=== PATIENT | female | born 1955 | race African-American/Black ===

== ENCOUNTER 2022-03-08 12:22 | Outpatient (CLI) | payer MEDICARE, SELFPAY ==
--- NOTE | 2022-03-08 | ECHO_ITS ---
Patient Info Name: Pauline Contreras Age: 66 years : 1955 Gender: Female Ht: 68 in Wt: 230 lbs BSA: 2.28 m2 HR: 64 bpm BP: 128 / 80 mmHg Heart Rhythm: Sinus Rhythm Exam Date: 03/08/2022 1:14 PM Exam Location: [facility] Patient Status: Preadmit Admit Date: 03/10/2022 Staff Ordering Physician: NatalyaKevin MD Spark Plug Tester: Rupal Bhatt RDCS Attending Provider: Michael, Kevin Hayes MD Referring Physician: Natalya LOPEZ; Exam Type: CA echo doppler color flow Study Info Indications - atypical aortic valve stenosis Complete two-dimensional, color flow and Doppler transthoracic echocardiogram is performed. Summary 1. Complete two-dimensional, color flow and Doppler transthoracic echocardiogram is performed. 2. Normal left ventricular size with mild concentric hypertrophy. Good systolic function of all segments with an ejection fraction of 64%. Normal diastolic function. 3. Mild aortic valve sclerosis with good excursion. Probably trileaflet although not all leaflets imaged well. No evidence of aortic or subaortic valve stenosis. 4. Unable to calculate the right ventricular systolic pressure on this study. 5. Normal sinus rhythm. Left Ventricle Left ventricular chamber dimension is normal. Left ventricular systolic function is normal, estimated at 65-70%. There is mildly increased left ventricular wall thickness. Left ventricular septal wall motion is normal. The left ventricular diastolic function is normal. Right Ventricle Right ventricular chamber dimension is normal. Right ventricular systolic function is normal. Left Atria Left atrial chamber dimension is mildly enlarged. Right Atria Right atrial chamber dimension is normal. Aortic Valve The aortic valve is probable trileaflet. There is mild aortic valve sclerosis. There is no aortic valve stenosis. There is no aortic valve regurgitation. Pulmonic Valve The pulmonic valve is normal. There is no pulmonic valve stenosis. There is no pulmonic regurgitation. Mitral Valve The mitral valve has normal leaflets. There is no mitral valve stenosis. There is no mitral valve regurgitation. Tricuspid Valve The tricuspid valve leaflets are normal. There is no significant tricuspid valve stenosis. There is trace tricuspid valve regurgitation. No pulmonary hypertension, estimated pulmonary arterial systolic pressure is Empty. Pericardium/Pleural The pericardium appears normal. There is no pericardial effusion. Inferior Vena Cava Normal inferior vena cava with >50% collapse upon inspiration consistent with Empty right atrial pressure, Empty. Aorta The aortic root size at the sinus of Valsalva is normal. The prox ascending aorta size is normal. Left Ventricular Outflow Tract Name Value Normal LVOT 2D LVOT Diameter 1.7 cm LVOT Doppler LVOT Peak Gradient 6 mmHg LVOT Mean Gradient 3 mmHg LVOT VTI 26 cm LVOT VTI/AV VTI Ratio 1.0 LVOT Stroke Volume
== END 2022-03-08 12:23 | disposition home or self-care (01) ==
LOC: ANHCARD 12:23
PROVIDERS: PCP Family Medicine
DX: I35.0 Nonrheumatic aortic (valve) stenosis (principal)
CPT/HCPCS: 93306

== ENCOUNTER 2022-03-10 15:04 | Outpatient (CLI) | payer MEDICARE, SELFPAY ==
--- NOTE | ~2022-03-10 | MM_ITS ---
EXAMINATION: MM screening mike BI w michelle HISTORY: Screening mammogram TECHNIQUE: Craniocaudal and mediolateral oblique 3-D tomosynthesis images were obtained and synthetic 2-D images were generated. CAD analysis was submitted and interpreted. COMPARISON: 01/16/2017 BREAST PARENCHYMAL COMPOSITION: There are scattered areas of fibroglandular density. FINDINGS: There is no suspicious mass, calcification, or architectural distortion to suggest malignan cy in either breast. There has been no suspicious interval change. IMPRESSION: 1. No mammographic evidence of malignancy. 2. Recommend routine screening mammography in one year. BI-RADS Category 1: Negative Reviewed, dictated and finalized at location A.
== END 2022-03-10 15:05 | disposition home or self-care (01) ==
PROVIDERS: PCP Family Medicine; Visit Provider Family Medicine
DX: Z12.31 Encounter for screening mammogram for malignant neoplasm of breast (principal); I35.0 Nonrheumatic aortic (valve) stenosis
CPT/HCPCS: 77063; 77067; 93306

== ENCOUNTER 2023-09-05 13:53 | Outpatient (CLI) | payer MEDICARE, SELFPAY ==
--- NOTE | ~2023-09-05 | CT_ITS ---
Non-contrast CT scan of the Abdomen and Pelvis Clinical indication: Flank pain Technique: 2.5 mm axial scans were obtained through the abdomen and pelvis without intravenous or or al contrast. Dose reduction technique was used on this scan by utilizing automated exposure control a nd iterative reconstruction technique. The dose-length product (DLP) was 909.80 mGy-cm. Findings: Images through the lung bases reveal large hiatal hernia. There is no evidence of renal or ureteral calculi. The kidneys and the ureters are nondilated. The liver, pancreas, gallbladder, and adrenals appear normal. There is no aortic aneurysm. There is no evidence of bowel obstruction. There is a ventral hernia inferior to the umbilicus in the midline, containing multiple small bowel loops. There is a fat-containing umbilical hernia just righ t of midline. Images through the pelvis were performed. There is no evidence of ascites or lymphadenopathy. Urinary bladder unremarkable. No pelvic mass seen. Impression: No acute abnormality evident. Ventral hernia inferior to the iliacus contains multiple small bowel loops. No bowel obstruction or b owel wall thickening. Additional fat-containing umbilical hernia. Reviewed, dictated and finalized at location . Impression: No acute abnormality evident. Ventral hernia inferior to the iliacus contains multiple small bowel loops. No bowel obstruction or bowel wall thickening. Additional fat-containing umbilical hernia.
== END 2023-09-05 13:54 ==
PROVIDERS: PCP Family Medicine; Visit Provider Family Medicine
DX: K43.9 Ventral hernia without obstruction or gangrene (principal); K42.9 Umbilical hernia without obstruction or gangrene
CPT/HCPCS: 74176

== ENCOUNTER 2023-12-25 13:20 | Outpatient (CLI) | payer MEDICARE, MEDICAID, SELFPAY ==
--- NOTE | ~2023-12-25 | MM_ITS ---
EXAMINATION: MM screening mike BI w michelle HISTORY: Screening TECHNIQUE: Craniocaudal and mediolateral oblique 3-D tomosynthesis images were obtained and synthetic 2-D images were generated. CAD analysis was submitted and interpreted. COMPARISON: Comparison to multiple prior studies sequentially, with oldest reviewed study dated 01/16. BREAST PARENCHYMAL COMPOSITION: Not dense: There are scattered areas of fibroglandular density. FINDINGS: There is no evidence of suspicious mass, calcification, or architectural distortion to sugg est malignancy in either breast. There has been no suspicious interval change. IMPRESSION: 1. No mammographic evidence of malignancy. 2. Recommend routine screening mammography in one year. BI-RADS Category 1: Negative Reviewed, dictated and finalized at location B.
== END 2023-12-25 13:21 | disposition home or self-care (01) ==
LOC: ANHIMG 13:25
PROVIDERS: PCP Family Medicine; Visit Provider Family Medicine
DX: Z12.31 Encounter for screening mammogram for malignant neoplasm of breast (principal)
CPT/HCPCS: 77063; 77067

== ENCOUNTER 2024-08-09 12:32 | Outpatient (CLI) | payer MEDICARE, SELFPAY ==
--- OUTSIDE RECORDS SUMMARY | 2024-08-09 12:37 | XMS_ITS | Referral Summary ---
Author Organization [facility] Address [address] [place] [address] Care Team Providers Care Mitten Stitcher Name Role Phone Luisito Conrad MD Unavailable [phone] Kevin Hoang MD Primary Care Provider Audie Escalera MD Unavailable [phone] Robinson Iyer MD Unavailable Encounters Date Type Department Care Team Description 07/30/2024 10:20 AM OPERATIONAL INTELLIGENCE OFFICER Office Visit [address] [place] [phone] Robinson Iyer MD Ventral hernia without obstruction or gangrene 07/24/2024 Telephone [facility] Primary Care at [address] [phone] Kevin Hoang MD Medical Question/Miscellaneous 07/23/2024 11:30 AM OPERATIONAL INTELLIGENCE OFFICER Office Visit [facility] Medical [facility] Primary Care at [address] [phone] Laya Ramirez NP Ventral hernia without obstruction or gangrene (Primary Dx); Primary osteoarthritis of both knees; Mild episode of recurrent major depressive disorder (HCC); Slow transit constipation 07/22/2024 Telephone [facility] Primary Care at [address] [phone] Kevin Hoang MD Medical Question/Miscellaneous 07/08/2024 Telephone [facility] Primary Care at [address] [phone] Cate Fernandez MA 07/03/2024 10:50 AM OPERATIONAL INTELLIGENCE OFFICER - 07/03/2024 11:59 PM OPERATIONAL INTELLIGENCE [place] [address] COPD with acute exacerbation (HCC); Shortness of breath Discharge Disposition: Discharge to home or self care 07/03/2024 Telephone [facility] Primary Care at [address] [phone] Kevin Hoang MD Hernia Question ; Medical Question/Miscellaneous 07/03/2024 11:00 AM OPERATIONAL INTELLIGENCE OFFICER Lab [facility] Outpatient Lab at [address] [phone] COPD (chronic obstructive pulmonary disease) (HCC) (Primary Dx) 07/03/2024 11:00 AM OPERATIONAL INTELLIGENCE OFFICER Ancillary Procedure [facility] Imaging at [address] [phone] COPD with acute exacerbation (HCC) 07/03/2024 10:15 AM OPERATIONAL INTELLIGENCE OFFICER Office Visit [facility] Primary Care at [address] [phone] Kevin Hoang MD COPD with acute exacerbation (HCC) (Primary Dx); Shortness of breath; Hiatal hernia 07/02/2024 Nurse Triage [facility] Primary Care at [address] [phone] Kevin Hoang MD 06/05/2024 Telephone [facility] Primary Care at [address] [phone] Kevin Hoang MD Additional Services Or Orders 05/30/2024 Orders Only [facility] Primary Care at [address] [phone] Kevin Hoang MD Vertigo (Primary Dx) 05/29/2024 Telephone [facility] Primary Care at [address] [phone] Kevin Hoang MD Medical Question/Miscellaneous 05/29/2024 Patient Message [facility] Primary Care at [address] [phone] Laya Ramirez NP Physical therapy 05/23/2024 Orders Only [facility] Primary Care at [address] [phone] Laya Ramirez NP 05/23/2024 Telephone [facility] Primary Care at [address] [phone] Laya Ramirez NP 05/22/2024 12:15 PM OPERATIONAL INTELLIGENCE OFFICER - 05/22/2024 11:59 PM OPERATIONAL INTELLIGENCE OFFICER Hospital Encounter [address] [address] Prediabetes Discharge Disposition: Discharge to home or self care 05/22/2024 12:15 PM OPERATIONAL INTELLIGENCE OFFICER Lab [facility] Outpatient Lab at [address] [phone] Class 2 severe obesity due to excess calories with serious comorbidity and body mass index (BMI) of 36.0 to 36.9 in adult (HCC) (Primary Dx) 05/22/2024 11:00 AM OPERATIONAL INTELLIGENCE OFFICER Office Visit [facility] Primary Care at [address] [phone] Laya Ramirez NP Annual physical exam (Primary Dx); Simple chronic bronchitis (HCC); Essential hypertension; Mixed hyperlipidemia; Class 2 severe obesity due to excess calories with serious comorbidity and body mass index (BMI) of 36.0 to 36.9 in adult (HCC); Mild episode of recurrent major depressive disorder (HCC); Post-menopausal; Prediabetes from Last 3 Months Allergies Active Allergy Reactions Criticality Noted Date Comments Codeine Other (See comments) Low Patient states it makes her hyper Sulfites Joint pain Low 07/05/2022 Medications coenzyme Q10 100 mg capsule Take 1 capsule (100 mg total) by mouth daily Active EPINEPHrine 0.3 mg/0.3 mL auto-injection syringeIndicatio ns:Anaphylaxis,p atient at risk of anaphylaxis Inject 0.3 mL (0.3 mg total) into the muscle as instructed as needed for anaphylaxis Call 911 after use. 2 each 2 3 Active naloxone (NARCAN) 4 mg/actuation spray,non-aeroso lIndications:Opi oid Toxicity,risk mitigation for opioid overdose Administer 1 spray into affected nostril(s) as needed for opioid reversal or respiratory depression Call 911. Administer a single spray in one nostril. Repeat every 3 minutes as needed if no or minimal response. 2 each 3 Active albuterol HFA (PROVENTIL HFA,VENTOLIN HFA,PROAIR HFA) 90 mcg/actuation inhaler INHALE 2 PUFFS BY MOUTH EVERY 4 HOURS NEEDED FOR WHEEZE OR SHORTNESS OF BREATH 8.5 each 2 3 Active sertraline (ZOLOFT) 50 mg tabletIndication s:Recurrent major depressive disorder, in partial remission (HCC) Take 1 tablet (50 mg total) by mouth 2 (two) times a day 180 tablet 3 3 Active atorvastatin (LIPITOR) 20 mg tablet TAKE 1 TABLET BY MOUTH EVERY DAY 90 tablet 3 3 Active docusate sodium (COLACE) 100 mg capsule TAKE 1 CAPSULE BY MOUTH TWICE A DAY 60 capsule 2 4 Active verapamiL (CALAN) 120 mg tablet Take 1 tablet (120 mg total) by mouth 2 (two) times a day 4 Active lisinopril-hydro CHLOROthiazide (ZESTORETIC) 20-12.5 mg per tablet Take 1 tablet by mouth 2 (two) times a day 180 tablet 3 4 11/07/19 25 Active APPLE CIDER VINEGAR ORAL Take by mouth Act raiza NON FORMULARY, FOR CLINIC ADMINISTERED MEDICATIONS ONLY, (not in database) 1 each once Super Beets Active vit A/vit C/vit E/zinc/copper (PRESERVISION AREDS ORAL) Take by mouth Acti ve fluticasone propionate (FLONASE) 50 mcg/actuation nasal spray Administer 1 spray into each nostril daily 3 each 1 4 Active fluticasone-umec lidin-vilanter (Trelegy Ellipta) 200-62.5-25 mcg inhaler Inhale 1 puff daily 30 each 11 4 Active neomycin-polymyx in B-dexAMETHasone (MAXITROL) 3.5 mg/g-10,000 unit/g-0.1 % ointment APPLY 0.25 INCH LEFT EYE NEEDED 3.5 g 3 4 Active cromolyn (OPTICROM) 4 % ophthalmic solution INSTILL 1 DROP INTO LEFT EYE ONCE A DAY 10 mL 3 4 Active amitriptyline (ELAVIL) 10 mg tabletIndication s:Idiopathic peripheral neuropathy TAKE 1 TABLET BY MOUTH EVERY DAY AT NIGHT 90 tablet 1 4 Active metFORMIN XR (GLUCOPHAGE XR) 500 mg 24 hr tablet Take 1 tablet (500 mg total) by mouth daily with breakfast 90 tablet 3 4 05/23/20 25 Active ALPRAZolam (XANAX) 0.25 mg tablet Take 1 tablet (0.25 mg total) by mouth 3 (three) times a day as needed for anxiety or sleep 60 tablet 1 4 Active lansoprazole (PREVACID) 30 mg capsule Take 1 capsule (30 mg total) by mouth daily 30 capsule 3 4 05/30/20 25 Active azelastine (ASTELIN) 137 mcg (0.1 %) nasal sprayIndications :Seasonal allergic rhinitis due to pollen ADMINISTER 2 SPRAYS INTO EACH NOSTRIL 2 (TWO) TIMES A DAY USE IN EACH NOSTRIL DIRECTED 30 mL 2 4 Active meclizine (ANTIVERT) 12.5 mg tablet TAKE 1 TABLET BY MOUTH 3 TIMES A DAY NEEDED FOR DIZZINESS. 30 tablet 1 5 Active famotidine (PEPCID) 40 mg tabletIndication s:Laryngeal spasm TAKE 1 TABLET BY MOUTH EVERY DAY AT NIGHT 90 tablet 5 Active montelukast (SINGULAIR) 10 mg tablet Take 1 tablet (10 mg total) by mouth nightly Active collagen/biotin/ ascorbic acid (COLLAGEN 1500 PLUS C ORAL) Take by mouth Act raiza UNABLE TO FIND Med Name: genious mushroom Active cyanocobalamin, vitamin B-12, (VITAMIN B-12 ORAL) Take by mouth Active Active Problems Problem Noted Date Diagnosed Date Primary osteoarthritis of both knees 07/23/2024 Slow transit constipation 07/23/2024 Annual physical exam 05/22/2024 Assessment & Plan (05/22/2024 11:47 AM OPERATIONAL INTELLIGENCE OFFICER): -Recommended: Healthy diet. Avoiding junk food/fast food. -30 minutes of exercise most days of the week. Increase to 45 minutes for weight loss. Health Maintenance reviewed - recommended influenza vaccine, dexa scan. -Influenza vaccine every year Recommend: -There are no preventive care reminders to display for this patient. -F/u in 1 year for Annual PE or sooner if needed Chronic rhinitis 12/12/2023 Assessment & Plan (12/12/2023 10:05 PM CDT): She is unwilling to rehome her dog despite confirmed allergy Continue montelukast daily Recommend daily use of azelastine and daily OTC antihistamine Saline nasal rinses and avoidance of triggers Recurrent major depression 06/01/2023 Assessment & Plan (05/22/2024 11:46 AM OPERATIONAL INTELLIGENCE OFFICER): Stable on current medication. Continue sertraline 100mg as ordered. May follow up in 6 months Also uses amitriptyline 10mg at bedtime for sleep Memory loss 11/11/2022 Class 2 severe obesity due t o excess calories with serious comorbidity and body mass index (BMI) of 36.0 to 36.9 in adult 01/07/2022 Assessment & Plan (05/24/2024 10:39 PM OPERATIONAL INTELLIGENCE OFFICER): BMI Follow-up includes: exercise counseling. Assessment & Plan (11/15/2023 10:35 AM CDT): BMI Follow-up includes: nutrition counseling, exercise counseling, and education provided. Assessment & Plan (05/10/2023 10:58 AM OPERATIONAL INTELLIGENCE OFFICER): BMI Follow-up includes: nutrition counseling, exercise counseling, and education provided. Assessment & Plan (02/23/2023 11:10 AM CDT): Monitor weight changes Healthy, low carbohydrate lifestyle and exercise for 150min/week recommended Assessment & Plan (11/11/2022 1:39 PM CDT): BMI Follow-up includes: nutrition counseling, exercise counseling and education provided. Assessment & Plan (01/07/2022 9:04 PM CDT): BMI Follow-up includes: nutrition counseling, exercise counseling and education provided. Ventral hernia without obstruction or gangrene 0 08/19/2021 Assessment & Plan (07/30/2024 10:54 AM OPERATIONAL INTELLIGENCE OFFICER): I do not fully appreciate any fascial defect but body habitus is somewhat limiting. We will start by ordering a CT scan of the abdomen pelvis to evaluate the area. If there is a hernia it appears that it will be below and lateral to the extent of her previous repair. We will call her with results of the CT once it returns and proceed accordingly. She was in understanding of the plan. Assessment & Plan (07/23/2024 11:48 AM OPERATIONAL INTELLIGENCE OFFICER): Not having pain, but it's inhibiting movement and exercise. Wants referral back to general surgery. Referral placed. Assessment & Plan (11/04/2021 10:30 AM CDT): Continue to wear abdominal binder as tolerates. We will call in a stool softener to help her avoid straining. Continue to avoid any significant heavy lifting as long as she can. She will call us back with any further questions or concerns. Assessment & Plan (10/10/2021 3:53 PM CDT): Will work on taper for hydrocodone. As it has been a short-term, will try going to every 8 hours PRN (as needed) first for the next 3 days, then every 12 hours PRN thereafter. Try to substitute with regular tylenol BP is controlled Considering if overactive bladder present, once off of opioid, call and we will do a trial of Myrbetriq (next week) Assessment & Plan (08/19/2021 1:46 PM OPERATIONAL INTELLIGENCE OFFICER): The patient has multiple fascial defects along the midline. There is roughly a distance of 13.5 cm from the most superior hernia to the inferior aspect of the bottom 1. Given the incarcerated bowel within it as well as the fact that this is causing discomfort with movements we discussed correcting it. We discussed if nothing is done there is a risk of bowel ischemia and possible perforation. Given her prior exploratory laparotomies we discussed this may not be able to be accomplished via a robotic approach and this may need to be converted to an open procedure. The patient was hesitant to consider implantation of mesh. However we discussed the strong risk of recurrence if it was just close primarily with suture. I have discussed the possibility of implanting a mesh that would resorb over the course of 12-18 months. She seems to be much more open to this suggestion. We will therefore set her up for a robotic assisted hernia repair with mesh implantation with the need for possible conversion to open. 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 Small portion sizes at meals and sit upright after completion. Assessment & Plan (08/19/2021 1:48 PM OPERATIONAL INTELLIGENCE OFFICER): Outside of the shortness of breath, which may be secondary to some underlying lung disorders, she is not experiencing any symptoms from the paraesophageal hernia. She does seem to want to ultimately have this addressed. Given the extent of her hernias I am not sure subjecting her to an operation to correct both would be in her best interest. Ideally I am going to correct the multiple midline hernias and use a piece of mesh that will resorb in 12-18 months. We would then during this time workup the hernia, EGD, manometry and pH testing and then set her up for repair. Until then she can do small frequent meals liquids from solids and ensure that she sit up with eating. Left hip pain 04/28/2021 Assessment & Plan (04/28/2021 10:08 AM OPERATIONAL INTELLIGENCE OFFICER): I'm not convinced serious injury; we will treat conservatively for a week, with ibuprofen 600-800 mg every 8 hours as needed, ice and heat to the tender area 3- 4 times a day, 20 min's per. Xray will be held in [facility] unless not improving through the week. Let us know Allergic rhinitis 04/07/2021 Assessment & Plan (08/10/2022 11:34 AM OPERATIONAL INTELLIGENCE OFFICER): Nasal saline spray (Simply saline, Little Remedies, [place], [place]) 2 second sprays or 2 squeezes into each nostril while looking down over the sink, do not need to sniff in. Astelin (azelastine) 2 sprays into each nostril while looking down over the sink, do not sniff in or blow nose after use for at least 30 minutes twice daily Pepcid 40 mg at bedtime Essential hypertension 10/16/2020 Assessment & Plan (05/22/2024 11:45 AM OPERATIONAL INTELLIGENCE OFFICER): Stable/ Improved. Blood pressure is adequately controlled on lisinopril (Prinivil) and hydrochlorothiazide, verapamil . We will not make any medication changes today. Will have her follow-up in 6 months for continued monitoring and management Assessment & Plan (05/12/2023 2:28 PM OPERATIONAL INTELLIGENCE OFFICER): Continuing verapamil, lisinopril-hct Labs ordered for next visit Discussed herbals. Might look into turmeric, krill oil with hyaluronic acid (e.g Solomon-Red), collagen joint supplement Continue good exercise practice, but don't push too far beyond tolerance. 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 Pharmacotherapy as ordered.- atorvastatin Lipids will be reassessed in 6 months. Idiopathic peripheral neuropathy COPD (chronic obstructive pulmonary disease) Assessment & Plan (05/24/2024 10:40 PM OPERATIONAL INTELLIGENCE OFFICER): Changing case finisher. 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 A1AT normal Resolved Problems Problem Noted Date Diagnosed Date Resolved Date Other chest pain 04/25/2023 05/22/2024 Acute recurrent maxillary sinusitis 09/05/2022 05/22/2024 Assessment & Plan (09/05/2022 11:17 AM CDT): Continue plain Mucinex, but add Corcidin HBP Will hold antibiotic in abeyance, for if symptoms last beyond 7 days or get worse will do empiric antibiotic (like Augmentin) Use a Neti pot with distilled water (ONLY) Vicks may be helpful with symptoms as well. Vasovagal near syncope 08/24/202205/22 Assessment & Plan (08/28/2022 11:09 AM CDT): Continue attention to hydration. Aim for 6-8 8-oz glasses (or equivalent) of water through the day Vitals did not show orthostatic hypotension (a drop in BP with position changes) As far as the BP, keep the evening doses at around 8:30-9 pm. Continue to monitor at home as well Laryngeal spasm 08/11/2022 05/22/2024 Assessment & Plan (08/11/2022 12:49 PM OPERATIONAL INTELLIGENCE OFFICER): Pepcid 40 mg at bedtime Chronic maxillary sinusitis 07/05/2022 05/22/2024 Assessment & Plan (07/05/2022 12:05 PM OPERATIONAL INTELLIGENCE OFFICER): Nasal saline spray (Simply saline, Little Remedies, [place], [place]) 2 second sprays or 2 squeezes into each nostril while looking down over the sink, do not need to sniff in. 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 Abdominal wall pain in both lower quadrants 02/17/2022 05/22/2024 Assessment & Plan (02/17/2022 12:48 PM CDT): Likely related to mesh, perhaps will improve with continued weight loss May start exercise (with harness), walking brisk 150 minutes per week If worsens, follow up with surgeon for evaluation; we may do imaging if there are changes internally (bowel issues, deeper pain, nausea/vomiting, etc) Hospital discharge follow-up 10/10/2021 05/22/2024 Assessment & Plan (10/10/2021 3:52 PM CDT): I have reviewed the hospital record, medications, and relevant testing from Pauline Akila CasonPraveen's recent admission. Complications and discharge plan have been noted, reviewed. Post-discharge testing has not been ordered. Incisional hernia with obstr uction but no gangrene 08/24/2021 01/05/2022 Overview (08/24/2021): Added automatically from request for surgery [id number] Assessment & Plan (10/07/2021 10:53 AM CDT): The patient will continue to wear her abdominal binder for comfort. Continue bowel regimen to avoid straining. Continue to avoid heavy lifting for a further 4 weeks. We discussed the seroma will just be watched unless it increases in size or become symptomatic and then we can drain it in the office. We will follow back up with the patient at 1 month to reassess her progress. She will call sooner if anything changes. Arthritis of right knee 05/19/2021 1209/2023 Internal hemorrhoids without complication 04/09/2021 05/22/2024 Preoperative cardiovascular examination 04/09/2021 05/22/2024 Assessment & Plan (11/07/2022 10:43 AM CDT): A(n) yearly Medicare Annual Wellness Visit has been performed today. Pauline Morton is not up to date on screening tests. She is in need of Breast cancer screening and Cholesterol screening. She is not up to date on needed preventative vaccinations; She is in need of Pneumonia (Prevnar-13 or Pneumovax-23) and Zoster. We discussed healthy lifestyle habits, educational material has been given. Medications reviewed, changes documented as per the medical record and discussed with patient along with risks vs benefits. Return in 6 months Assessment & Plan (04/09/2021 4:15 PM CDT): A yearly annual wellness visit plus establishment of care has been performed today. Pauline Morton is not up to date on screening tests. She is in need of DEXA, Mammogram and Colon cancer screening- these have been ordered. She is up to date on needed preventative vaccinations. Labs as ordered Reviewed meds Will plan on getting nerve conduction study to investigate neuropathy a bit; reportedly MRI was normal. Pain management discussed briefly; I'll want to get the EMG study first of course Depressive disorder 04/07/2021 05/22/20 24 Shoulder pain 04/07/2021 05/22/2024 Dyspnea on exertion 10/16/2020 05/22/20 Assessment & Plan (12/12/2023 10:04 PM CDT): Pulmonary function testing with no overt obstruction Radiographic emphysema Known allergies and repeated exposures are contributing. Her hiatal hernia also plays a role in her shortness of breath. No evidence of pulmonary hypertension with normal RVSP on echocardiogram, I do not see a C Weight loss and increase exercise Immunizations Immunization Administration Dates Next Due Influenza, Quadrivalent, Negra l Culture-based MDCK, Antibiotic Free, Intramuscular 05/11/2019 Influenza, Quadrivalent, Hig h Dose, Preservative Free, Intrr 05/10/2023,05/31/2022,04/07/2021 Influenza, Quadrivalent, Spl it, Preservative Free, Intramuscular 02/28/2020,05/25/2018 Influenza, Unspecified 02/23/2023(Deferr ed: Patient Refused),01/25/2023(Deferred: Patient Refused),06/01/2022,05/09/2022(Deferre d: Patient Refused) Moderna SARS-CoV-2 Monovalen t Vaccination (12+ YRS) 04/12/2021 Pneumococcal Conjugate Pcv20 05/10/2023 Tdap 08/21/2019 Social History Tobacco Use Types Packs/Day Years Used Date Smoking Tobacco: Former Cigarettes 1 10 1 972 - 1981 Smokeless Tobacco: Never Tobacco Cessation:Counseling Given: Not Answered AUDIT-C Answer Date Recorded Q1: How often do you have a drink containing alc ohol? Monthly or less 05/10/2023 Q2: How many drinks containi ng alcohol do you have on a typical day when you are drinking? 1 or 2 05/10/2023 Q3: How often do you have si x or more drinks on one occasion? Never 05/10/2023 PHQ-2 Answer Date Recorded PHQ-2 Total Score (If total score is 3 or more points, staff should administer the PHQ-9) 0 02/26/2024 Exercise Vital Sign Answer Date Recorde d On average, how many days pe r week do you engage in moderate to strenuous exercise (like a brisk walk)? 2 days 04/07/2021 On average, how many minutes do you engage in exercise at this level? 30 min 04/07/2021 Education Answer Date Recorded What is the highest level of school you have completed or the highest degree you have received? 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 on file Not on file Not on file Last Filed Vital Signs Vital Sign Reading Time Taken Comments Blood Pressure 141/86 07/30/2024 10:08 AM OPERATIONAL INTELLIGENCE OFFICER Pulse 84 07/30/2024 10:08 AM OPERATIONAL INTELLIGENCE OFFICER Temperature 36.1 C (96.9 F) 07/30/2024 10:08 AM OPERATIONAL INTELLIGENCE OFFICER Respiratory Rate 18 07/23/2024 11:33 AM OPERATIONAL INTELLIGENCE OFFICER Oxygen Saturation 96% 07/30/2024 10:08 AM OPERATIONAL INTELLIGENCE OFFICER Inhaled Oxygen Concentration - - Weight 107 kg (236 lb) 07/30/2024 10:08 AM OPERATIONAL INTELLIGENCE OFFICER Height 172.7 cm (5' 8 ) 07/30/2024 10:08 AM OPERATIONAL INTELLIGENCE OFFICER Body Mass Index 35.88 07/30/2024 10:08 AM OPERATIONAL INTELLIGENCE OFFICER Plan of Treatment Not on file Medical Devices Implanted Type Area Painter Plate Device Identifier Shelf Expiration Date Model / Serial / Lot [id number] Phasix St Mesh With Echo 2 Positioning System 25cm X 33cm Implanted:Qty: 1 on 09/20/2021 by Robinson Iyer MD at [facility] N/A: Abdomen [employer] 11/13/2022 [id number] / / [id number] Procedures Procedure Name Priority Date/Time Associated Diagnosis Comments XR CHEST PA LATERAL 2 VIEWS Schedule Routine, Read Routine (OP Routine) 07/03/2024 11:10 AM OPERATIONAL INTELLIGENCE OFFICER COPD with acute exacerbation (HCC) EGFR Routine 07/03/2024 10:57 AM OPERATIONAL INTELLIGENCE OFFICER COPD with acute exacerbation (HCC) Shortness of breath DIFFERENTIAL AUTO Routine 07/03/2024 10: 57 AM OPERATIONAL INTELLIGENCE OFFICER COPD with acute exacerbation (HCC) Shortness of breath PRO B-TYPE NATRIURETIC PEPTIDE Routine 07/03/2024 10:57 AM OPERATIONAL INTELLIGENCE OFFICER COPD with acute exacerbation (HCC) Shortness of breath COMPREHENSIVE METABOLIC PANEL Routine 07/03/2024 10:57 AM OPERATIONAL INTELLIGENCE OFFICER COPD with acute exacerbation (HCC) Shortness of breath CBC WITH AUTO DIFFERENTIAL Routine 07/03/2024 10:57 AM OPERATIONAL INTELLIGENCE OFFICER COPD with acute exacerbation (HCC) Shortness of breath HEMOGLOBIN A1C Routine 05/22/2024 12:15 PM OPERATIONAL INTELLIGENCE OFFICER Prediabetes MAMMOGRAPHY Routine 12/25/2023 3:13 PM CDT DEXA AXIAL SKELETON BONE DENSITY 1 OR MORE SITES Schedule Routine, Read Routine (OP Routine) 05/11/2021 4:07 PM OPERATIONAL INTELLIGENCE OFFICER 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 (current) use of inhaled steroids HEPATITIS C ANTIBODY Routine 04/07/2021 12:00 PM CDT Encounter for hepatitis C screening test for low risk patient COLONOSCOPY Routine 05/24/2016 from Last 3 Months or Most Recently Relevant to Health Maintenance Results * XR Chest PA Lateral 2 Views (07/03/2024 11:10 AM OPERATIONAL INTELLIGENCE OFFICER) Anatomical Region Laterality Modality Body, Chest N/A Digital Radiogra phy 07/05/2024 7:18 AM OPERATIONAL INTELLIGENCE OFFICER Narrative 07/05/2024 7:18 AM OPERATIONAL INTELLIGENCE OFFICER EXAM DESCRIPTION: XR CHEST PA LATERAL 2 VIEWS REASON FOR STUDY: Pt complains of recent SOB. No asthma. Hx of copd. No cancer or heart disease. No chest surgery. Former social smoker quit in 1981 TECHNIQUE: Frontal and lateral radiographic view(s) of the chest. COMPARISON: 05/02/2024 FINDINGS: The heart, mediastinum, and pulmonary vasculature are grossly stable. There is large hiatal hernia. There is no definite evidence of a pneumothorax. There is no definite evidence of a focal consolidation or pleural effusion. The osseous structures are acutely grossly stable. IMPRESSION: No definite evidence of acute cardiopulmonary process. Large hiatal hernia. THIS IS AN ELECTRONICALLY VERIFIED FINAL REPORT 07/05/2024 7:18 AM - Electronically signed by Joseph Colbert D.O. Joseph Colbert D.O. PS T: Report ID: [id number] Reading Location: [id number] Procedure Note Joseph Colbert, DO - 07/05/2024 EXAM DESCRIPTION: XR CHEST PA LATERAL 2 VIEWS REASON FOR STUDY: Pt complains of recent SOB. No asthma. Hx of copd. No cancer or heartdisease. No chest surgery. Former social smoker quit in 1981 TECHNIQUE: Frontal and lateral radiographic view(s) of the chest. COMPARISON: 05/02/2024 FINDINGS: The heart, mediastinum, and pulmonary vasculature are grossly stable. There is large hiatal hernia. There is no definite evidence of a pneumothorax. There is no definite evidence of a focal consolidation or pleural effusion. The osseous structures are acutely grossly stable. IMPRESSION: No definite evidence of acute cardiopulmonary process. Large hiatal hernia. THIS IS AN ELECTRONICALLY VERIFIED FINAL REPORT 07/05/2024 7:18 AM - Electronically signed by Joseph Colbert D.O. PS T: Report ID: [id number] Reading Location: [id number] Kevin Hoang MD IMG XR PROCEDURES Final Res ult * eGFR (07/03/2024 10:57 AM OPERATIONAL INTELLIGENCE OFFICER) eGFR 79 >=60 mL/min/1. 73 m2 Comment: Interpretive Data Reference Interval Normal >/= 90 mL/min/1.73m2 Mildly decreased* 60 - 89 mL/min/1.73m2 Mildly to moderately decreased 45 - 59 mL/min/1.73m2 Moderately to severely decreased 30 - 44 mL/min/1.73m2 Severely decreased 15 - 29 mL/min/1.73m2 Kidney Failure < 15 mL/min/1.73m2 *Relative to young adult level Estimated glomerular filtration rate is determined by the 2020 CKD-EPI equation recommended by the National Kidney Foundation (A Unifying Approach to GFR Estimation: Recommendations of the NKF-ASK Task Force on Reassessing the Inclusion of Race in Diagnosing Kidney Disease, JASN 2020). The CKD-EPI equation should not be used for patients with unstable renal function and has not been validated in children and those over 70. Current interpretive data was last reviewed 2021. Blood 07/03/2024 10:5 7 AM OPERATIONAL INTELLIGENCE OFFICER 07/03/2024 5:35 PM OPERATIONAL INTELLIGENCE OFFICER Kevin Hoang MD LAB BLOOD ORDERABLES Final Result JARAD RAMOS [id number] Department [place] [address] * Differential, auto (07/03/2024 10:57 AM OPERATIONAL INTELLIGENCE OFFICER) Neutrophil abs 3.1 1.5 - 6.5 K/cumm Imm gran abs 0.0 0.0 - 0.1 K/cumm [facility] Lymphocyte abs 2.4 0.8 - 3.3 K/cumm [facility] Monocyte abs 0.6 0.2 - 0.8 K/cumm [facility] Eosinophil abs 0.2 0.0 - 0.5 K/cumm [facility] Basophil abs 0.1 0.0 - 0.1 K/cumm [facility] Neutrophil pct 48.5 % [facility] Comment: Interpretive Data Percent cell count reference ranges are not reported, since discordance with absolute values may lead to misinterpretation of CBC data. Current Interpretive Data was last revised on 2017. Imm gran pct 0.2 % [facility] Comment: Interpretive Data Percent cell count reference ranges are not reported, since discordance with absolute values may lead to misinterpretation of CBC data. Current Interpretive Data was last revised on 2017. Lymphocyte pct 38.0 % [facility] Comment: Interpretive Data Percent cell count reference ranges are not reported, since discordance with absolute values may lead to misinterpretation of CBC data. Current Interpretive Data was last revised on 2017. Monocyte pct 9.5 % [facility] Comment: Interpretive Data Percent cell count reference ranges are not reported, since discordance with absolute values may lead to misinterpretation of CBC data. Current Interpretive Data was last revised on 2017. Eosinophil pct 2.7 % [facility] Comment: Interpretive Data Percent cell count reference ranges are not reported, since discordance with absolute values may lead to misinterpretation of CBC data. Current Interpretive Data was last revised on 2017. Basophil pct 1.1 % [facility] Comment: Interpretive Data Percent cell count reference ranges are not reported, since discordance with absolute values may lead to misinterpretation of CBC data. Current Interpretive Data was last revised on 2017. Blood 07/03/2024 10:5 7 AM OPERATIONAL INTELLIGENCE OFFICER 07/03/2024 5:26 PM OPERATIONAL INTELLIGENCE OFFICER us Kevin Hoang MD LAB BLOOD ORDERABLES Final Result JARAD RACHEL [id number] Department [place] [address] * Pro B-type natriuretic peptide (07/03/2024 10:57 AM OPERATIONAL INTELLIGENCE OFFICER) NT-proBNP 55 <=300 pg/mL Comment: Interpretive Comments: A. Dyspnea in Acute Care Setting All Ages: < 300 pg/ml, acute heart failure unlikely. < 50 yrs: 300 - 450 pg/ml, further investigation warranted. > 450 pg/ml, acute heart failure likely. 50 - 74 yrs: 300 - 900 pg/ml, further investigation warranted. > 900 pg/ml, acute heart failure likely . > or = 75 yrs: 450 - 1800 pg/ml, further investigation warranted. > 1800 pg/ml, acute heart failure likely. B. Non-acute Setting < 75 yrs < 125 pg/ml, rules out heart failure. > or = 125 pg/ml, further investigation warranted. > or = 75 yrs < 450 pg/ml, rules out heart failure. > or = 450 pg/ml, further investigation warranted. - Knowledge of each individual patient's NT-proBNP range may be more useful than using similar cut-points for every patient. Please note that marked elevations in NT-proBNP levels may be observed in state other than Left Ventricular Congestive Failure, including: acute coronary syndromes, right heart strain/failure (including pulmonary embolism and cor pulmonale), critical illness, renal failure, as well as advanced age. - References: 1. Jorge BREWSTER et.al. Eur Heart J. 2006:27:330-337. 2. Tatum RW, Cristobal AM. J. AM Sue Cardiol: Cardiovasc Imag. 2009;2: 216- 225. Interpretive Data Last Revised Date: 2018. Blood 07/03/2024 10:5 7 AM OPERATIONAL INTELLIGENCE OFFICER 07/03/2024 5:26 PM OPERATIONAL INTELLIGENCE OFFICER Kevin Hoang MD LAB BLOOD ORDERABLES Final Result JARAD [id number] Department [place] [address] * (ABNORMAL) CBC with auto differential (07/03/2024 10:57 AM OPERATIONAL INTELLIGENCE OFFICER) WBC 6.3 3.8 - 9.9 K/cumm Hgb 12.9 11.9 - 15.5 g/dL JARAD Hct 40.6 35.6 - 45.5 % JARAD Plt 247 150 - 400 K/cumm JARAD MPV 11.2 9.1 - 12.3 fL [facility] RBC 4.15 3.90 - 5.20 M/cumm [facility] MCV 97.8(H) 81.3 - 96.4 fL [facility] MCH 31.1 27.1 - 33.3 pg [facility] MCHC 31.8(L) 32.3 - 35.7 g/dL [facility] RDW CV 15.5(H) 11.1 - 14.9 % [facility] RDW SD 56.0(H) 35.7 - 48.1 fL [facility] NRBC abs 0.00 0.00 - 0.01 K/cumm [facility] Blood 07/03/2024 10:5 7 AM OPERATIONAL INTELLIGENCE OFFICER 07/03/2024 5:26 PM OPERATIONAL INTELLIGENCE OFFICER us Kevin Hoang MD LAB BLOOD ORDERABLES Final Result [facility] [id number] Department [place] [address] * Comprehensive metabolic panel (07/03/2024 10:57 AM OPERATIONAL INTELLIGENCE OFFICER) Sodium 142 135 - 145 mmol/L Potassium, pl 3.4 3.3 - 4.9 mmol/L [facility] Chloride 106 97 - 110 mmol/L [facility] CO2 24 22 - 32 mmol/L [facility] Anion gap 12 2 - 15 mmol/L [facility] BUN 12 6 - 25 mg/dL [facility] Creatinine 0.81 0.60 - 1.10 mg/dL [facility] Glucose 95 70 - 199 mg/dL [facility] Comment: Interpretive Data Fasting glucose >/= 126 mg/dl is diagnostic for diabetes. Fasting is defined as no caloric intake for at least 8 hours. Fasting glucose between 100 mg/dl to 125 mg/dl is diagnostic of prediabetes. In a patient with classic symptoms of hyperglycemia or hyperglycemic crisis, a random glucose >/= 200 mg/dl is diagnostic for diabetes. In the absence of unequivocal hyperglycemia, results should be confirmed by repeat testing. The classification and Diagnosis of Diabetes Diabetes Care 2021; 46: S19-S40. Current interpretive data was last revised 2022. Calcium 9.7 8.5 - 10.3 mg/dL [facility] Bilirubin, total 0.4 0.1 - 1.2 mg/dL [facility] Protein, pl 7.2 6.5 - 8.5 g/dL [facility] Albumin 3.9 3.5 - 5.0 g/dL [facility] Alk phos 63 40 - 130 Units/L [facility] ALT 24 7 - 45 Units/L [facility] AST 29 10 - 45 Units/L [facility] Blood 07/03/2024 10:5 7 AM OPERATIONAL INTELLIGENCE OFFICER 07/03/2024 5:26 PM OPERATIONAL INTELLIGENCE OFFICER Kevin Hoang MD LAB BLOOD ORDERABLES Final Result Performing Organization Address City/[facility] Co de Phone Number JARAD RAMOS [id number] Department [place] [address] * (ABNORMAL) Hemoglobin A1c (05/22/2024 12:15 PM OPERATIONAL INTELLIGENCE OFFICER) Hgb A1C 6.1(H) 4.0 - 5.6 % Estimated Average Glucose 128 mg/dL [facility] Comment: The ADA recommends reporting an estimated Average Glucose (eAG) with all Hemoglobin A1c results using the equation derived from a study of 507 normal and diabetic adults. Minority populations were underrepresented and children were not included. (Diabetes Care 31:1333-4926, 2008). The eAG is not equivalent to a fasting glucose. Blood 05/22/2024 12:1 5 PM OPERATIONAL INTELLIGENCE OFFICER 05/22/2024 10:08 PM OPERATIONAL INTELLIGENCE OFFICER Laya Ramirez NP LAB BLOOD ORDERABLES Final Resul t [facility] [address] Department [place] [address] * HM MAMMOGRAPHY (12/25/2023 3:13 PM CDT) Historical Provider HEALTH MAINTENANCE Final Result * Dexa Axial Skeleton Bone Density 1 Or 2 Site (05/11/2021 4:07 PM OPERATIONAL INTELLIGENCE OFFICER) Anatomical Region Laterality Modality Body N/A Other 05/12/2021 7:06 AM OPERATIONAL INTELLIGENCE OFFICER Impressions 05/12/2021 7:06 AM OPERATIONAL INTELLIGENCE OFFICER Normal bone mineral density of the spine and left hip. Electronically signed by: Denise Vail M.D. Narrative 05/12/2021 7:06 AM OPERATIONAL INTELLIGENCE OFFICER Examination: Bone densitometry of the lumbar spine and the left hip Order Date: 05/11/2021 3:00 PM History: Osteoporosis screening. Postmenopausal Comparison: Baseline Findings: The bone densitometry of the L1-L4 region, the left femoral neck and the total left hip was calculated using dual-energy x-ray absorptiometry. Summary: Bone mineral density (BMD) of the lumbar spine (L1-4): T-score -0.3; 97% of normal Bone mineral density (BMD) of the total left hip: T-score -0.6; 93% of normal Bone mineral density (BMD) of the left femoral neck: T-score -0.7; 91% of normal Bone mineral density of the spine and left hip falls within normal range. Procedure Note Denise Vail MD - 05/12/2021 Examination: Bone densitometry of the lumbar spine and the left hip Order Date: 05/11/2021 3:00 PM History: Osteoporosis screening. Postmenopausal Comparison: Baseline Findings: The bone densitometry of the L1-L4 region, the left femoral neck and the total left hip was calculated using dual-energy x-ray absorptiometry. Summary: Bone mineral density (BMD) of the lumbar spine (L1-4): T-score -0.3; 97% of normal Bone mineral density (BMD) of the total left hip: T-score -0.6; 93% of normal Bone mineral density (BMD) of the left femoral neck: T-score -0.7; 91% of normal Bone mineral density of the spine and left hip falls within normal range. IMPRESSION: Normal bone mineral density of the spine and left hip. Electronically signed by: Denise Vail M.D. Kevin Hoang MD IM DXA PROCEDURES Final Re sult * Hepatitis C antibody (04/07/2021 12:00 PM CDT) Hep C Ab Nonreactive Nonreactive JARAD RAMOS Comment: Interpretive Data Nonreactive: Antibodies to HCV not detected. Does NOT exclude the possibility of recent exposure to HCV. Equivocal: Equivocal for HCV antibodies. Supplemental molecular testing will be automatically performed to determine infection status in accordance with current CDC screening recommendations. Reactive: Positive for HCV antibodies. This may represent current or past HCV infection. Supplemental molecular testing will be automatically performed to determine current infection status in accordance with current CDC screening recommendations. Interpretive data was last revised on 2019. Blood 04/07/2021 12:0 0 PM CDT 04/07/2021 9:05 PM CDT Kevin Hoang MD LAB MICROBIOLOGY - GENERAL ORDERABLES Final Result JARAD RAMOS [id number] Department [place] [address] * HM COLONOSCOPY (05/24/2016) Historical Provider HEALTH MAINTENANCE Final Result from Last 3 Months or Most Recently Relevant to Health Maintenance Insurance [facility] MDCR HMO [facility] Address: [facility] [address] [place] [address] MEDICARE [employer] [facility] MEDIC[facility] Address: [address] [address] [place] [address] MEDICARE [employer] [facility] Address: [id number] [place] [address] Advance Directives For more information, please contact: [phone] * Full Code (Latest Code Status on File) Date Activated Date Inactivated Comments 09/20/2021 5:38 PM 09/22/2021 9:03 PM Care Teams Mitten Stitcher Relationship Specialty Start Date End Date Kevin Hoang MD [address] [facility] [address] [place] [address] PCP - General Family Medicine 07/25/22 Luisito Conrad MD [address] [place] [address] Consulting Physician Ophthalmology 04/07/21 Audie Escalera MD [address] [place] [address] Surgeon Orthopedic Surgery 11/07/22 Robinson Iyer MD [address] [place] [address] Consulting Physician General Surgery 11/07/22
--- OUTSIDE RECORDS SUMMARY | 2024-08-09 12:37 | XMS_ITS | Clinical Summary ---
Author Organization [facility] Address [address] [place] [address] Care Team Providers Care Milieu Counselor Name Role Phone Luisito Conrad MD Unavailable [phone] Kevin Hoang MD Primary Care Provider Audie Escalera MD Unavailable Robinson Iyer MD Unavailable Allergies Active Allergy Reactions Criticality Noted Date [...] 05/22/2024 Assessment & Plan (05/22/2024 11:47 AM GENERAL SUPERVISOR): -Recommended: Healthy diet. Avoiding junk food/fast food. [...] 06/01/2023 Assessment & Plan (05/22/2024 11:46 AM GENERAL SUPERVISOR): Stable on current medication. Continue sertraline 100mg as ordered. May follow up in 6 months Also uses amitriptyline 10mg at bedtime for sleep Memory loss 11/11/2022 Class 2 severe obesity due t o excess calories with serious comorbidity and body mass index (BMI) of 36.0 to 36.9 in adult 01/07/2022 Assessment & Plan (05/24/2024 10:39 PM GENERAL SUPERVISOR): BMI Follow-up includes: exercise counseling. Assessment & Plan (11/15/2023 10:35 AM CDT): BMI Follow-up includes: nutrition counseling, exercise counseling, and education provided. Assessment & Plan (05/10/2023 10:58 AM GENERAL SUPERVISOR): BMI Follow-up includes: nutrition counseling, exercise counseling, [...] 08/19/2021 Assessment & Plan (07/30/2024 10:54 AM GENERAL SUPERVISOR): I do not fully appreciate any fascial [...] plan. Assessment & Plan (07/23/2024 11:48 AM GENERAL SUPERVISOR): Not having pain, but it's inhibiting movement [...] week) Assessment & Plan (08/19/2021 1:46 PM GENERAL SUPERVISOR): The patient has multiple fascial defects along [...] completion. Assessment & Plan (08/19/2021 1:48 PM GENERAL SUPERVISOR): Outside of the shortness of breath, which [...] 04/28/2021 Assessment & Plan (04/28/2021 10:08 AM GENERAL SUPERVISOR): I'm not convinced serious injury; we will treat conservatively for a week, with ibuprofen 600-800 mg every 8 hours as needed, ice and heat to the tender area 3- 4 times a day, 20 min's per. Xray will be held in abeyance unless not improving through the week. Let us know Allergic rhinitis 04/07/2021 Assessment & Plan (08/10/2022 11:34 AM GENERAL SUPERVISOR): Nasal saline spray (Simply saline, Little Remedies, [place], [place]ier) 2 second sprays or 2 squeezes into each nostril while looking down over the sink, do not need to sniff in. Astparish (azelastine) 2 sprays into each nostril while looking down over the sink, do not sniff in or blow nose after use for at least 30 minutes twice daily Pepcid 40 mg at bedtime Essential hypertension 10/16/2020 Assessment & Plan (05/22/2024 11:45 AM GENERAL SUPERVISOR): Stable/ Improved. Blood pressure is adequately controlled on lisinopril (Prinivil) and hydrochlorothiazide, verapamil . We will not make any medication changes today. Will have her follow-up in 6 months for continued monitoring and management Assessment & Plan (05/12/2023 2:28 PM GENERAL SUPERVISOR): Continuing verapamil, lisinopril-hct Labs ordered for next visit Discussed herbals. Might look into turmeric, krill oil with hyaluronic acid (e.g Solomon-Red), collagen joint supplement Continue good exercise practice, but don't push too far beyond tolerance. 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 Pharmacotherapy as ordered.- atorvastatin Lipids will be reassessed in 6 months. Idiopathic peripheral neuropathy COPD (chronic obstructive pulmonary disease) Assessment & Plan (05/24/2024 10:40 PM GENERAL SUPERVISOR): Changing roller setter. Due to proximity Assessment & Plan (12/12/2023 [...] 05/22/2024 Assessment & Plan (08/11/2022 12:49 PM GENERAL SUPERVISOR): Pepcid 40 mg at bedtime Chronic maxillary sinusitis 07/05/2022 05/22/2024 Assessment & Plan (07/05/2022 12:05 PM GENERAL SUPERVISOR): Nasal saline spray (Simply saline, Little Remedies, [place], [place]) 2 second sprays or 2 squeezes into [...] record, medications, and relevant testing from Pauline Morton's recent admission. Complications and discharge plan have been noted, reviewed. Post-discharge testing has not been ordered. Incisional hernia with obstr uction but no gangrene 08/24/2021 01/05/2022 Overview (08/24/2021): Added automatically from request for surgery [id number] Assessment & Plan (10/07/2021 10:53 AM CDT): [...] if anything changes. Arthritis of right knee 05/19/202109/2023 Internal hemorrhoids without complication 04/09/2021 05/22/2024 Preoperative [...] first of course Depressive disorder 04/07/2021 05/22/20 Shoulder pain 04/07/2021 05/22/2024 Dyspnea on exertion 10/16/2020 05/22/20 Assessment & Plan (12/12/2023 10:04 PM CDT): Pulmonary function testing with no overt obstruction Radiographic emphysema Known allergies and repeated exposures are contributing. Her hiatal hernia also plays a role in her shortness of breath. No evidence of pulmonary hypertension with normal RVSP on echocardiogram, I do not see a [facility] Weight loss and increase exercise Encounters Date Type Department Care Team Description 07/30/2024 10:20 AM GENERAL SUPERVISOR Office Visit [address] [place] [phone] Robinson Iyer MD Ventral hernia without obstruction or gangrene 07/24/2024 Telephone [facility] at [address] [phone] Kevin Hoang MD Medical Question/Miscellaneous 07/23/2024 11:30 AM GENERAL SUPERVISOR Office Visit [facility] at [address] [phone] Laya Ramirez NP Ventral hernia without obstruction or gangrene (Primary Dx); Primary osteoarthritis of both knees; Mild episode of recurrent major depressive disorder (HCC); Slow transit constipation 07/22/2024 Telephone [facility] at [address] [phone] Kevin Hoang MD Medical Question/Miscellaneous 07/08/2024 Telephone [facility] at [address] [phone] Cate Fernandez MA 07/03/2024 11:00 AM GENERAL SUPERVISOR Lab [facility] Outpatient Lab at [address] [phone] COPD (chronic obstructive pulmonary disease) (HCC) (Primary Dx) 07/03/2024 11:00 AM GENERAL SUPERVISOR Ancillary Procedure [facility] Imaging at [address] [phone] COPD with acute exacerbation (HCC) 07/03/2024 10:50 AM GENERAL SUPERVISOR - 07/03/2024 11:59 PM GENERAL SUPERVISOR Hospital Encounter [address] [address] COPD with acute exacerbation (HCC); Shortness of breath Discharge Disposition: Discharge to home or self care 07/03/2024 10:15 AM GENERAL SUPERVISOR Office Visit [facility] at [address] [phone] Kevin Hoang MD COPD with acute exacerbation (HCC) (Primary Dx); Shortness of breath; Hiatal hernia 07/03/2024 Telephone [facility] at [address] [phone] Kevin Hoang MD Hernia Question ; Medical Question/Miscellaneous 07/02/2024 Nurse Triage [facility] at [address] [phone] Kevin Hoang MD 06/05/2024 Telephone [facility] at [address] [phone] Kevin Hoang MD Additional Services Or Orders 05/30/2024 Orders Only [facility] at [address] [phone] Kevin Hoang MD Vertigo (Primary Dx) 05/29/2024 Telephone [facility] at [address] [phone] Kevin Hoang MD Medical Question/Miscellaneous 05/29/2024 Patient Message [facility] at [address] [phone] Laya Ramirez NP Physical therapy 05/23/2024 Orders Only [facility] at [address] [phone] Laya Ramirez NP 05/23/2024 Telephone [facility] at [address] [phone] Laya Ramirez NP 05/22/2024 12:15 PM GENERAL SUPERVISOR - 05/22/2024 11:59 PM GENERAL SUPERVISOR Hospital Encounter [address] [address] Prediabetes Discharge Disposition: Discharge to home or self care 05/22/2024 12:15 PM GENERAL SUPERVISOR Lab [facility] Outpatient Lab at [address] [phone] Class 2 severe obesity due to excess calories with serious comorbidity and body mass index (BMI) of 36.0 to 36.9 in adult (HCC) (Primary Dx) 05/22/2024 11:00 AM GENERAL SUPERVISOR Office Visit [facility] at [address] [phone] Laya Ramirez NP Annual physical exam (Primary Dx); Simple chronic bronchitis (HCC); Essential hypertension; Mixed hyperlipidemia; Class 2 severe obesity due to excess calories with serious comorbidity and body mass index (BMI) of 36.0 to 36.9 in adult (HCC); Mild episode of recurrent major depressive disorder (HCC); Post-menopausal; Prediabetes from Last 3 Months Immunizations Immunization Administration Dates Next Due Influenza, Quadrivalent, Negra l Culture-based MDCK, Antibiotic Free, Intramuscular 05/11/2019 Influenza, Quadrivalent, Hig h Dose, Preservative Free, Intrr 05/10/2023,05/31/2022,04/07/2021 Influenza, Quadrivalent, Spl it, Preservative Free, Intramuscular 02/28/2020,05/25/2018 Influenza, Unspecified 02/23/2023(Deferr ed: Patient Refused),01/25/2023(Deferred: Patient Refused),06/01/2022,05/09/2022(Deferre d: Patient Refused) Moderna SARS-CoV-2 Monovalen t Vaccination (12+ YRS) 04/12/2021 Pneumococcal Conjugate Pcv20 05/10/2023 Tdap 08/21/2019 Surgical History Surgery Date Site/Laterality Comments SPLENECTOMY, PARTIAL 06/19/1983 - 06/18/1984 OCULAR PROSTHESIS REMOVAL 06/19/2009 - 06/18/2010 Left secondary to failed retina surgery TOTAL ABDOMINAL HYSTERECTOMY W/ BILATERAL SALPINGOOPHORECTOMY 06/19/2000 - 06/18/2001 AUGMENTATION MAMMOPLASTY 06/19/2005 - 06/18/2006 Bilateral HERNIA REPAIR 09/20/2021 Medical History Medical History Date Comments Arthritis COPD (chronic obstructive pulmonary disease) (HC C) Neuropathy (CMS/HCC) legs Hypertension Hyperlipidemia History of ITP Depression MVP (mitral valve prolapse) Internal hemorrhoids without complication 2020 Hiatal hernia Peripheral neuropathy Chronic rhinitis 12/12/2023 Family History Medical History Relation Name Comments Hypertension Brother 1 Brain cancer Brother 2 Bone cancer Father Cancer Father Diabetes Father Heart disease Father Heart attack Maternal Grandfather No Known Problems Maternal Grandmother Hypertension Mother Arthritis Other Bleeding Disorder Other No Known Problems Paternal Grandfather Diabetes Paternal Grandmother Hypertension Sister 1 Hypertension Sister 2 Hypertension Sister 3 Hypertension Sister 4 Hypertension Sister 5 Relation Name Status Comments Brother 1 Alive Brother 2 Father Maternal Grandfather Maternal Grandmother Mother Other Paternal Grandfather Paternal Grandmother Sister 1 Alive Sister 2 Alive Sister 3 Alive Sister 4 Alive Sister 5 Alive Social History Tobacco Use Types Packs/Day Years [...] on file Legal Sex Female 3:37 AM GENERAL SUPERVISOR Gender Identity Not on file Sexual Orientation Not on file 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 Not on file Not on file Obstetrics History Last Filed Vital Signs Vital Sign Reading Time Taken Comments Blood Pressure 141/86 07/30/2024 10:08 AM GENERAL SUPERVISOR Pulse 84 07/30/2024 10:08 AM GENERAL SUPERVISOR Temperature 36.1 C (96.9 F) 07/30/2024 10:08 AM GENERAL SUPERVISOR Respiratory Rate 18 07/23/2024 11:33 AM GENERAL SUPERVISOR Oxygen Saturation 96% 07/30/2024 10:08 AM GENERAL SUPERVISOR Inhaled Oxygen Concentration - - Weight 107 kg (236 lb) 07/30/2024 10:08 AM GENERAL SUPERVISOR Height 172.7 cm (5' 8 ) 07/30/2024 10:08 AM GENERAL SUPERVISOR Body Mass Index 35.88 07/30/2024 10:08 AM GENERAL SUPERVISOR Plan of Treatment Health Maintenance Due Date Last Done Comments Osteoporosis Screening-Bone Density Scan 05/11/2023 05/11/2021 Covid-19 Vaccine ( season) 2024 04/12/2021, 09/07/2020, 08/06/2020 Influenza Vaccine (#1) 2024 , 06/01/2022, 05/31/2022, Additional history exists Zoster Vaccine (1 of 2) 09/04/2024 Post poned from 2005 (Insurance / Financial) Breast Cancer Screening-Mammogram 12/24/2024 12/25/2023, 03/10/2022, 06/24/2014, Additional history exists Depression Screening 02/25/2025 02/26/2024, 08/23/2023, 06/01/2023, Additional history exists Fall Risk Assessment 02/25/2025 02/26/2024, 08/23/2023, 06/01/2023, Additional history exists Well Visit 65+ 05/22/2025 05/22/2024, 05/07/2022, 04/07/2021 Colon Cancer Screening-Colonoscopy 05/24/2026 05/24/2016 DTaP/Tdap/Td Vaccine (2 - Td or Tdap) 08/20/2029 08/21/2019 Colon Cancer Screening-CT Colonography Discontinued 05/24/2016 Colon Cancer Screening-DNA Stool Discontinued 05/24/2016 Colon Cancer Screening-FIT Discontinued 05/24/2016 Colon Cancer Screening-Sigmoidoscopy Discontinued 05/24/2016 Hepatitis C Screening Completed 04/07/2021 Pneumococcal vaccine 65+ Completed 05/10/2023 Hepatitis B Screening Completed 04/18/2024 Medical Devices Implanted Type Area Adjunct Faculty Device Identifier Shelf Expiration Date Model / Serial / Lot [id number] Ph[employer]ix St Mesh With Echo 2 Positioning System 25cm X 33cm Implanted:Qty: 1 on 09/20/2021 by Robinson Iyer MD at [facility] N/A: Abdomen [facility] 11/13/2022 [id number] / / [id number] Procedures Procedure Name Priority Date/Time Associated Diagnosis Comments XR CHEST PA LATERAL 2 VIEWS Schedule Routine, Read Routine (OP Routine) 07/03/2024 11:10 AM GENERAL SUPERVISOR COPD with acute exacerbation (HCC) EGFR Routine 07/03/2024 10:57 AM GENERAL SUPERVISOR COPD with acute exacerbation (HCC) Shortness of breath DIFFERENTIAL AUTO Routine 07/03/2024 10: 57 AM GENERAL SUPERVISOR COPD with acute exacerbation (HCC) Shortness of breath PRO B-TYPE NATRIURETIC PEPTIDE Routine 07/03/2024 10:57 AM GENERAL SUPERVISOR COPD with acute exacerbation (HCC) Shortness of breath COMPREHENSIVE METABOLIC PANEL Routine 07/03/2024 10:57 AM GENERAL SUPERVISOR COPD with acute exacerbation (HCC) Shortness of breath CBC WITH AUTO DIFFERENTIAL Routine 07/03/2024 10:57 AM GENERAL SUPERVISOR COPD with acute exacerbation (HCC) Shortness of breath HEMOGLOBIN A1C Routine 05/22/2024 12:15 PM GENERAL SUPERVISOR Prediabetes HM MAMMOGRAPHY Routine 12/25/2023 3:13 PM CDT DEXA AXIAL SKELETON BONE DENSITY 1 OR MORE SITES Schedule Routine, Read Routine (OP Routine) 05/11/2021 4:07 PM GENERAL SUPERVISOR Screening for osteoporosis ad terminal makeup operator (current) use of inhaled steroids HEPATITIS C ANTIBODY Routine 04/07/2021 12:00 PM CDT Encounter for hepatitis C screening test for low risk patient HM COLONOSCOPY Routine 05/24/2016 from Last 3 Months or Most Recently Relevant to Health Maintenance Results * XR Chest PA Lateral 2 Views (07/03/2024 11:10 AM GENERAL SUPERVISOR) Anatomical Region Laterality Modality Body, Chest N/A Digital Radiogra phy 07/05/2024 7:18 AM GENERAL SUPERVISOR Narrative 07/05/2024 7:18 AM GENERAL SUPERVISOR EXAM DESCRIPTION: XR CHEST PA LATERAL 2 [...] Joseph Colbert D.O. PS T: Report ID: [id number] Reading Location: [id number] Procedure Note Joseph Colbert, DO - 07/05/2024 [...] Joseph Colbert D.O. PS T: Report ID: [id number] Reading Location: [place] [address] Kevin Hoang MD IMG XR PROCEDURES Final Res ult * eGFR (07/03/2024 10:57 AM GENERAL SUPERVISOR) eGFR 79 >=60 mL/min/1. 73 m2 Comment: [...] of Race in Diagnosing Kidney Disease, JASN 202). The CKD-EPI equation should not be used for patients with unstable renal function and has not been validated in children and those over 70. Current interpretive data was last reviewed 2021. Blood 07/03/2024 10:5 7 AM GENERAL SUPERVISOR 07/03/2024 5:35 PM GENERAL SUPERVISOR Kevin Hoang MD LAB BLOOD ORDERABLES Final Result [facility] [id number] [address] Department [place] [address] * Differential, auto (07/03/2024 10:57 AM GENERAL SUPERVISOR) Neutrophil abs 3.1 1.5 - 6.5 K/cumm Imm gran abs 0.0 0.0 - 0.1 K/cumm [facility] Lymphocyte abs 2.4 0.8 - 3.3 K/cumm [facility] Monocyte abs 0.6 0.2 - 0.8 K/cumm [facility] Eosinophil abs 0.2 0.0 - 0.5 K/cumm [facility] Basophil abs 0.1 0.0 - 0.1 K/cumm [facility] Neutrophil pct 48.5 % [facility] Comment: Interpretive Data Percent cell count reference ranges are not reported, since discordance with absolute values may lead to misinterpretation of CBC data. Current Interpretive Data was last revised on 2017. Imm gran pct 0.2 % [facility] Comment: Interpretive Data Percent cell count reference ranges are not reported, since discordance with absolute values may lead to misinterpretation of CBC data. Current Interpretive Data was last revised on 2017. Lymphocyte pct 38.0 % [facility] Comment: Interpretive Data Percent cell count reference ranges are not reported, since discordance with absolute values may lead to misinterpretation of CBC data. Current Interpretive Data was last revised on 2017. Monocyte pct 9.5 % [facility] Comment: Interpretive Data Percent cell count reference ranges are not reported, since discordance with absolute values may lead to misinterpretation of CBC data. Current Interpretive Data was last revised on 2017. Eosinophil pct 2.7 % [facility] Comment: Interpretive Data Percent cell count reference ranges are not reported, since discordance with absolute values may lead to misinterpretation of CBC data. Current Interpretive Data was last revised on 2017. Basophil pct 1.1 % [facility] Comment: Interpretive Data Percent cell count reference ranges are not reported, since discordance with absolute values may lead to misinterpretation of CBC data. Current Interpretive Data was last revised on 2017. Blood 07/03/2024 10:5 7 AM GENERAL SUPERVISOR 07/03/2024 5:26 PM GENERAL SUPERVISOR Kevin Hoang MD LAB [place] [address] [address] Department of Laboratories [place] [id number] * Pro B-type natriuretic peptide (07/03/2024 10:57 AM GENERAL SUPERVISOR) NT-proBNP 55 <=300 pg/mL Comment: Interpretive Comments: [...] Eur Heart J. 2006:27:330-337. 2. Tatum RW, Susu FARAH. J. AM Sue Cardiol: Cardiovasc Imag. 2009;2: 216- 225. Interpretive Data Last Revised Date: 2018. Blood 07/03/2024 10:5 7 AM GENERAL SUPERVISOR 07/03/2024 5:26 PM GENERAL SUPERVISOR Kevin Hoang MD LAB BLOOD ORDERABLES Final Result Performing Organization Address City/[facility] Co de Phone Number J[place] RAMOS [id number] [address] [place] [address] * (ABNORMAL) CBC with auto differential (07/03/2024 10:57 AM GENERAL SUPERVISOR) WBC 6.3 3.8 - 9.9 K/cumm Hgb 12.9 11.9 - 15.5 g/dL [facility] Hct 40.6 35.6 - 45.5 % [facility] Plt 247 150 - 400 K/cumm [facility] MPV 11.2 9.1 - 12.3 fL [facility] RBC 4.15 3.90 - 5.20 M/cumm [facility] MCV 97.8(H) 81.3 - 96.4 fL [facility] MCH 31.1 27.1 - 33.3 pg [facility] MCHC 31.8(L) 32.3 - 35.7 g/dL [facility] RDW CV 15.5(H) 11.1 - 14.9 % [facility] RDW SD 56.0(H) 35.7 - 48.1 fL [facility] NRBC abs 0.00 0.00 - 0.01 K/cumm [facility] Blood 07/03/2024 10:5 7 AM GENERAL SUPERVISOR 07/03/2024 5:26 PM GENERAL SUPERVISOR Kevin Hoang MD LAB BLOOD ORDERABLES Final Result Performing Organization Address City/[facility]/ZIP Co de Phone Number JARAD RAMOS [phone] [address] [place] [address] * Comprehensive metabolic panel (07/03/2024 10:57 AM GENERAL SUPERVISOR) Sodium 142 135 - 145 mmol/L Potassium, pl 3.4 3.3 - 4.9 mmol/L [facility] Chloride 106 97 - 110 mmol/L [facility] CO2 24 22 - 32 mmol/L [facility] Anion gap 12 2 - 15 mmol/L [facility] BUN 12 6 - 25 mg/dL [facility] Creatinine 0.81 0.60 - 1.10 mg/dL [facility] Glucose 95 70 - 199 mg/dL [facility] Comment: Interpretive Data Fasting glucose >/= [...] 2022. Calcium 9.7 8.5 - 10.3 mg/dL [facility] Bilirubin, total 0.4 0.1 - 1.2 mg/dL [facility] Protein, pl 7.2 6.5 - 8.5 g/dL [facility] Albumin 3.9 3.5 - 5.0 g/dL [facility] Alk phos 63 40 - 130 Units/L [facility] ALT 24 7 - 45 Units/L [facility] AST 29 10 - 45 Units/L [facility] Blood 07/03/2024 10:5 7 AM GENERAL SUPERVISOR 07/03/2024 5:26 PM GENERAL SUPERVISOR Kevin Hoang MD LAB BLOOD ORDERABLES Final Result [facility] [address] [address] Department [place] [address] * (ABNORMAL) Hemoglobin A1c (05/22/2024 12:15 PM GENERAL SUPERVISOR) Hgb A1C 6.1(H) 4.0 - 5.6 % Estimated Average Glucose 128 mg/dL [facility] Comment: The ADA recommends reporting an estimated Average Glucose (eAG) with all Hemoglobin A1c results using the equation derived from a study of 507 normal and diabetic adults. Minority populations were underrepresented and children were not included. (Diabetes Care 31:9402-5479, 2008). The eAG is not equivalent to a fasting glucose. Blood 05/22/2024 12:1 5 PM GENERAL SUPERVISOR 05/22/2024 10:08 PM GENERAL SUPERVISOR Laya Ramirez NP LAB BLOOD ORDERABLES Final Resul t [facility] [place]OS [address] [address] Department [place] [address] * HM MAMMOGRAPHY (12/25/2023 3:13 PM CDT) Historical Provider HEALTH MAINTENANCE Final Result * Dexa Axial Skeleton Bone Density 1 Or 2 Site (05/11/2021 4:07 PM GENERAL SUPERVISOR) Anatomical Region Laterality Modality Body N/A Other 05/12/2021 7:06 AM GENERAL SUPERVISOR Impressions 05/12/2021 7:06 AM GENERAL SUPERVISOR Normal bone mineral density of the spine and left hip. Electronically signed by: Denise Vail M.D. Narrative 05/12/2021 7:06 AM GENERAL SUPERVISOR Examination: Bone densitometry of the lumbar spine [...] by: Denise Vail M.D. Kevin Hoang MD IMG DXA PROCEDURES Final Re sult * Hepatitis [...] LAB MICROBIOLOGY - GENERAL ORDERABLES Final Result Performing Organization Address City/State/[facility] [place] Phone Number JARAD [phone] [address] Department [place] [address] * HM COLONOSCOPY (05/24/2016) Kristan Barriga MD HEALTH MAINTENANCE Final Result from Last 3 Months or Most Recently Relevant to Health Maintenance Insurance [facility] MDCR HMO REF MEDICARE SOLUTIONS MEDICARE SOLUTIONS Advance Directives For more information, please contact: [phone] * Full Code (Latest Code Status on File) Date Activated Date Inactivated Comments 09/20/2021 5:38 PM 09/22/2021 9:03 PM Care Teams Milieu Counselor Relationship Specialty Start Date End Date Kevin Hoang MD [address] [facility] [address] [place] [address] PCP - General Family Medicine 07/25/22 Luisito Conrad MD [address] [place] [address] Consulting Physician Ophthalmology 04/07/21 Audie Escalera MD [address] [place] [address] [address] [place] [address] Surgeon Orthopedic Surgery 11/07/22 Robinson Iyer MD [address] [place] [address] [address] [place] [address] Consulting Physician General Surgery 11/07/22
--- OUTSIDE RECORDS SUMMARY | 2024-08-09 12:37 | XMS_ITS | Encounter Summary ---
Author Organization [facility] Healthcare Address [address] [place] [address] Care Team Providers Care Truck Crane Operator Name Role Phone Luisito Conrad MD Unavailable [phone] Kevin Hoang MD Primary Care Provider Audie Escalera MD Unavailable [phone] Robinson Iyer MD Unavailable Reason for Visit * Reason Onset Date Comments Medical Question/Miscellaneous 07/22/2024 Encounter Details Date Type Department Care Team (Late st Contact Info) Description 07/22/[address] 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 07-23-24. Please follow up Does message need to be routed? Yes-Action Needed CIPAL ASSOCIATE documented in this encounter Plan of Treatment Not on file documented as of this encounter Visit Diagnoses Not on filedocumented in this encounter Care Teams Truck Crane Operator Relationship Specialty Start Date End Date Kevin Hoang MD [address] [address] PCP - General Family Medicine 07/25/22 Luisito Conrad MD [address] [place] [address] Consulting Physician Ophthalmology 04/07/21 Audie Escalera MD [address] [facility] [address] [place] [address] [place] [address] Surgeon Orthopedic Surgery 11/07/22 Robinson Iyer MD [address] [facility] [address] L[address] [place] [address] [place] [address] Consulting Physician General Surgery 11/07/22 documented as of this encounter
--- OUTSIDE RECORDS SUMMARY | 2024-08-09 12:37 | XMS_ITS | Encounter Summary ---
Author Organization [facility] Healthcare Address [address] [place] [address] Care Team Providers Care Otr Company Truck Driver Name Role Phone Luisito Conrad MD Unavailable Kevin Hoang MD Primary Care Provider Audie Escalera MD Unavailable [phone] Robinson Iyer MD Unavailable Encounter Details Date Type Department Care Team (Late st Contact Info) Description 12/05/2022 Telephone [facility] [address] [place] [address] Coreen Gonzalez RN Social History Tobacco Use Types Packs/Day Years Used Date Smoking Tobacco: Former Cigarettes 1 - 1981 Smokeless Tobacco: Never AUDIT-C Answer Date Recorded Q1: How often do you have a drink containing alc ohol? 2-4 times a month 09/20/2021 Q2: How many drinks containi ng alcohol do you have on a typical day when you are drinking? 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 Not on file Not on file documented as of this encounter Plan of Treatment Not on file documented as of this encounter Visit Diagnoses Not on filedocumented in this encounter Care Teams Otr Company Truck Driver Relationship Specialty Start Date End Date Kevin Hoang MD [address] [facility] [address] [place] [address] PCP - General Family Medicine 07/25/22 Luisito Conrad MD [address] [place] [address] Consulting Physician Ophthalmology 04/07/21 Audie Escalera MD [address] [facility] [address] [place] [address] Surgeon Orthopedic Surgery 11/07/22 Robinson Iyer MD [address] [place] [address] [address] L[address] [place] [address] [place] [address] Consulting Physician General Surgery 11/07/22 documented as of this encounter
--- OUTSIDE RECORDS SUMMARY | 2024-08-09 12:37 | XMS_ITS | Encounter Summary ---
Author Organization [facility] Address [address] [place] [address] Phone Care Team Providers Care Seaman Officer Name Role Phone Wilian Belle MD Primary Care Provider [phone] Luisito Conrad MD Unavailable [phone] Kevin Hoang MD Primary Care Provider [phone] Kalee Morelos CMA Unavailable [phone] Kevin Hoang MD Primary Care Provider [phone] Audie Escalera MD Unavailable [phone] Robinson Iyer MD Unavailable Encounter Details Date Type Department Care Team (Latest Contact Info) Description 11/06/2017 Orders Only [facility] Scanning, Provider Social History Tobacco Use Types Packs/Day Years Used Date Smoking Tobacco: Never Assessed Comments Unknown Sex and Gender Information Value Date Recorded Sex Assigned at Not on file 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 Gender Identity Not on file Sexual Orientation Not on file documented as of this encounter Plan of Treatment Not on file documented as of this encounter Procedures Procedure Name Priority Date/Time Associated Diagnosis Comments CARDIOLOGY DOCUMENT SCAN 11/06/2017 documented in this encounter Results * SCAN - CARDIOLOGY (11/06/2017) Anatomical Region Laterality Modality Other us Provider Scanning CV CARDIAC SERVICES PROCEDURES Final Result documented in this encounter Visit Diagnoses Not on filedocumented in this encounter Additional Health Concerns Infection Onset Date Last Indicated Resolved Time COVID: Suspected 05/10/2021 05/10/2021 05/10/2021 4:19 PM ASSOCIATE PROFESSOR OF RADIOLOGY documented as of this encounter Care Teams Seaman Officer Relationship Specialty Start Date End Date Wilian Belle MD PCP - General Family Medicine 07/27/18 04/06/21 Kevin Hoang MD [address] [place] [address] PCP - General Family Medicine 04/07/21 07/24/22 Kevin Hoang MD 2 [facility] [address] [place], [place] [id number] PCP - General Family Medicine 07/25/22 Luisito Conrad MD [address] [place] [address] Consulting Physician Ophthalmology 04/07/21 Kalee Morelos, [address] [place] [address] ACO Care Pre Press Proofer 09/27/21 09/27/21 Audie Escalera MD [address] [facility] [address] GRISELDA Lenz [facility] [address] [place] [address] Surgeon Orthopedic Surgery 11/07/22 Robinson Iyer MD [address] [place] [address] DR GRISELDA Lenz [address] [address] Consulting Physician General Surgery 11/07/22 documented as of this encounter
--- OUTSIDE RECORDS SUMMARY | 2024-08-09 12:37 | XMS_ITS | Encounter Summary ---
Author Organization [facility] Healthcare Address [address] [place] [address] Care Team Providers Care Punch Machine Hand Name Role Phone Luisito Conrad MD Unavailable [phone] Kevin Hoang MD Primary Care Provider Audie Escalera MD Unavailable Robinson Iyer MD Unavailable Reason for Visit * Reason Onset Date Comments Medical Question/Miscellaneous 07/24/2024 Encounter Details Date Type Department Care Team (Late st Contact Info) Description 07/24/2024 Telephone [facility] Primary Care at [place] [id number] [place] [address] Kevin Hoang MD [address] [place] [address] [address] [place] [address] Medical Question/Miscellaneous Social History Tobacco [...] on file Legal Sex Female 3:37 AM HUMAN RESOURCES PROJECT MANAGER Gender Identity Not on file Sexual Orientation Not on file 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 Yes-FYI Only N RESOURCES PROJECT MANAGER documented in this encounter Plan of Treatment Not on file documented as of this encounter Visit Diagnoses Not on filedocumented in this encounter Care Teams Punch Machine Hand Relationship Specialty Start Date End Date Kevin Hoang MD [address] [place] [address] [place], [place] [address] PCP - General Family Medicine 07/25/22 Luisito Conrad MD [address] [place] [address] Consulting Physician Ophthalmology 04/07/21 Audie Escalera MD [address] [facility] [address] [place] [address] Surgeon Orthopedic Surgery 11/07/22 Robinson Iyer MD [address] [facility] [address] [place] [address] Consulting Physician General Surgery 11/07/22 documented as of this encounter
--- OUTSIDE RECORDS SUMMARY | 2024-08-09 12:37 | XMS_ITS | Continuity of Care Document ---
Author Organization [facility] Address [address] [place] [address] Phone Care Team Providers Care Care Services Manager Name Role Phone Reymundo Koroma MD Unavailable Unavailable Allergies, Adverse Reactions, Alerts Substance Reaction Status Criticality venom-honey bee Active No Informati on codeine Active No Information Medications Medication Instructions Dosage Effective Dates (start - stop) Status Comments citalopram 40 mg tablet take 1 tablet (40MG) by oral route every day 40 MG - Active Celebrex 200 mg capsule take 1 capsule (200MG) by oral route 2 times every day as needed 200 MG - Active verapamil ER (PM) 100 mg capsule 24hr pellet CT,ext.release take 1 capsule (100MG) by oral route every day at bedtime 100 MG - Active paroxetine 10 mg/5 mL oral suspension take 10 milliliter (20MG) by oral route every day 20 MG - Active lisinopril 5 mg tablet take 1 tablet (5MG) by oral route every day 5 MG - Active Co Q-10 100 mg-5 unit capsule - Active OSTEO BI-FLEX BUCCAL ADH. PATCH - Active Caltrate 600 600 mg (1,500 mg) tablet take 1 Capsule by Oral route every day - Active Advance Directives Directive Yes / No Effective Date File Name No Information Encounters Encounter Description Practice Location Reason(s) For Visit Diagnoses Date Provider Providers Copied on Encounter [facility], [address] [place], [place], [id number], [place] tel:[phone] [place] No Information [address] Ga Dwyer. [address] [place], [place], [id number], [place]. 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 4 No Information Family History Family Member Type Diagnosis Age At Onset Multiple Problem (finding) Arthritis Sister Problem (finding) glaucoma Multiple Problem (finding) cataract Multiple Problem (finding) HBP Multiple Problem (finding) Diabetes mellitus Sister Problem (finding) degenerative disorder o f macula Payers Payer name Insurance type Covered democrat ID Authoriza tion(s) No Information Social History Type Description Quantity Date Captured Comments Sex Female Smoking Status No Information Chief Complaint And Reason For Visit No Information Reason For Referral Reason For Referral No Information History Of Present Illness Encounter Date Complaint History Of Prese nt Illness No Information Functional Status Date Functional Assessmen t No Information Instructions Date Instruction 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 VA stable. Last injection was >1 year ago. 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 VA stable. Last injection was ~1 year ago. 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
[2024-08-09 13:23] LABS: Alveolar/Arterial O2 Gradient 19.7 mmHg; Base Excess ABG -0.8 mEq/l (+/-2.0); Carboxyhemoglobin 0.5 % THb (0-2.0); Fractional Inspired Oxygen 21 %; HCO3 ABG 20.9 mEq/l (22.0-26.0); Methemoglobin ABG 0.3 %THb (0-1.5); Oxygen Content ABG 18.3 %vol (16.0-22.0); Oxyhemoglobin 97.3 % THb (90.0-100.0); PCO2 ABG 26.9 mmHg (35.0-45.0); PO2 ABG 97.8 mmHg (80.0-100.0); PO2 FiO2 Ratio Arterial Blood 4.66 %; Reduced Hemoglobin 1.9 %THb (0-5.0); Total Hemoglobin 13.3 g/dL (12.0-18.0)
[2024-08-09 13:28] LABS: Device ROOM AIR; Modified Allen's Test Pass; pH ABG 7.508 (7.350-7.450)
--- NOTE | 2024-08-12 13:15 | WPDPFTINT ---
PFT Procedure Performed PFT Procedure Performed Spirometry with Pre/Post Bronchodilator Plethysmography (Lung Vol) Diffusing Cap (DLCO) Flow Vol Loop PFT Interpretation Lung volumes were measured with the body plethysmography method. The diminished ERV could be related to obesity. The remaining lung volumes are unremarkable. Spirometry showed normal expiratory flow rates and a normal FEV1 to FVC ratio of 83%. Following administration of a bronchodilator there was no significant increase in expiratory flow rates. Lung diffusion capacity is within the normal range. The flow-volume loop is unremarkable. Impression: Spirometry, lung volumes, and lung diffusion capacity all within the normal range.
--- NOTE | 2024-08-12 13:17 | WPDSIXMINUTE ---
Six Minute Walk Procedure Procedure Performed Pulmonary Stress Test (6 min walk) Six Minute Walk Six Minute Walk: This 6 minute walk test was conducted with the patient breathing ambient air. The baseline pre-walk oxyhemoglobin saturation was 99%. The patient walked 366 m with no stops during testing. During the walk the oxyhemoglobin saturation remained in the range of 96% to 97%. Impression: No evidence of oxyhemoglobin desaturation on this testing.
== END 2024-08-09 12:33 | disposition home or self-care (01) ==
PROVIDERS: PCP Family Medicine; Visit Provider Internal Medicine Pulmonary Disease
DX: J44.9 Chronic obstructive pulmonary disease, unspecified (principal)
CPT/HCPCS: 36600; 82375; 82805; 83050; 85018

== ENCOUNTER 2024-09-17 08:56 | Outpatient (CLI) | payer MEDICARE, SELFPAY ==
--- NOTE | ~2024-09-17 | XR_ITS ---
EXAMINATION: XR UGIAC w barium swallow DATE: 09/17/2024 10:00 INDICATION: Diaphragmatic hernia without obstruction TECHNIQUE: The patient drank thick barium, gas-producing crystals, and thin barium. A total of 1463 f luoroscopic images of the esophagus, stomach, and proximal small bowel were obtained. Fluoroscopy exp osure time was 2.6 minutes. Total DAP was 15.7 Gycm^2 COMPARISON: CT dated 09/05/2023 FINDINGS: The esophagus is normal without mass or stricture. Esophageal motility is normal. There is a large sliding-type hiatal hernia which involves the majority of the stomach with the gastric antrum and pylorus remaining below the level of the diaphragm. The gastroesophageal junction is positioned approximately 5 cm cephalad into the right of the thoracic hiatus. The apex of the body the herniated stomach is positioned 13 cm above level of the thoracic hiatus. There was no gastroesophageal reflux with provocative maneuvers. The stomach is otherwise normal. The proximal small bowel is normal. IMPRESSION: 1. Large sliding-type hiatal hernia without evidence of gastroesophageal reflux with provocative maricel uvers. Reviewed, dictated and finalized at location A. IMPRESSION: 1. Large sliding-type hiatal hernia without evidence of gastroesophageal reflux with provocative maneuvers.
--- OUTSIDE RECORDS SUMMARY | 2024-09-17 09:23 | XMS_ITS | Continuity of Care Document ---
Author Organization [facility] Address [address] [place] [address] Phone Care Team Providers Care Cooker Pie Filling Name Role Phone Reymundo Koroma MD Unavailable [...] Providers Copied on Encounter [facility], [address] [place], [place], [id number], [place] tel:[phone] [place] No Information [address] Ga Dwyer. [address] [place], [place], [id number], [place]. tel:[phone] [facility], [address] [place], [place], [id number], tel:[phone] [place] Exudative Macular DegenMacular Scars NecHorseshoe Tear Of RetinaBlind Hypotensive Eye 4 No Information [facility], [address] [place], [place], [id number], tel:[phone] Conversion Location RCA Exudative Macular DegenMacular Scars NecHorseshoe Tear Of RetinaBlind Hypotensive Eye 4 No Information Family History Family Member Type Diagnosis Age At Onset Multiple Problem (finding) Arthritis Sister Problem (finding) glaucoma Multiple Problem (finding) cataract Multiple Problem (finding) HBP Multiple Problem (finding) Diabetes mellitus Sister Problem (finding) degenerative disorder o f macula Payers Payer name Insurance type Covered green party ID Authoriza tion(s) No Information Social History [...]
--- OUTSIDE RECORDS SUMMARY | 2024-09-17 09:23 | XMS_ITS | Encounter Summary ---
Author Organization [facility] Healthcare Address [address] [place] [address] Care Team Providers Care Preform Machine Operator Name Role Phone Luisito Conrad MD Unavailable [phone] Kevin Hoang MD Primary Care Provider Audie Escalera MD Unavailable Robinson Iyer MD Unavailable Encounter Details Date Type Department Care Team (Late st Contact Info) Description 12/05/2022 Telephone [facility] [address] [place] [address] Coreen Gonzalez RN Social History Tobacco Use [...] on file Legal Sex Female 3:37 AM OPERATOR CONTROL ROOM Gender Identity Not on file Sexual Orientation Not on file 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 Not on file Not on file documented as of this encounter Plan of Treatment Not on file documented as of this encounter Visit Diagnoses Not on filedocumented in this encounter Care Teams Preform Machine Operator Relationship Specialty Start Date End Date Kevin Hoang MD [address] [facility] [address] [place] [address] PCP - General Family Medicine 07/25/22 Luisito Conrad MD [address] [place] [address] Consulting Physician Ophthalmology 04/07/21 Audie Escalera MD [address] [facility] [address] [place] [address] Surgeon Orthopedic Surgery 11/07/22 Robinson Iyer MD [address] [place] [address] [address] L[address] [place] [address] [place] [address] Consulting Physician General Surgery 11/07/22 documented as of this encounter
--- OUTSIDE RECORDS SUMMARY | 2024-09-17 09:23 | XMS_ITS | Encounter Summary ---
Author Organization [facility] Address [address] [place] [address] Phone Care Team Providers Care Recovery Room Rn Name Role Phone Wilian Belle MD Primary Care Provider [phone] Luisito Conrad MD Unavailable [phone] Kevin Hoang MD Primary Care Provider Kalee Morelos CMA Unavailable [phone] Kevin Hoang MD Primary Care Provider [phone] Audie Escalera MD Unavailable [phone] Robinson Iyer MD Unavailable Encounter Details Date Type Department Care Team (Latest Contact Info) Description 11/06/2017 Orders Only [facility] Scanning, Provider Social History Tobacco Use Types Packs/Day Years Used Date Smoking Tobacco: Never Assessed Comments Unknown Sex and Gender Information Value Date Recorded Sex Assigned at Not on file Legal Sex Female 3:37 AM LOTUS NOTES DEVELOPER Gender Identity Not on file Sexual Orientation [...] COVID: Suspected 05/10/2021 05/10/2021 05/10/2021 4:19 PM LOTUS NOTES DEVELOPER documented as of this encounter Care Teams Recovery Room Rn Relationship Specialty Start Date End Date Wilian Belle MD PCP - General Family Medicine 07/27/18 04/06/21 Kevin Hoang MD [address] [place] [address] PCP - General Family Medicine 04/07/21 07/24/22 Kevin Hoang MD 2 [facility] [address] [place], [place] [address] PCP - General Family Medicine 07/25/22 Luisito Conrad MD [address] [place] [address] Consulting Physician Ophthalmology 04/07/21 Kalee Morelos, [address] [place] [address] ACO Care Standpipe Tender 09/27/21 09/27/21 Audie Escalera MD [address] [facility] [address] GRISELDA Lenz [facility] [address] [place] [address] Surgeon Orthopedic Surgery 11/07/22 Robinson Iyer MD [address] [place] [address] [address] GRISELDA Lenz [address] [address] Consulting Physician General Surgery 11/07/22 documented as of this encounter
--- OUTSIDE RECORDS SUMMARY | 2024-09-17 09:24 | XMS_ITS | Referral Summary ---
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 Name Role Phone Luisito Conrad MD Unavailable [phone] Kevin Hoang MD Primary Care Provider Audie Escalera MD Unavailable [phone] Robinson Iyer MD Unavailable Encounters Date Type Department Care Team Description 08/27/2024 2:14 PM CDT - 08/27/2024 11:59 PM CDT Hospital Encounter [address] [address] Ventral hernia without obstruction or gangrene Discharge Disposition: Discharge to home or self care 08/26/[address] [address] Kassandra Jo 08/23/2024 Telephone [facility] Primary Care at [address] [phone] Kevin Hoang MD Medical Question/Miscellaneou s 08/19/2024 10:00 AM EYEDOTTER Office Visit [facility] Orthopedic and Sports Medicine [address] [place] [phone] Luis Mancini PA Primary osteoarthritis of both knees (Primary Dx) 08/14/2024 Telephone [facility] Orthopedics and Sports Medicine [address] [place] [address] [address] [place] [phone] Audie Escalera MD 08/13/2024 Orders Only [facility] Primary Care at [address] [phone] Kevin Hoang MD Hiatal hernia (Primary Dx) 08/12/2024 Telephone [facility] Primary Care at [address] [phone] Kevin Hoang MD Recommendation Request 08/12/2024 Telephone [facility] [address] [place] [address] [address] [place] [phone] Brigitte Yoon MA 07/30/2024 10:20 AM EYEDOTTER Office Visit [address] [place] [phone] Robinson Iyer MD Ventral hernia without obstruction or gangrene 07/24/2024 Telephone [facility] Primary Care at [address] [phone] Kevin Hoang MD Medical Question/Miscellaneou s 07/23/2024 11:30 AM EYEDOTTER Office Visit [facility] Primary Care at [address] [phone] Laya Ramirez NP Ventral hernia without obstruction or gangrene (Primary Dx); Primary osteoarthritis of both knees; Mild episode of recurrent major depressive disorder; Slow transit constipation 07/22/2024 Telephone [facility] Primary Care at [address] [phone] Kevin Hoang MD Medical Question/Miscellaneou s 07/08/2024 Telephone [facility] Primary Care at [address] [phone] Cate Fernandez MA 07/03/2024 10:50 AM EYEDOTTER - 07/03/2024 11:59 PM EYEDOTTER Hospital Encounter [address] [address] COPD with acute exacerbation (HCC); Shortness of breath Discharge Disposition: Discharge to home or self care 07/03/2024 Telephone [facility] Primary Care at [address] [phone] Kevin Hoang MD Hernia Question ; Medical Question/Miscellaneou s 07/03/2024 11:00 AM EYEDOTTER Lab [facility] Outpatient Lab at [address] [phone] COPD (chronic obstructive pulmonary disease) (HCC) (Primary Dx) 07/03/2024 11:00 AM EYEDOTTER Ancillary Procedure [facility] Imaging at [address] [phone] COPD with acute exacerbation (HCC) 07/03/2024 10:15 AM EYEDOTTER Office Visit [facility] Primary Care at [address] [phone] Kevin Hoang MD COPD with acute exacerbation (HCC) (Primary Dx); Shortness of breath; Hiatal hernia 07/02/2024 Nurse Triage [facility] Primary Care at [address] [phone] Kevin Hoang MD from Last 3 Months Allergies Active Allergy Reactions Criticality Noted Date Comments Codeine Other (See comments) Low Patient states it makes her hyper Sulfites Joint pain Low 07/05/2022 Medications coenzyme Q10 100 mg capsule Take 1 capsule (100 mg total) by mouth daily Active EPINEPHrine 0.3 mg/0.3 mL auto-injection syringeIndicati ons:Anaphylaxis ,patient at risk of anaphylaxis Inject 0.3 mL (0.3 mg total) into the muscle as instructed as needed for anaphylaxis Call 911 after use. 2 each 2 10/01/19 23 Active naloxone (NARCAN) 4 mg/actuation spray,non-aeros olIndications:O pioid Toxicity,risk mitigation for opioid overdose Administer 1 spray into affected nostril(s) as needed for opioid reversal or respiratory depression Call 911. Administer a single spray in one nostril. Repeat every 3 minutes as needed if no or minimal response. 2 each 03/27/20 23 Active albuterol HFA (PROVENTIL HFA,VENTOLIN HFA,PROAIR HFA) 90 mcg/actuation inhaler INHALE 2 PUFFS BY MOUTH EVERY 4 HOURS NEEDED FOR WHEEZE OR SHORTNESS OF BREATH 8.5 each 2 04/08/20 23 Active docusate sodium (COLACE) 100 mg capsule TAKE 1 CAPSULE BY MOUTH TWICE A DAY 60 capsule 2 07/07/19 24 Active verapamiL (CALAN) 120 mg tablet Take 1 tablet (120 mg total) by mouth 2 (two) times a day 08/08/19 24 Active APPLE CIDER VINEGAR ORAL Take by mouth Act raiza NON FORMULARY, FOR CLINIC ADMINISTERED MEDICATIONS ONLY, (not in database) 1 each once Super Beets Active vit A/vit C/vit E/zinc/copper (PRESERVISION AREDS ORAL) Take by mouth Acti ve fluticasone-ume clidin-vilanter (Trelegy Ellipta) 200-62.5-25 mcg inhaler Inhale 1 puff daily 30 each 11 01/31/20 24 Active neomycin-polymy jaden B-dexAMETHasone (MAXITROL) 3.5 mg/g-10,000 unit/g-0.1 % ointment APPLY 0.25 INCH LEFT EYE NEEDED 3.5 g 3 02/23/20 24 Active cromolyn (OPTICROM) 4 % ophthalmic solution INSTILL 1 DROP INTO LEFT EYE ONCE A DAY 10 mL 3 02/23/20 24 Active metFORMIN XR (GLUCOPHAGE XR) 500 mg 24 hr tablet Take 1 tablet (500 mg total) by mouth daily with breakfast 90 tablet 3 05/23/20 24 025 Active ALPRAZolam (XANAX) 0.25 mg tablet Take 1 tablet (0.25 mg total) by mouth 3 (three) times a day as needed for anxiety or sleep 60 tablet 1 05/30/20 24 Active meclizine (ANTIVERT) 12.5 mg tablet TAKE 1 TABLET BY MOUTH 3 TIMES A DAY NEEDED FOR DIZZINESS. 30 tablet 1 06/25/19 25 Active montelukast (SINGULAIR) 10 mg tablet Take 1 tablet (10 mg total) by mouth nightly Active collagen/biotin /ascorbic acid (COLLAGEN 1500 PLUS C ORAL) Take by mouth Act raiza UNABLE TO FIND Med Name: genious mushroom Active cyanocobalamin, vitamin B-12, (VITAMIN B-12 ORAL) Take by mouth Active sertraline (ZOLOFT) 50 mg tabletIndicatio ns:Recurrent major depressive disorder, in partial remission TAKE 1 TABLET BY MOUTH TWICE A DAY 200 tablet 1 08/18/19 25 Active atorvastatin (LIPITOR) 20 mg tablet TAKE 1 TABLET BY MOUTH EVERY DAY 100 tablet 1 08/18/19 25 Active lansoprazole (PREVACID) 30 mg capsule TAKE 1 CAPSULE BY MOUTH EVERY DAY 90 capsule 1 08/29/19 25 Active amitriptyline (ELAVIL) 10 mg tabletIndicatio ns:Idiopathic peripheral neuropathy TAKE 1 TABLET BY MOUTH EVERY DAY AT NIGHT 100 tablet 1 09/05/19 25 Active lisinopril-hydr oCHLOROthiazide (ZESTORETIC) 20-12.5 mg per tablet TAKE 1 TABLET BY MOUTH TWICE A DAY 200 tablet 1 09/07/19 25 Active fluticasone propionate (FLONASE) 50 mcg/actuation nasal spray SPRAY 1 SPRAY INTO EACH NOSTRIL EVERY DAY 48 mL 1 09/14/19 25 Active azelastine (ASTELIN) 137 mcg (0.1 %) nasal sprayIndication s:Seasonal allergic rhinitis due to pollen ADMINISTER 2 SPRAYS INTO EACH NOSTRIL 2 (TWO) TIMES A DAY USE IN EACH NOSTRIL DIRECTED 180 mL 1 09/14/19 25 025 Active famotidine (PEPCID) 40 mg tabletIndicatio ns:Laryngeal spasm TAKE 1 TABLET BY MOUTH EVERY DAY AT NIGHT 90 tablet 09/14/19 25 Active lisinopril-hydr oCHLOROthiazide (ZESTORETIC) 20-12.5 mg per tablet Take 1 tablet by mouth 2 (two) times a day 180 tablet 3 11/07/19 24 025 Discontinued fluticasone propionate (FLONASE) 50 mcg/actuation nasal spray Administer 1 spray into each nostril daily 3 each 1 01/10/20 24 025 Discontinued amitriptyline (ELAVIL) 10 mg tabletIndicatio ns:Idiopathic peripheral neuropathy TAKE 1 TABLET BY MOUTH EVERY DAY AT NIGHT 90 tablet 1 04/15/20 24 025 Discontinued lansoprazole (PREVACID) 30 mg capsule Take 1 capsule (30 mg total) by mouth daily 30 capsule 3 05/30/20 24 025 Discontinued azelastine (ASTELIN) 137 mcg (0.1 %) nasal sprayIndication s:Seasonal allergic rhinitis due to pollen ADMINISTER 2 SPRAYS INTO EACH NOSTRIL 2 (TWO) TIMES A DAY USE IN EACH NOSTRIL DIRECTED 30 mL 2 06/16/20 24 025 Discontinued famotidine (PEPCID) 40 mg tabletIndicatio ns:Laryngeal spasm TAKE 1 TABLET BY MOUTH EVERY DAY AT NIGHT 90 tablet 06/25/19 25 025 Discontinued Hospital, Clinic, or Other Facility Administered Medication Ordered Dose Route Frequency Start Date End Date Status lidocaine (XYLOCAINE) 20 mg/mL (2 %) injection 3 mLIndications:Admini stration of Local Anesthesia 3 mL One-Time Injection 08/19/2024 5 Ended lidocaine (XYLOCAINE) 20 mg/mL (2 %) injection 3 mLIndications:Admini stration of Local Anesthesia 3 mL One-Time Injection 08/19/2024 5 Ended methylPREDNISolone acetate (DEPO-medrol) injection 80 mgIndications:Primar y osteoarthritis of both knees 80 mg intra-artic One-Time Injection 08/19/2024 5 Ended methylPREDNISolone acetate (DEPO-medrol) injection 80 mgIndications:Primar y osteoarthritis of both knees 80 mg intra-artic One-Time Injection 08/19/2024 5 Ended Active Problems Problem Noted Date Diagnosed Date Primary osteoarthritis of both knees 07/23/2024 Slow transit constipation 07/23/2024 Annual physical exam 05/22/2024 Assessment & Plan (05/22/2024 11:47 AM EYEDOTTER): -Recommended: Healthy diet. Avoiding junk food/fast food. [...] 06/01/2023 Assessment & Plan (05/22/2024 11:46 AM EYEDOTTER): Stable on current medication. Continue sertraline 100mg as ordered. May follow up in 6 months Also uses amitriptyline 10mg at bedtime for sleep Memory loss 11/11/2022 Class 2 severe obesity due t o excess calories with serious comorbidity and body mass index (BMI) of 36.0 to 36.9 in adult 01/07/2022 Assessment & Plan (05/24/2024 10:39 PM EYEDOTTER): BMI Follow-up includes: exercise counseling. Assessment & Plan (11/15/2023 10:35 AM CDT): BMI Follow-up includes: nutrition counseling, exercise counseling, and education provided. Assessment & Plan (05/10/2023 10:58 AM EYEDOTTER): BMI Follow-up includes: nutrition counseling, exercise counseling, [...] 08/19/2021 Assessment & Plan (07/30/2024 10:54 AM EYEDOTTER): I do not fully appreciate any fascial [...] plan. Assessment & Plan (07/23/2024 11:48 AM EYEDOTTER): Not having pain, but it's inhibiting movement [...] week) Assessment & Plan (08/19/2021 1:46 PM EYEDOTTER): The patient has multiple fascial defects along [...] completion. Assessment & Plan (08/19/2021 1:48 PM EYEDOTTER): Outside of the shortness of breath, which [...] 04/28/2021 Assessment & Plan (04/28/2021 10:08 AM EYEDOTTER): I'm not convinced serious injury; we will treat conservatively for a week, with ibuprofen 600-800 mg every 8 hours as needed, ice and heat to the tender area 3- 4 times a day, 20 min's per. Xray will be held in abeyance unless not improving through the week. Let us know Allergic rhinitis 04/07/2021 Assessment & Plan (08/10/2022 11:34 AM EYEDOTTER): Nasal saline spray (Simply saline, Little Remedies, Mercer, Ryegate) 2 second sprays or 2 squeezes into [...] 10/16/2020 Assessment & Plan (05/22/2024 11:45 AM EYEDOTTER): Stable/ Improved. Blood pressure is adequately controlled on lisinopril (Prinivil) and hydrochlorothiazide, verapamil . We will not make any medication changes today. Will have her follow-up in 6 months for continued monitoring and management Assessment & Plan (05/12/2023 2:28 PM EYEDOTTER): Continuing verapamil, lisinopril-hct Labs ordered for next visit Discussed herbals. Might look into turmeric, krill oil with hyaluronic acid (e.g Solomon-Red), collagen joint supplement Continue good exercise practice, but don't push too far beyond tolerance. 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 Pharmacotherapy as ordered.- atorvastatin Lipids will be reassessed in 6 months. Idiopathic peripheral neuropathy COPD (chronic obstructive pulmonary disease) Assessment & Plan (05/24/2024 10:40 PM EYEDOTTER): Changing bean snipper. Due to proximity Assessment & Plan (12/12/2023 [...] 05/22/2024 Assessment & Plan (08/11/2022 12:49 PM EYEDOTTER): Pepcid 40 mg at bedtime Chronic maxillary sinusitis 07/05/2022 05/22/2024 Assessment & Plan (07/05/2022 12:05 PM EYEDOTTER): Nasal saline spray (Simply saline, Little Remedies, Mercer, Ryegate) 2 second sprays or 2 squeezes into [...] (08/24/2021): Added automatically from request for surgery [id number] Assessment & Plan (10/07/2021 10:53 AM CDT): [...] on echocardiogram, I do not see a RHC Weight loss and increase exercise Immunizations Immunization [...] on file Legal Sex Female 3:37 AM EYEDOTTER Gender Identity Not on file Sexual Orientation Not on file 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 Job 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 Not on file Not on file Not on file Last Filed Vital Signs Vital Sign Reading Time Taken Comments Blood Pressure 137/83 08/19/2024 10:02 AM EYEDOTTER Pulse 69 08/19/2024 10:02 AM EYEDOTTER Temperature 36.1 C (96.9 F) 07/30/2024 10:08 AM EYEDOTTER Respiratory Rate 18 07/23/2024 11:33 AM EYEDOTTER Oxygen Saturation 96% 07/30/2024 10:08 AM EYEDOTTER Inhaled Oxygen Concentration - - Weight 105.7 kg (233 lb) 08/19/2024 10:02 AM EYEDOTTER Height 172.7 cm (5' 8 ) 08/19/2024 10:02 AM EYEDOTTER Body Mass Index 35.43 08/19/2024 10:02 AM EYEDOTTER Plan of Treatment Not on file Medical Devices Implanted Type Area Line Lead Device Identifier Shelf Expiration Date Model / Serial / Lot [id number] Phasix St Mesh With Echo 2 Positioning System 25cm X 33cm Implanted:Qty: 1 on 09/20/2021 by Robinson Iyer MD at [facility] N/A: Abdomen [employer] 11/13/2022 [id number] / / [id number] Procedures Procedure Name Priority Date/Time Associated Diagnosis Comments CT ABDOMEN PELVIS W CONTRAST Schedule Routine, Read Routine (OP Routine) 08/27/2024 3:00 PM CDT Ventral hernia without obstruction or gangrene CA ARTHROCENTESIS ASPIR&/INJ MAJOR JT/BURSA W/O US Routine 08/19/2024 10:00 AM EYEDOTTER Primary osteoarthritis of both knees XR CHEST PA LATERAL 2 VIEWS Schedule Routine, Read Routine (OP Routine) 07/03/2024 11:10 AM EYEDOTTER COPD with acute exacerbation (HCC) EGFR Routine 07/03/2024 10:57 AM EYEDOTTER COPD with acute exacerbation (HCC) Shortness of breath DIFFERENTIAL AUTO Routine 07/03/2024 10:57 AM EYEDOTTER COPD with acute exacerbation (HCC) Shortness of breath PRO B-TYPE NATRIURETIC PEPTIDE Routine 07/03/2024 10:57 AM EYEDOTTER COPD with acute exacerbation (HCC) Shortness of breath COMPREHENSIVE METABOLIC PANEL Routine 07/03/2024 10:57 AM EYEDOTTER COPD with acute exacerbation (HCC) Shortness of breath CBC WITH AUTO DIFFERENTIAL Routine 07/03/2024 10:57 AM EYEDOTTER COPD with acute exacerbation (HCC) Shortness of breath MAMMOGRAPHY Routine 12/25/2023 3:13 PM CDT DEXA AXIAL SKELETON BONE DENSITY 1 OR MORE SITES Schedule Routine, Read Routine (OP Routine) 05/11/2021 4:07 PM EYEDOTTER Screening for osteoporosis manager long term care (current) use of inhaled steroids HEPATITIS C ANTIBODY Routine 04/07/2021 12:00 PM CDT Encounter for hepatitis C screening test for low risk patient COLONOSCOPY Routine 05/24/2016 from Last 3 Months or Most Recently Relevant to Health Maintenance Results * CT Abdomen Pelvis W Contrast (08/27/2024 3:00 PM CDT) Anatomical Region Laterality Modality Body N/A Computed Tomogra phy 08/31/2024 1:44 PM CDT Narrative 08/31/2024 1:50 PM CDT EXAM DESCRIPTION: CT ABDOMEN PELVIS W CONTRAST REASON FOR STUDY: Abdominal wall hernia? Abdominal wall hernia w/o obstruction Surgery: hysterectomy, partial splenectomy, hernia repair TECHNIQUE: CT scan of the abdomen and pelvis performed with intravenous and without oral contrast using helical scanning technique with dynamic intravenous contrast injection. Reconstructed coronal and sagittal MPR images reviewed. All images stored on PACS. Automated exposure control was used as a dose optimization technique for this examination. CONTRAST TYPE/DOSE: 100mL of IOVERSOL 350 MG IODINE/ML INTRAVENOUS SYRINGE injected via intravenous COMPARISON: 07/28/2021 FINDINGS: LOWER CHEST: There is volume loss within the right lower lobe adjacent to the patient's large hiatal hernia. LIVER: The liver is normal in size. A 10 mm hypoattenuating lesion within the inferior right hemiliver likely represents a cyst (50). GALLBLADDER: Partially distended. BILE DUCTS: No intrahepatic or extrahepatic ductal dilatation. SPLEEN: Absent PANCREAS: No significant peripancreatic stranding or main ductal dilatation. Nodule along the tip of the spleen is unchanged and likely represents a splenule (21). ADRENALS: Normal. KIDNEYS/URINARY TRACT: Normal in size. Symmetric in enhancement. No hydronephrosis. Right renal cyst. Urinary bladder is partially distended. GI: Partially imaged is a large hiatal hernia. There is indeterminate thickening of the posterior aspect of the hernia or distal esophagus which appears to be increased compared to the prior examination. The hernia itself is increased in size compared to 2021. The gastric outlet is in appropriate position. The colon is nondilated without wall thickening or evidence of obstruction. The appendix is nondilated. The small bowel is nondilated without evidence of a small bowel obstruction. PERITONEUM: Laxity of the anterior abdominal wall with rectus diastasis and fat containing umbilical hernia with largest component measuring approximately 6.8 x 3.7 cm. More inferiorly is a complex ventral abdominal hernia containing nondilated loops of small bowel and fat measuring approximately 10.1 x 6.1 cm. No free air. No ascites. No mesenteric lymphadenopathy. RETROPERITONEUM: No retroperitoneal or inguinal lymphadenopathy. REPRODUCTIVE: No significant abnormality. VASCULATURE: Portal vein is patent. The aorta is normal in caliber MUSCULOSKELETAL: No significant abnormality. OTHER: No other abnormality. IMPRESSION: 1. Large ventral abdominal hernia containing fat and nondilated loops of small bowel. Additional fat containing ventral abdominal hernia is seen superior. 2. Partially imaged large hiatal hernia with indeterminate thickening of the visualized posterior aspect. This appears to be increased in size compared to 202. A dedicated chest CT is recommended for further evaluation. 3. Additional findings as above. THIS IS AN ELECTRONICALLY VERIFIED FINAL REPORT 08/31/2024 1:50 PM - Electronically signed by Audie Coemr M.D. AG: ANNA Report ID: [id number] Reading Location: [id number] Procedure Note Audie Comer MD - 08/31/2024 EXAM DESCRIPTION: CT ABDOMEN PELVIS W CONTRAST REASON FOR STUDY: Abdominal wall hernia? Abdominal wall hernia w/o obstruction Surgery: hysterectomy, partial splenectomy, hernia repair TECHNIQUE: CT scan of the abdomen and pelvis performed with intravenousand without oral contrast using helical scanning technique with dynamic intravenous contrast injection. Reconstructed coronal and sagittal MPRimages reviewed. All images stored on PACS. Automated exposure control was usedas a dose optimization technique for this examination. CONTRAST TYPE/DOSE: 100mL of IOVERSOL 350 MG IODINE/ML INTRAVENOUSSYRINGE injected via intravenous COMPARISON: 07/28/2021 FINDINGS: LOWER CHEST: There is volume loss within the right lower lobe adjacentto the patient's large hiatal hernia. LIVER: The liver is normal in size. A 10 mm hypoattenuating lesionwithin the inferior right hemiliver likely represents a cyst (50). GALLBLADDER: Partially distended. BILE DUCTS: No intrahepatic or extrahepatic ductal dilatation. SPLEEN: Absent PANCREAS: No significant peripancreatic stranding or main ductaldilatation. Nodule along the tip of the spleen is unchanged and likely represents a splenule (21). ADRENALS: Normal. KIDNEYS/URINARY TRACT: Normal in size. Symmetric in enhancement. No hydronephrosis. Right renal cyst. Urinary bladder is partiallydistended. GI: Partially imaged is a large hiatal hernia. There is indeterminate thickening of the posterior aspect of the hernia or distal esophagus which appears to be increased compared to the prior examination. The herniaitself is increased in size compared to 2022. The gastric outlet is inappropriate position. The colon is nondilated without wall thickening or evidence of obstruction. The appendix is nondilated. The small bowel is nondilated without evidence of a small bowel obstruction. PERITONEUM: Laxity of the anterior abdominal wall with rectus diastasisand fat containing umbilical hernia with largest component measuringapproximately 6.8 x 3.7 cm. More inferiorly is a complex ventral abdominal hernia containing nondilated loops of small bowel and fat measuring approximately 10.1 x 6.1 cm. No free air. No ascites. No mesenteric lymphadenopathy. RETROPERITONEUM: No retroperitoneal or inguinal lymphadenopathy. REPRODUCTIVE: No significant abnormality. VASCULATURE: Portal vein is patent. The aorta is normal in caliber MUSCULOSKELETAL: No significant abnormality. OTHER: No other abnormality. IMPRESSION: 1. Large ventral abdominal hernia containing fat and nondilated loops of small bowel. Additional fat containing ventral abdominal hernia is seen superior. 2. Partially imaged large hiatal hernia with indeterminate thickening ofthe visualized posterior aspect. This appears to be increased in sizecompared to 2021. A dedicated chest CT is recommended for further evaluation. 3. Additional findings as above. THIS IS AN ELECTRONICALLY VERIFIED FINAL REPORT 08/31/2024 1:50 PM - Electronically signed by Audie Comer M.D. AG: ANNA Report ID: [id number] Reading Location: [id number] Robinson Iyer MD IMG CT PROCEDURE S Final Result * CA ARTHROCENTESIS ASPIR&/INJ MAJOR JT/BURSA W/O US (08/19/2024 10:00 AM EYEDOTTER) Narrative Luis Mancini PA - 08/19/2024 10:00 AM EYEDOTTER Luis Mancini PA 08/19/2024 10:29 AM Large Joint (Hip, Knee, Shoulder) Injection: bilateral knee Performed by: Luis Mancini PA Authorized by: Luis Mancini PA Large Joint Injection/Aspiration: Consent Given by: Patient Site marked: the procedure site was marked Verbal consent obtained: Yes Supporting Documentation: Indications: Pain Procedure Details: Location: Knee Site: Bilateral knee Needle Size: 22 G Approach: Anteromedial Ultrasound guided: No Fluroscopic guidance: No Medications Right Large Joint Injection: 80 mg methylPREDNISolone acetate 80 mg/mL; 3 mL lidocaine 20 mg/mL (2 %) Medications Left Large Joint Injection: 80 mg methylPREDNISolone acetate 80 mg/mL; 3 mL lidocaine 20 mg/mL (2 %) Patient tolerance: Patient tolerated the procedure well with no immediate complications Luis DICKERSON IN CLINIC/BEDSIDE ORDERABLE S Final Result * XR Chest PA Lateral 2 Views (07/03/2024 11:10 AM EYEDOTTER) Anatomical Region Laterality Modality Body, Chest N/A Digital Radiogra phy 07/05/2024 7:18 AM EYEDOTTER Narrative 07/05/2024 7:18 AM EYEDOTTER EXAM DESCRIPTION: XR CHEST PA LATERAL 2 [...] Joseph Colbert D.O. PS T: Report ID: [id number] Reading Location: [id number] Procedure Note Joseph Colbert, DO - 07/05/2024 [...] Joseph Colbert D.O. PS T: Report ID: [id number] Reading Location: [place] [address] Kevin Hoang MD IMG XR PROCEDURES Final Res ult * eGFR (07/03/2024 10:57 AM EYEDOTTER) eGFR 79 >=60 mL/min/1. 73 m2 Comment: [...] reviewed 2021. Blood 07/03/2024 10:5 7 AM EYEDOTTER 07/03/2024 5:35 PM EYEDOTTER Kevin Hoang MD LAB BLOOD ORDERABLES Final Result [facility] [id number] [place] [address] * Differential, auto (07/03/2024 10:57 AM EYEDOTTER) Neutrophil abs 3.1 1.5 - 6.5 K/cumm Imm gran abs 0.0 0.0 - 0.1 K/cumm [facility] Lymphocyte abs 2.4 0.8 - 3.3 K/cumm [facility] Monocyte abs 0.6 0.2 - 0.8 K/cumm [facility] Eosinophil abs 0.2 0.0 - 0.5 K/cumm [facility] Basophil abs 0.1 0.0 - 0.1 K/cumm [facility] Neutrophil pct 48.5 % [facility] Comment: Interpretive Data Percent cell count reference ranges are not reported, since discordance with absolute values may lead to misinterpretation of CBC data. Current Interpretive Data was last revised on 2017. Imm gran pct 0.2 % [facility] Comment: Interpretive Data Percent cell count reference ranges are not reported, since discordance with absolute values may lead to misinterpretation of CBC data. Current Interpretive Data was last revised on 2017. Lymphocyte pct 38.0 % [facility] Comment: Interpretive Data Percent cell count reference ranges are not reported, since discordance with absolute values may lead to misinterpretation of CBC data. Current Interpretive Data was last revised on 2017. Monocyte pct 9.5 % [facility] Comment: Interpretive Data Percent cell count reference ranges are not reported, since discordance with absolute values may lead to misinterpretation of CBC data. Current Interpretive Data was last revised on 2017. Eosinophil pct 2.7 % [facility] Comment: Interpretive Data Percent cell count reference ranges are not reported, since discordance with absolute values may lead to misinterpretation of CBC data. Current Interpretive Data was last revised on 2017. Basophil pct 1.1 % [facility] Comment: Interpretive Data Percent cell count reference ranges are not reported, since discordance with absolute values may lead to misinterpretation of CBC data. Current Interpretive Data was last revised on 2017. Blood 07/03/2024 10:5 7 AM EYEDOTTER 07/03/2024 5:26 PM EYEDOTTER us Kevin Hoang MD LAB BLOOD ORDERABLES Final Result [facility] [address] [place] [address] * Pro B-type natriuretic peptide (07/03/2024 10:57 AM EYEDOTTER) NT-proBNP 55 <=300 pg/mL Comment: Interpretive Comments: [...] as advanced age. - References: 1. Jorge JL et.al. Eur Heart J. 2006:27:330-337. 2. Tatum RW, Susu FARAH. J. AM Sue Cardiol: Cardiovasc Imag. 2009;2: 216- 225. Interpretive Data Last Revised Date: 2018. Blood 07/03/2024 10:5 7 AM EYEDOTTER 07/03/2024 5:26 PM EYEDOTTER us Kevin Hoang MD LAB BLOOD ORDERABLES Final Result [facility] [id number] Department [place] [address] * (ABNORMAL) CBC with auto differential (07/03/2024 10:57 AM EYEDOTTER) WBC 6.3 3.8 - 9.9 K/cumm Hgb 12.9 11.9 - 15.5 g/dL [facility] Hct 40.6 35.6 - 45.5 % [facility] Plt 247 150 - 400 K/cumm [facility] MPV 11.2 9.1 - 12.3 fL [facility] RBC 4.15 3.90 - 5.20 M/cumm [facility] MCV 97.8(H) 81.3 - 96.4 fL [facility] MCH 31.1 27.1 - 33.3 pg [facility]ER MCHC 31.8(L) 32.3 - 35.7 g/dL [facility] RDW CV 15.5(H) 11.1 - 14.9 % [facility] RDW SD 56.0(H) 35.7 - 48.1 fL [facility] NRBC abs 0.00 0.00 - 0.01 K/cumm [facility] Blood 07/03/2024 10:5 7 AM EYEDOTTER 07/03/2024 5:26 PM EYEDOTTER us Kevin Hoang MD LAB BLOOD ORDERABLES Final Result [facility] [id number] Department [place] [address] * Comprehensive metabolic panel (07/03/2024 10:57 AM EYEDOTTER) Sodium 142 135 - 145 mmol/L Potassium, pl 3.4 3.3 - 4.9 mmol/L [facility] Chloride 106 97 - 110 mmol/L [facility] CO2 24 22 - 32 mmol/L [facility] Anion gap 12 2 - 15 mmol/L [facility] BUN 12 6 - 25 mg/dL [facility] Creatinine 0.81 0.60 - 1.10 mg/dL [facility] Glucose 95 70 - 199 mg/dL [facility] Comment: Interpretive Data Fasting glucose >/= 126 [...] [facility] Blood 07/03/2024 10:5 7 AM EYEDOTTER 07/03/2024 5:26 PM EYEDOTTER Kevin Hoang MD LAB BLOOD ORDERABLES Final Result [facility] [address] Department [place] [address] * MAMMOGRAPHY (12/25/2023 3:13 PM CDT) Historical Provider HEALTH MAINTENANCE Final Result * Dexa Axial Skeleton Bone Density 1 Or 2 Site (05/11/2021 4:07 PM EYEDOTTER) Anatomical Region Laterality Modality Body N/A Other 05/12/2021 7:06 AM EYEDOTTER Impressions 05/12/2021 7:06 AM EYEDOTTER Normal bone mineral density of the spine and left hip. Electronically signed by: Denise Vail M.D. Narrative 05/12/2021 7:06 AM EYEDOTTER Examination: Bone densitometry of the lumbar spine [...] Hepatitis C antibody (04/07/2021 12:00 PM CDT) Pathologist [facility] Hep C Ab Nonreactive Nonreactive [facility] Comment: Interpretive Data Nonreactive: Antibodies to HCV [...] MICROBIOLOGY - [place] [address] [address] [place] [address] * HM COLONOSCOPY (05/24/2016) us Historical Provider HEALTH MAINTENANCE Final Result from Last 3 Months or Most Recently Relevant to Health Maintenance Insurance [facility] MDCR HMO REF [facility] MEDICARE ADVANTAGE [facility] MEDICARE ADVANTAGE Advance Directives For more information, please contact: [phone] * Full Code (Latest Code Status on File) Date Activated Date Inactivated Comments 09/20/2021 5:38 PM 09/22/2021 9:03 PM Care Teams 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
--- OUTSIDE RECORDS SUMMARY | 2024-09-17 09:24 | XMS_ITS | Clinical Summary ---
Author Organization [facility] Address [address] [place] [address] Care Team Providers Care X Ray Equipment Tester Name Role Phone Luisito Conrad MD Unavailable [phone] Kevin Hoang MD Primary Care Provider [phone] Audie Escalera MD Unavailable Robinson Iyer MD [...] 05/22/2024 Assessment & Plan (05/22/2024 11:47 AM WORKERS COMPENSATION ATTORNEY): -Recommended: Healthy diet. Avoiding junk food/fast food. [...] 06/01/2023 Assessment & Plan (05/22/2024 11:46 AM WORKERS COMPENSATION ATTORNEY): Stable on current medication. Continue sertraline 100mg as ordered. May follow up in 6 months Also uses amitriptyline 10mg at bedtime for sleep Memory loss 11/11/2022 Class 2 severe obesity due t o excess calories with serious comorbidity and body mass index (BMI) of 36.0 to 36.9 in adult 01/07/2022 Assessment & Plan (05/24/2024 10:39 PM WORKERS COMPENSATION ATTORNEY): BMI Follow-up includes: exercise counseling. Assessment & Plan (11/15/2023 10:35 AM CDT): BMI Follow-up includes: nutrition counseling, exercise counseling, and education provided. Assessment & Plan (05/10/2023 10:58 AM WORKERS COMPENSATION ATTORNEY): BMI Follow-up includes: nutrition counseling, exercise counseling, [...] 08/19/2021 Assessment & Plan (07/30/2024 10:54 AM WORKERS COMPENSATION ATTORNEY): I do not fully appreciate any fascial [...] plan. Assessment & Plan (07/23/2024 11:48 AM WORKERS COMPENSATION ATTORNEY): Not having pain, but it's inhibiting movement [...] week) Assessment & Plan (08/19/2021 1:46 PM WORKERS COMPENSATION ATTORNEY): The patient has multiple fascial defects along [...] completion. Assessment & Plan (08/19/2021 1:48 PM WORKERS COMPENSATION ATTORNEY): Outside of the shortness of breath, which [...] 04/28/2021 Assessment & Plan (04/28/2021 10:08 AM WORKERS COMPENSATION ATTORNEY): I'm not convinced serious injury; we will treat conservatively for a week, with ibuprofen 600-800 mg every 8 hours as needed, ice and heat to the tender area 3- 4 times a day, 20 min's per. Xray will be held in abeyance unless not improving through the week. Let us know Allergic rhinitis 04/07/2021 Assessment & Plan (08/10/2022 11:34 AM WORKERS COMPENSATION ATTORNEY): Nasal saline spray (Simply saline, Little Remedies, Tornado, Shevlin) 2 second sprays or 2 squeezes into [...] 10/16/2020 Assessment & Plan (05/22/2024 11:45 AM WORKERS COMPENSATION ATTORNEY): Stable/ Improved. Blood pressure is adequately controlled on lisinopril (Prinivil) and hydrochlorothiazide, verapamil . We will not make any medication changes today. Will have her follow-up in 6 months for continued monitoring and management Assessment & Plan (05/12/2023 2:28 PM WORKERS COMPENSATION ATTORNEY): Continuing verapamil, lisinopril-hct Labs ordered for next visit Discussed herbals. Might look into turmeric, krill oil with hyaluronic acid (e.g Solomon-Red), collagen joint supplement Continue good exercise practice, but don't push too far beyond tolerance. 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 Pharmacotherapy as ordered.- atorvastatin Lipids will be reassessed in 6 months. 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 Due to proximity Assessment & Plan (12/12/2023 [...] 05/22/2024 Assessment & Plan (08/11/2022 12:49 PM WORKERS COMPENSATION ATTORNEY): Pepcid 40 mg at bedtime Chronic maxillary sinusitis 07/05/2022 05/22/2024 Assessment & Plan (07/05/2022 12:05 PM WORKERS COMPENSATION ATTORNEY): Nasal saline spray (Simply saline, Little Remedies, Tornado, Shevlin) 2 second sprays or 2 squeezes into [...] (08/24/2021): Added automatically from request for surgery [id number] Assessment & Plan (10/07/2021 10:53 AM CDT): [...] on echocardiogram, I do not see a [facility] Weight loss and increase exercise Encounters Date Type Department Care Team Description 08/27/2024 2:14 PM CDT - 08/27/2024 11:59 PM CDT Hospital Encounter [facility] [address] [place] [address] Ventral hernia without obstruction or gangrene Discharge Disposition: Discharge to home or self care 08/26/2024 Telephone [facility] [address] [place] [address] Nalep[place], September D. 08/23/2024 Telephone [facility] at [address] [phone] Kevin Hoang MD Medical Question/Miscellaneou s 08/19/2024 10:00 AM WORKERS COMPENSATION ATTORNEY Office Visit [facility] [address] [place] [phone] Luis Mancini PA Primary osteoarthritis of both knees (Primary Dx) 08/14/2024 Telephone [facility]oped[facility] and Sports Medicine [address] [place] [address] [address] [place] [address] Audie Escalera MD 08/13/2024 Orders Only [facility] at [address] [phone] Kevin Hoang MD Hiatal hernia (Primary Dx) 08/12/2024 Telephone [facility] Primary Care at [address] [phone] Kevin Hoang MD Recommendation Request 08/12/2024 Telephone [facility] [address] [place] [address] [address] [place] [phone] Brigitte Yoon MA 07/30/2024 10:20 AM WORKERS COMPENSATION ATTORNEY Office Visit [address] [place] [phone] Robinson Iyer MD Ventral hernia without obstruction or gangrene 07/24/2024 Telephone [facility] Primary Care at [address] [phone] Kevin Hoang MD Medical Question/Miscellaneou s 07/23/2024 11:30 AM WORKERS COMPENSATION ATTORNEY Office Visit [facility] at [address] [phone] Laya Ramirez NP Ventral hernia without obstruction or gangrene (Primary Dx); Primary osteoarthritis of both knees; Mild episode of recurrent major depressive disorder; Slow transit constipation 07/22/2024 Telephone [facility] Care at [address] [address] Kevin Hoang MD Medical Question/Miscellfrancia s 07/08/2024 Telephone [facility] at [address] [phone] Cate Fernandez MA 07/03/2024 11:00 AM WORKERS COMPENSATION ATTORNEY Lab [facility] Outpatient Lab at [address] [phone] COPD (chronic obstructive pulmonary disease) (HCC) (Primary Dx) 07/03/2024 11:00 AM WORKERS COMPENSATION ATTORNEY Ancillary Procedure [facility] Imaging at [address] [address] COPD with acute exacerbation (HCC) 07/03/2024 10:50 AM WORKERS COMPENSATION ATTORNEY - 07/03/2024 11:59 PM WORKERS COMPENSATION ATTORNEY Hospital Encounter [address] [address] COPD with acute exacerbation (HCC); Shortness of breath Discharge Disposition: Discharge to home or self care 07/03/2024 10:15 AM WORKERS COMPENSATION ATTORNEY Office Visit [facility] at [address] [phone] Kevin Hoang MD COPD with acute exacerbation (HCC) (Primary Dx); Shortness of breath; Hiatal hernia 07/03/2024 Telephone [facility] Care at [address] [phone] Kevin Hoang MD Hernia Question ; Medical Question/Miscellaneou s 07/02/2024 Nurse Triage [facility] at [address] [phone] Kevin Hoang MD from Last 3 Months Immunizations Immunization Administration [...] (chronic obstructive pulmonary disease) (HC C) Neuropathy legs Hypertension Hyperlipidemia History of ITP Depression [...] Date Smoking Tobacco: Former Cigarettes 1 10 1981 Smokeless Tobacco: Never Tobacco Cessation:Counseling Given: [...] on file Legal Sex Female 3:37 AM WORKERS COMPENSATION ATTORNEY Gender Identity Not on file Sexual Orientation Not on file 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 on file Not on file Not on file Obstetrics History Last Filed Vital Signs Vital Sign Reading Time Taken Comments Blood Pressure 137/83 08/19/2024 10:02 AM WORKERS COMPENSATION ATTORNEY Pulse 69 08/19/2024 10:02 AM WORKERS COMPENSATION ATTORNEY Temperature 36.1 C (96.9 F) 07/30/2024 10:08 AM WORKERS COMPENSATION ATTORNEY Respiratory Rate 18 07/23/2024 11:33 AM WORKERS COMPENSATION ATTORNEY Oxygen Saturation 96% 07/30/2024 10:08 AM WORKERS COMPENSATION ATTORNEY Inhaled Oxygen Concentration - - Weight 105.7 kg (233 lb) 08/19/2024 10:02 AM WORKERS COMPENSATION ATTORNEY Height 172.7 cm (5' 8 ) 08/19/2024 10:02 AM WORKERS COMPENSATION ATTORNEY Body Mass Index 35.43 08/19/2024 10:02 AM WORKERS COMPENSATION ATTORNEY Plan of Treatment Health Maintenance Due Date Last Done Comments Zoster Vaccine (1 of 2) 2005 Osteoporosis Screening-Bone Density Scan 05/11/2023 05/11/2021 Covid-19 Vaccine (2023-2 5 season) 2024 04/12/2021, 09/07/2020, 08/06/2020 Breast Cancer Screening-Mammogram 12/24/2024 12/25/2023, 03/10/2022, 06/24/2014, Additional history exists Influenza Vaccine (Season Ended) 2025 05/10/2023, 06/01/2022, 05/31/2022, Additional history exists Depression Screening 02/25/2025 02/26/2024, 08/23/2023, 06/01/2023, Additional history exists Fall Risk Assessment 02/25/2025 02/26/2024, 08/23/2023, 06/01/2023, Additional history exists Well Visit 65+ 05/22/2025 05/22/2024, 10/18, 04/07/2021 Colon Cancer Screening-Colonoscopy 05/24/2026 05/24/2016 DTaP/Tdap/Td Vaccine (2 - Td or Tdap) 08/20/2029 08/21/2019 Colon Cancer Screening-CT Colonography Discontinued 05/24/2016 Colon Cancer Screening-DNA Stool Discontinued 05/24/20 16 Colon Cancer Screening-FIT Discontinued 05/24/2016 Colon Cancer Screening-Sigmoidoscopy Discontinued 05/24/2016 Hepatitis C Screening Completed 04/07/2021 Pneumococcal vaccine 65+ Completed 05/10/2023 Hepatitis B Screening Completed 04/18/2024 Medical Devices Implanted Type Area Operation Manager Device Identifier Shelf Expiration Date Model / Serial / Lot [id number] Ph[employer]ix St Mesh With Echo 2 Positioning System 25cm X 33cm Implanted:Qty: 1 on 09/20/2021 by Robinson Iyer MD at [facility] N/A: Abdomen [facility] 11/13/2022 [id number] / / [id number] Procedures Procedure Name Priority Date/Time Associated Diagnosis Comments CT ABDOMEN PELVIS W CONTRAST Schedule Routine, Read Routine (OP Routine) 08/27/2024 3:00 PM CDT Ventral hernia without obstruction or gangrene NC ARTHROCENTESIS ASPIR&/INJ MAJOR JT/BURSA W/O US Routine 08/19/2024 10:00 AM WORKERS COMPENSATION ATTORNEY Primary osteoarthritis of both knees XR CHEST PA LATERAL 2 VIEWS Schedule Routine, Read Routine (OP Routine) 07/03/2024 11:10 AM WORKERS COMPENSATION ATTORNEY COPD with acute exacerbation (HCC) EGFR Routine 07/03/2024 10:57 AM WORKERS COMPENSATION ATTORNEY COPD with acute exacerbation (HCC) Shortness of breath DIFFERENTIAL AUTO Routine 07/03/2024 10:57 AM WORKERS COMPENSATION ATTORNEY COPD with acute exacerbation (HCC) Shortness of breath PRO B-TYPE NATRIURETIC PEPTIDE Routine 07/03/2024 10:57 AM WORKERS COMPENSATION ATTORNEY COPD with acute exacerbation (HCC) Shortness of breath COMPREHENSIVE METABOLIC PANEL Routine 07/03/2024 10:57 AM WORKERS COMPENSATION ATTORNEY COPD with acute exacerbation (HCC) Shortness of breath CBC WITH AUTO DIFFERENTIAL Routine 07/03/2024 10:57 AM WORKERS COMPENSATION ATTORNEY COPD with acute exacerbation (HCC) Shortness of breath HM MAMMOGRAPHY Routine 12/25/2023 3:13 PM CDT DEXA AXIAL SKELETON BONE DENSITY 1 OR MORE SITES Schedule Routine, Read Routine (OP Routine) 05/11/2021 4:07 PM WORKERS COMPENSATION ATTORNEY Screening for osteoporosis USP (current) use of inhaled steroids HEPATITIS C [...] to be increased in size compared to 2021. A dedicated chest CT is recommended for further evaluation. 3. Additional findings as above. THIS IS AN ELECTRONICALLY VERIFIED FINAL REPORT 08/31/2024 1:50 PM - Electronically signed by Audie Comer M.D. AG: ANNA Report ID: [id number] Reading Location: [id number] Procedure Note Audie Comer MD - 08/31/2024 [...] appears to be increased in sizecompared to 2022. A dedicated chest CT is recommended for further evaluation. 3. Additional findings as above. THIS IS AN ELECTRONICALLY VERIFIED FINAL REPORT 08/31/2024 1:50 PM - Electronically signed by Audie Comer M.D. AG: ANNA Report ID: [id number] Reading Location: [id number] us Robinson Iyer MD IMG CT PROCEDURE S Final Result * NC ARTHROCENTESIS ASPIR&/INJ MAJOR JT/BURSA W/O US (08/19/2024 10:00 AM WORKERS COMPENSATION ATTORNEY) Narrative Luis Mancini PA - 08/19/2024 10:00 AM WORKERS COMPENSATION ATTORNEY Luis Mancini PA 08/19/2024 10:29 AM Large [...] the procedure well with no immediate complications us Luis DICKERSON IN CLINIC/BEDSIDE ORDERABLE S Final Result * XR Chest PA Lateral 2 Views (07/03/2024 11:10 AM WORKERS COMPENSATION ATTORNEY) Anatomical Region Laterality Modality Body, Chest N/A Digital Radiogra phy 07/05/2024 7:18 AM WORKERS COMPENSATION ATTORNEY Narrative 07/05/2024 7:18 AM WORKERS COMPENSATION ATTORNEY EXAM DESCRIPTION: XR CHEST PA LATERAL 2 [...] Joseph Colbert D.O. PS T: Report ID: [id number] Reading Location: [id number] Procedure Note Joseph Colbert DO - 07/05/2024 EXAM DESCRIPTION: XR CHEST [...] Joseph Colbert D.O. PS T: Report ID: [id number] Reading Location: [place] [address] Kevin Hoang MD IMG XR PROCEDURES Final Res ult * eGFR (07/03/2024 10:57 AM WORKERS COMPENSATION ATTORNEY) eGFR 79 >=60 mL/min/1. 73 m2 Comment: [...] reviewed 2021. Blood 07/03/2024 10:5 7 AM WORKERS COMPENSATION ATTORNEY 07/03/2024 5:35 PM WORKERS COMPENSATION ATTORNEY us Kevin Hoang MD LAB BLOOD ORDERABLES Final Result JARAD [address] Department [place] [address] * Differential, auto (07/03/2024 10:57 AM WORKERS COMPENSATION ATTORNEY) Neutrophil abs 3.1 1.5 - 6.5 K/cumm Imm gran abs 0.0 0.0 - 0.1 K/cumm [facility] Lymphocyte abs 2.4 0.8 - 3.3 K/[facility]umm [facility] Monocyte abs 0.6 0.2 - 0.8 K/cumm [facility] Eosinophil abs 0.2 0.0 - 0.5 K/cumm [facility] Basophil abs 0.1 0.0 - 0.1 K/cumm [facility] Neutrophil pct 48.5 % [facility] [place] Comment: Interpretive Data Percent cell count reference ranges are not reported, since discordance with absolute values may lead to misinterpretation of CBC data. Current Interpretive Data was last revised on 2017. Imm gran pct 0.2 % [facility] Comment: Interpretive Data Percent cell count reference ranges are not reported, since discordance with absolute values may lead to misinterpretation of CBC data. Current Interpretive Data was last revised on 2017. Lymphocyte pct 38.0 % [facility] Comment: Interpretive Data Percent cell count reference ranges are not reported, since discordance with absolute values may lead to misinterpretation of CBC data. Current Interpretive Data was last revised on 2017. Monocyte pct 9.5 % [facility] Comment: Interpretive Data Percent cell count reference ranges are not reported, since discordance with absolute values may lead to misinterpretation of CBC data. Current Interpretive Data was last revised on 2017. Eosinophil pct 2.7 % [facility] [place] Comment: Interpretive Data Percent cell count reference ranges are not reported, since discordance with absolute values may lead to misinterpretation of CBC data. Current Interpretive Data was last revised on 2017. Basophil pct 1.1 % [facility] [place] Comment: Interpretive Data Percent cell count reference ranges are not reported, since discordance with absolute values may lead to misinterpretation of CBC data. Current Interpretive Data was last revised on 2017. Blood 07/03/2024 10:5 7 AM WORKERS COMPENSATION ATTORNEY 07/03/2024 5:26 PM WORKERS COMPENSATION ATTORNEY us Kevin Hoang MD LAB BLOOD ORDERABLES Final Result Performing Organization Address City/State/ZIP [facility] Phone Number JARAD [address] Department of Laboratories [place], [place] [id number] * Pro B-type natriuretic peptide (07/03/2024 10:57 AM WORKERS COMPENSATION ATTORNEY) NT-proBNP 55 <=300 pg/mL Comment: Interpretive Comments: [...] Date: 2018. Blood 07/03/2024 10:5 7 AM WORKERS COMPENSATION ATTORNEY 07/03/2024 5:26 PM WORKERS COMPENSATION ATTORNEY Kevin Hoang MD LAB BLOOD ORDERABLES Final Result Performing Organization Address [facility] Co de Phone Number JARAD RAMOS [address] [place], [place] [id number] * (ABNORMAL) CBC with auto differential (07/03/2024 10:57 AM WORKERS COMPENSATION ATTORNEY) Pathologist [facility] WBC 6.3 3.8 - 9.9 K/cumm Hgb [...] [facility] CH Blood 07/03/2024 10:5 7 AM WORKERS COMPENSATION ATTORNEY 07/03/2024 5:26 PM WORKERS COMPENSATION ATTORNEY Kevin Hoang MD LAB BLOOD ORDERABLES Final Result Performing Organization Address City/[facility]/ZIP Co de Phone Number JARAD RAMOS [address] Department [place] [address] * Comprehensive metabolic panel (07/03/2024 10:57 AM WORKERS COMPENSATION ATTORNEY) Pathologist [facility] Sodium 142 135 - 145 mmol/L Potassium, pl 3.4 3.3 - 4.9 mmol/L [facility] Chloride 106 97 - 110 mmol/L [facility] CO2 24 22 - 32 mmol/L [facility] Anion gap 12 2 - 15 mmol/L [facility] BUN 12 6 - 25 mg/dL [facility] Creatinine 0.81 0.60 - 1.10 mg/dL [facility] Glucose 95 70 - 199 mg/dL [facility] Comment: Interpretive Data Fasting glucose >/= 126 [...] Calcium 9.7 8.5 - 10.3 mg/dL [facility] Bilirubin, total 0.4 0.1 - 1.2 mg/dL [facility] Protein, pl 7.2 6.5 - 8.5 g/dL [facility] Albumin 3.9 3.5 - 5.0 g/dL [facility] Alk phos 63 40 - 130 Units/L [facility] ALT 24 7 - 45 Units/L [facility] AST 29 10 - 45 Units/L [facility] Blood 07/03/2024 10:5 7 AM WORKERS COMPENSATION ATTORNEY 07/03/2024 5:26 PM WORKERS COMPENSATION ATTORNEY Kevin Hoang MD LAB BLOOD ORDERABLES Final Result Performing Organization Address City/State/[facility] Co tn Phone Number [facility] [address] Department [place] [address] * HM MAMMOGRAPHY (12/25/2023 3:13 PM CDT) Historical Provider HEALTH MAINTENANCE Final Result * Dexa Axial Skeleton Bone Density 1 Or 2 Site (05/11/2021 4:07 PM WORKERS COMPENSATION ATTORNEY) Anatomical Region Laterality Modality Body N/A Other 05/12/2021 7:06 AM WORKERS COMPENSATION ATTORNEY Impressions 05/12/2021 7:06 AM WORKERS COMPENSATION ATTORNEY Normal bone mineral density of the spine and left hip. Electronically signed by: Denise Vail M.D. Narrative 05/12/2021 7:06 AM WORKERS COMPENSATION ATTORNEY Examination: Bone densitometry of the lumbar spine [...] hip. Electronically signed by: Denise Vail M.D. us Kevin Hoang MD IM DXA PROCEDURES Final Re sult * Hepatitis C antibody (04/07/2021 12:00 PM CDT) Pathologist [facility] Hep C Ab Nonreactive Nonreactive JARAD Comment: Interpretive Data Nonreactive: Antibodies to HCV [...] MICROBIOLOGY - GENERAL ORDERABLES Final Result JARAD [address] Department [place] [address] * HM COLONOSCOPY (05/24/2016) us Historical Provider HEALTH MAINTENANCE Final Result from Last 3 Months or Most Recently Relevant to Health Maintenance Insurance [address] [place] [address] [id number] [employer] H[employer] REF [address] [place] [id number] [employer] Advance Directives For more information, please contact: [phone] * Full Code (Latest Code Status on File) Date Activated Date Inactivated Comments 09/20/2021 5:38 PM 09/22/2021 9:03 PM Care Teams X Ray Equipment Tester Relationship Specialty Start Date End Date Kevin Hoang MD [address] [facility] [address] [place] [address] PCP - General Family Medicine 07/25/22 Luisito Conrad MD [address] [place] [address] Consulting Physician Ophthalmology 04/07/21 Audie Escalera MD [address] [place] [address] [address] [facility] [address] [place] [address] Surgeon Orthopedic Surgery 11/07/22 Robinson Iyer MD [address] [facility] [place] [address] Consulting Physician General Surgery 11/07/22
== END 2024-09-17 08:57 | disposition home or self-care (01) ==
PROVIDERS: PCP Family Medicine; Visit Provider Nurse Practitioner Family
DX: K44.9 Diaphragmatic hernia without obstruction or gangrene (principal); K21.9 Gastro-esophageal reflux disease without esophagitis
CPT/HCPCS: 74246

== ENCOUNTER 2025-04-18 13:34 | Emergency (ER) | payer MEDICARE, SELFPAY ==
--- NOTE | ~2025-04-18 | XR_ITS ---
EXAM/PROCEDURE: XR chest 2V HISTORY: dyspnea COMPARISON: None available. TECHNIQUE: Two view(s) of the chest. FINDINGS: LUNGS: Clear of acute processes. PLEURAL SPACES: Clear. No evidence of fluid or pneumothorax. HEART/ MEDIASTINUM: There is prominence of the cardiac silhouette on the frontal view, at least in part related to the AP technique. SOFT TISSUES: No significant findings. BONES: No acute osseous abnormality. There is a large hiatal hernia, which is known IMPRESSION: No acute findings. Reviewed, dictated and finalized at location A. IMPRESSION: No acute findings.
--- OUTSIDE RECORDS SUMMARY | 2025-04-18 13:37 | XMS_ITS | Encounter Summary ---
Author Organization [facility] Healthcare Address [address] [place] [address] Care Team Providers Care Drier Helper Name Role Phone Luisito Conrad MD Unavailable [phone] Kevin Hoang MD Primary Care Provider [phone] Audie Escalera MD Unavailable [phone] Robinson Iyer MD Unavailable Wilian Menard MD Unavailable Reason for Visit * Reason Onset Date Comments Med Refill 04/16/2025 Encounter Details Date Type Department Care Team (Late st Contact Info) Description 04/16/2025 Telephone [facility] Primary Care at [place] [address] [place] [address] Kevin Hoang MD [address] [place] [address] [address] [place] [address] Med Refill Social History Tobacco Use Types Packs/Day Years Used Date Smoking Tobacco: Former Cigarettes 1 10 0 06/19/1971 - 1981 Smokeless Tobacco: Never Alcohol Use Standard Drinks/Week Comments Never 0 (1 standard drink = 0.6 oz pur e alcohol) [facility] Utilities Answer Date Recorded In the past 12 months has th e electric, gas, oil, or water company threatened to shut off services in your home? No 10/29/2024 Social Connection and Isolation Panel Answer Date Recorded In a typical week, how many times do you talk on the phone with family, friends, or neighbors? More than three times a week 10/29/2024 How often do you get togethe r with friends or relatives? Three times a week 10/29/2024 How often do you attend chur ch or congregational services? Never 10/29/2024 Do you belong to any clubs o r organizations such as voodoo groups, unions, fraternal or athletic groups, or school groups? No 10/29/2024 How often do you attend meet ings of the clubs or organizations you belong to? Never 10/29/2024 Are you , , di vorced, , never , or living with a partner? 10/29/2024 Overall Financial Resource Strain (CARDIA) Answe r Date Recorded How hard is it for you to pa y for the very basics like food, housing, medical care, and heating? Not very hard 10/29/2024 PHQ-2 Answer Date Recorded PHQ-2 Total Score (If total score is 3 or more points, staff should administer the PHQ-9) 4 03/21/2025 Exercise Vital Sign Answer Date Recorde d On average, how many days pe r week do you engage in moderate to strenuous exercise (like a brisk walk)? 2 days 04/07/2021 On average, how many minutes do you engage in exercise at this level? 30 min 04/07/2021 Hunger Vital Sign Answer Date Recorded Within the past 12 months, y ou worried that your food would run out before you got the money to buy more. Never true 10/30/19 25 Within the past 12 months, t he food you bought just didn't last and you didn't have money to get more. Never true 10/29/2024 PRAPARE - Transportation Answer Date Re corded In the past 12 months, has l ack of transportation kept you from medical appointments or from getting medications? No 10/17 In the past 12 months, has l ack of transportation kept you from meetings, work, or from getting things needed for daily living? No 10/29/2024 PHQ-9 Answer Date Recorded PHQ-9 Total Score 8 03/21/2025 Housing Stability Vital Sign Answer Vimal e Recorded In the last 12 months, was t here a time when you were not able to pay the mortgage or rent on time? No 10/29/2024 In the past 12 months, how m any times have you moved where you were living? 0 10/29/2024 At any time in the past 12 m [facility], were you homeless or living in a half-way (including now)? No 10/29/2024 AUDIT-C Answer Date Recorded Q1: How often do you have a drink containing alcohol? Never 01/31/2025 Q2: How many drinks containi ng alcohol do you have on a typical day when you are drinking? Patient does not drink Q3: How often do you have si x or more drinks on one occasion? Never 01/31/2025 Personal Safety Answer Date Recorded Have you ever been in or are you currently in a harmful physical or emotional relationship or is someone making you feel afraid or unsafe? Denies 10/28/2024 Education Answer Date Recorded What is the highest level of school you have completed or the highest degree you have received? 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 This medication is not the preferred choice for her age. This is can cause a side effect that is not recommended for her age, depression. They are wanting to know why she is taking this so that they can recommend a replacement medication. If needed, Pharmacy(s) medication(s) should be sent to: none Additional Comments: none Does message need to be routed? Yes-Action Needed documented in this encounter Plan of Treatment Not on file documented as of this encounter Visit Diagnoses Not on filedocumented in this encounter Care Teams Drier Helper Relationship Specialty Start Date End Date Kevin Hoang MD [address] [facility] [address] [place] [address] PCP - General Family Medicine 07/25/22 Luisito Conrad MD [address] [place] [address] Consulting Physician Ophthalmology 04/07/21 Audie Escalera MD [address] [facility] [address] GRISELDA Lenz [facility] [address] [place] [address] Surgeon Orthopedic Surgery 11/07/22 Robinson Iyer MD [address] [place] [address] DR GRISELDA Lenz [facility] [address] [place] [address] Consulting Physician General Surgery 11/07/22 Wilian Menard MD [address] [facility] [address] [place] [address] Referring Physician Critical Care Med 11/28/24 documented as of this encounter
--- OUTSIDE RECORDS SUMMARY | 2025-04-18 13:37 | XMS_ITS | Encounter Summary ---
Author Organization [facility] Healthcare Address [address] [place] [address] Care Team Providers Care Retread Technician Name Role Phone Luisito Conrad MD Unavailable [phone] Kevin Hoang MD Primary Care Provider Audie Escalera MD Unavailable [phone] Robinson Iyer MD Unavailable Wilian Menard MD Unavailable [phone] Reason for Visit * Reason Onset Date Comments Facial Swelling 04/17/2025 Encounter Details Date Type Department Care Team (Late st Contact Info) Description 04/17/2025 Nurse Triage [facility] Medical Group Primary Care at [address] [address] Ekaterina Ontiveros, BOLA Social History Tobacco Use Types Packs/Day Years Used Date Smoking Tobacco: Former Cigarettes 1 10 0 06/19/1971 - 1981 Smokeless Tobacco: Never Alcohol Use Standard Drinks/Week Comments Never 0 (1 standard drink = 0.6 oz pur e alcohol) [facility] Utilities Answer Date Recorded In the past [...] often do you attend chur ch or scientologist services? Never 10/29/2024 Do you belong to any clubs o r organizations such as quaker groups, unions, fraternal or athletic groups, or [...] any time in the past 12 m [facility], were you homeless or living in a group home (including now)? 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 Onset 04/17/25 No other symptoms-newest meds are Terbinafine 250 mg (historical provider for foot fungus) at nighthas taken about 7 tabs has 2-3 days left and Torsemide but has been on med about 3 weeks, was decreased to 5mg @ 04/10/25, wore makeup several weeks ago which she normally does not do-nothing recent. No new foods or drinks or skin care or detergents. No fevers. No rashes to other parts of body. Herleg lymphedema remains unchanged and goes today for wraps. No SOB or wheeze. Speaking clearly in phone in complete sentences. No chest pain. No vision issues. No headaches or dizziness. Provider contacted via secure chat for ED disposition consult. Recommendation from provider:Other: per stop Terbinafine and see if symptoms improve to see if that is the cause and report back to office, gave pt strong instructions-if ANY new or worsening sytmpoms-especially breathing, swallowing or feeling like throat or face is worsening-call 911-Pt understood. Side note:Triage DID not add Terbinafine to allergy med list-sent to office to determine if PCP wants on list. Message routed for determination Self care pt using Benadryl now per box. Disposition Go to ED/UCC Now (or to Office With PCP Approval) Reason for Disposition Taking an DESI Inhibitor medicine (e.g., benazepril/LOTENSIN, captopril/CAPOTEN, enalapril/VASOTEC, lisinopril/ZESTRIL) Protocols Used Face Bptlunol-Zqfia-BT * Telephone Encounter - Sarai Sanabria RN - 04/17/2025 10:31 AM CDT Regarding: facial swelling along with rash / whelping ----- Message from Lety Quinonez sent at 04/17/2025 10:22 AM CDT ----- Symptom Based Call Chief Complaint(s): facial swelling along with rash / whelping Duration: today What type of symptom(s) is the patient experiencing? Red Flag. Is the patient concerned they are experiencing a medical emergency requiring an ambulance? No Additional Comments: patient stated she is unsure if rash is related to an allergic reaction to newmedication, whole face has whelps and swelling Does message need to be routed? Yes-Action Needed documented in this encounter Plan of Treatment Not on file documented as of this encounter Visit Diagnoses Not on filedocumented in this encounter Discontinued Medications Medication Sig Discontinue Reason Start Date End Da te terbinafine (LamiSIL) 250 mg tablet Take 1 tablet (250 mg total) by mouth daily Other 04/17/2025 documented as of this encounter Historical Medications * This list may reflect changes made after this encounter. terbinafine (LamiSIL) 250 mg tablet Take 1 tablet (250 mg total) by mouth daily 04/17/2025 added in this encounter Care Teams Retread Technician Relationship Specialty Start Date End Date Kevin Hoang MD [address] [facility] [address] [place] [address] PCP - General Family Medicine 07/25/22 Luisito Conrad MD [address] [place] [address] Consulting Physician Ophthalmology 04/07/21 Audie Escalera MD [address] [facility] [address] GRISELDA Lenz [facility] [address] [place] [address] Surgeon Orthopedic Surgery 11/07/22 Robinson Iyer MD [address] [place] [address] [address] GRISELDA Lenz [facility] [address] [place] [address] Consulting Physician General Surgery 11/07/22 Wilian Menard MD [address] [place], [place] [address] Referring Physician Critical Care Med 11/28/24 documented as of this encounter
--- OUTSIDE RECORDS SUMMARY | 2025-04-18 13:37 | XMS_ITS | Encounter Summary ---
Author Organization [facility] Healthcare Address [address] [place] [address] Care Team Providers Care Machine Mover Name Role Phone Luisito Conrad MD Unavailable [phone] Kevin Hoang MD Primary Care Provider [phone] Audie Escalera MD Unavailable Robinson Iyer MD Unavailable Wilian Menard MD Unavailable Reason for Visit * Reason Onset Date Comments Test Results 04/04/2025 04/03/25 Transth oracic Echo (TTE) Complete W Doppler/CF WO Contrast Encounter Details Date Type Department Care Team (Late st Contact Info) Description 04/04/2025 Results Follow-Up [facility] Medical Group Primary Care at [address] [address] Kevin Hoang MD [address] [place] [address] [address] [place] [address] Transthoracic Echo (TTE) Complete W Doppler/CF Social History Tobacco Use Types Packs/Day Years Used Date Smoking Tobacco: Former Cigarettes 1 10 0 06/19/1971 - 1981 Smokeless Tobacco: Never Alcohol Use Standard Drinks/Week Comments Never 0 (1 standard drink = 0.6 oz pur e alcohol) [facility] Utilities Answer Date Recorded In the past 12 months has e electric, gas, oil, or water company [...] often do you attend chur ch or rastafari services? Never 10/29/2024 Do you belong to any clubs o r organizations such as hoahaoism groups, unions, fraternal or athletic groups, or [...] any time in the past 12 m [facility], were you homeless or living in a alf (including now)? 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 Test Result Request Type of test: Transthoracic Echo (TTE) Complete W Doppler/CF WO Contrast Date of test: 04/03/25 Where was the test performed at?[facility] Medical [facility] Cardiology Did provider dictate result yet? Yes Where were results relayed from in the chart? Cardiology Tab Additional Questions/Comments: Would specifically like to discuss: Findings: Left Atrium: There is severe enlargement of left atrium. INDICATIONS: Diastolic Dysfunction, Bilateral LE Edema and I87.2 Venous insufficiency (chronic) (peripheral). And any other results that sound/appear negative. In addition, requesting more information on how Dr. Hoang wants to proceed with her compression socks. She is under the impression that he was not happy with the ones she currently has. Was there an order that was supposed to have been placed? Please notify Ms. Carpenter by phone to discuss further. Does message need to be routed? Yes-Action Needed documented in this encounter Plan of Treatment Not on file documented as of this encounter Visit Diagnoses Not on filedocumented in this encounter Care Teams Machine Mover Relationship Specialty Start Date End Date Kevin Hoang MD [address] [facility] [address] [place] [address] PCP - General Family Medicine 07/25/22 Luisito Conrad MD [address] [place] [address] Consulting Physician Ophthalmology 04/07/21 Audie Escalera MD [address] [place] [address] DR GRISELDA Lenz [address] [address] Surgeon Orthopedic Surgery 11/07/22 Robinson Iyer MD [address] [place] [address] DR GRISELDA Lenz [facility] [address] [place] [address] Consulting Physician General Surgery 11/07/22 Wilian Menard MD [address] [place] [address] Referring Physician Critical Care Med 11/28/24 documented as of this encounter
--- OUTSIDE RECORDS SUMMARY | 2025-04-18 13:37 | XMS_ITS | Encounter Summary ---
Author Organization [facility] Healthcare Address [address] [place] [address] Care Team Providers Care Pad Machine Offbearer Name Role Phone Luisito Conrad MD Unavailable [phone] Kevin Hoang MD Primary Care Provider Audie Escalera MD Unavailable Robinson Iyer MD Unavailable Wilian Menard MD Unavailable Encounter Details Date Type Department Care Team (Late st Contact Info) Description 04/18/2025 Telephone [facility] Medical Group Primary Care at [place] [address] [place] [address] Kevin Hoang MD [address] [facility] [address] [place] [address] Social History Tobacco Use Types Packs/Day Years Used Date Smoking Tobacco: Former Cigarettes 1 10 0 06/19/1971 - 1981 Smokeless Tobacco: Never Alcohol Use Standard Drinks/Week Comments Never 0 (1 standard drink = 0.6 oz pur e alcohol) [facility] Utilities Answer Date Recorded In the past [...] often do you attend chur ch or jehovah's witness services? Never 10/29/2024 Do you belong to any clubs o r organizations such as taoism groups, unions, fraternal or athletic groups, or [...] any time in the past 12 m [facility], were you homeless or living in a correction (including now)? 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 Not on file Not on file documented as of this encounter Plan of Treatment Not on file documented as of this encounter Visit Diagnoses Not on filedocumented in this encounter Care Teams Pad Machine Offbearer Relationship Specialty Start Date End Date Kevin Hoang MD [address] [address] PCP - General Family Medicine 07/25/22 Luisito Conrad MD [address] [place] [address] Consulting Physician Ophthalmology 04/07/21 Audie Escalera MD [address] [facility] [address] GRISELDA Lenz [facility] [address] [place] [address] Surgeon Orthopedic Surgery 11/07/22 Robinson Iyer MD [address] [facility] [address] GRISELDA Lnez [facility] [address] [place] [address] Consulting Physician General Surgery 11/07/22 Wilian Menard MD [address] [place] [address] Referring Physician Critical Care Med 11/28/24 documented as of this encounter
--- OUTSIDE RECORDS SUMMARY | 2025-04-18 13:37 | XMS_ITS | Encounter Summary ---
Author Organization [facility] Address [address] [place] [address] Phone Care Team Providers Care Closed Circuit Screen Watcher Name Role Phone Wilian Belle MD Primary Care Provider [phone] Luisito Conrad MD Unavailable [phone] Kevin Hoang MD Primary Care Provider [phone] Kalee Morelos CMA Unavailable [phone] Kevin Hoang MD Primary Care Provider [phone] Audie Escalear MD Unavailable [phone] Robinson Iyer MD Unavailable Wilian Menard MD Unavailable [phone] Encounter Details Date Type Department Care Team (Latest Contact Info) Description 11/06/2017 Orders Only [facility] Scanning, Provider Social History Tobacco Use Types Packs/Day Years Used Date Smoking Tobacco: Never Assessed Comments Unknown Sex and Gender Information Value Date Recorded Sex Assigned at Not on file Legal Sex Female 3:37 AM CASTING ASSISTANT Gender Identity Not on file Sexual Orientation [...] COVID: Suspected 05/10/2021 05/10/2021 05/10/2021 4:19 PM CASTING ASSISTANT documented as of this encounter Care Teams Closed Circuit Screen Watcher Relationship Specialty Start Date End Date Wilian Belle MD PCP - General Family Medicine 07/27/18 04/06/21 [place] [address] [place] [address] PCP - General Family Medicine 04/07/21 07/24/22 Kevin Hoang MD [address] [place] [address] [address] [place] [address] PCP - General Family Medicine 07/25/22 [place] [address] [place] [address] Consulting Physician Ophthalmology 04/07/21 Kalee Morelos, [facility] [address] [facility] [address] [place] [address] [employer] Care Mining Support Worker 09/27/21 09/27/21 Audie Escalera MD [address] [place] [address] [address] [place] [address] Surgeon Orthopedic Surgery 11/07/22 Robinson Iyer MD [address] [facility] [address] [place] [address] Consulting Physician General Surgery 11/07/22 Wilian Menard MD [address] [place] [address] Referring Physician Critical Care Med 11/28/24 documented as of this encounter
--- OUTSIDE RECORDS SUMMARY | 2025-04-18 13:37 | XMS_ITS | Encounter Summary ---
Author Organization [facility] Healthcare Address [address] [place] [address] Care Team Providers Care Workday Financials Consultant Name Role Phone Luisito Conrad MD Unavailable [phone] Kevin Hoang MD Primary Care Provider Audie Escalera MD Unavailable [phone] Robinson Iyer MD Unavailable Wilian Menard MD Unavailable Encounter Details Date Type Department Care Team (Late st Contact Info) Description 12/05/2022 Telephone [facility] [address] [place] [address] Coreen Gonazlez, [place] Social History Tobacco Use Types Packs/Day Years Used Date Smoking Tobacco: Former Cigarettes 1 10 1 972 - 1981 Smokeless Tobacco: Never AUDIT-C Answer [...] on file Legal Sex Female 3:37 AM MEDICAL INTERN Gender Identity Not on file Sexual Orientation Not on file 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 Not on file Not on file documented as of this encounter Plan of Treatment Not on file documented as of this encounter Visit Diagnoses Not on filedocumented in this encounter Care Teams Workday Financials Consultant Relationship Specialty Start Date End Date Kevin Hoang MD [address] [facility] [address] [place] [address] PCP - General Family Medicine 07/25/22 Luisito Conrad MD [facility] [place] [address] Consulting Physician Ophthalmology 04/07/21 Audei Escalera MD [address] [place] [address] [address] GRISELDA Lenz [address] [place] [address] Surgeon Orthopedic Surgery 11/07/22 Robinson Iyer MD [address] [place] [address] DR GRISELDA Lenz [place] [address] [place] [address] Consulting Physician General Surgery 11/07/22 Wilian Menard MD [address] [place] [address] Referring Physician Critical Care Med 11/28/24 documented as of this encounter
--- OUTSIDE RECORDS SUMMARY | 2025-04-18 13:37 | XMS_ITS | Encounter Summary ---
Author Organization [facility] Healthcare Address [address] [place] [address] Care Team Providers Care Compressor Battery Pellets Name Role Phone Luisito Conrad MD Unavailable [phone] Kevin Hoang MD Primary Care Provider Audie Escalera MD Unavailable Robinson Iyer MD Unavailable Wilian Menard MD Unavailable [phone] Reason for Visit * Reason Onset Date Comments Hypertension 04/18/2025 Encounter Details Date Type Department Care Team (Late st Contact Info) Description 04/18/2025 Nurse Triage [facility] [place] [address] [place] [address] Kevin Hoang MD [address] [place] [address] [address] [place] [address] Social History Tobacco Use Types Packs/Day Years Used Date Smoking Tobacco: Former Cigarettes 1 10 0 06/19/1971 - 1981 Smokeless Tobacco: Never Alcohol Use Standard Drinks/Week Comments Never 0 (1 standard drink = 0.6 oz pur e alcohol) [facility] Utilities Answer Date Recorded In the [...] often do you attend chur ch or orthodoxy services? Never 10/29/2024 Do you belong to any clubs o r organizations such as mu-ism groups, unions, fraternal or athletic groups, or [...] any time in the past 12 m [facility], were you homeless or living in a longterm (including now)? 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 Spoke with acetylene torch burner yesterday and Dr. Hoang was contacted and recommended patient stop Terbinafine and see if symptoms improve. States she took her BP which was 169/93, HR 103. States her head and skin feels funny and her stomach is funny. Last night she was wheezing. States she has tingling in both of her arms. Triage Protocol Recommends - Go to ER Now. SC sent to [facility]. Response received for patient to go ER. Care Advice Given: Have someone drive you. Educated to call back if worsens, new symptoms develop or has further questions or concerns. Provider contacted via secure chat for ED disposition consult. Recommendation from provider:Proceedto ED Regarding: Feeling a little off ----- Message from Ca Quinonez sent at 04/18/2025 12:08 PM CDT ----- Symptom Based Call Chief Complaint(s): Feeling a little off Duration: Started during call What type of symptom(s) is the patient experiencing? Red Flag. Is the patient concerned they are experiencing a medical emergency requiring an ambulance? No Additional Comments: Pt states symptoms may be due to blood pressure but she has not checked at this time will do so after call. Pt says she spoke to nurse yesterday as well for facial swelling, no worsening symptoms at this time but wondering if she should continue taking benadryl. Appt was scheduled for this upcoming Monday but pt states she is unsure if she will be able to make it due to PT appt. Does message need to be routed? Yes-Action Needed documented in this encounter Plan of Treatment Not on file documented as of this encounter Visit Diagnoses Not on filedocumented in this encounter Care Teams Compressor Battery Pellets Relationship Specialty Start Date End Date Kevin Hoang MD [address] [facility] [address] [place], [place] [id number] PCP - General Family Medicine 07/25/22 Luisito Conrad MD [address] [place] [address] Consulting Physician Ophthalmology 04/07/21 Audie Escalera MD [address] [place] [address] [address] [place] [address] Surgeon Orthopedic Surgery 11/07/22 Robinson Iyer MD [address] [place] [address] Consulting Physician General Surgery 11/07/22 Wilian Menard MD [address] [place] [address] Referring Physician Critical Care Med 11/28/24 documented as of this encounter
--- OUTSIDE RECORDS SUMMARY | 2025-04-18 13:37 | XMS_ITS | Clinical Summary ---
Author Organization [facility] Address [address] [place] [address] Care Team Providers Care Vending Route Driver Name Role Phone Luisito Conrad MD Unavailable [phone] Kevin Hoang MD Primary Care Provider Audie Escalera MD Unavailable [phone] Robinson Iyer MD Unavailable Wilian Menard MD Unavailable Allergies Active Allergy Reactions Criticality Noted Date Comments Codeine Other (See comments) Low Patient states it makes her hyper Ketamine Anxiety,Other (See comments) Low 10/28/2024 Jittery, moving about during eye surgery Sulfites Joint pain Low 07/05/2022 Venom-Honey Bee Unknown 08/20/2024 Medications vit A/vit C/vit E/zinc/copper (PRESERVISION AREDS ORAL) Take by mouth Acti ve cromolyn (OPTICROM) 4 % ophthalmic solution INSTILL 1 DROP INTO LEFT EYE ONCE A DAY 10 mL 3 02/23/20 24 Active ALPRAZolam (XANAX) 0.25 mg tablet Take [...] (10 mg total) by mouth nightly Active amitriptyline (ELAVIL) 10 mg tabletIndicatio ns:Idiopathic peripheral neuropathy TAKE 1 TABLET BY MOUTH EVERY DAY AT NIGHT 100 tablet 1 09/05/19 25 Active azelastine (ASTELIN) 137 mcg (0.1 %) nasal sprayIndication s:Seasonal allergic rhinitis due to pollen ADMINISTER 2 SPRAYS INTO EACH NOSTRIL 2 (TWO) TIMES A DAY USE IN EACH NOSTRIL DIRECTED 180 mL 1 09/14/19 25 Active fluticasone-ume clidin-vilanter (Trelegy Ellipta) 200-62.5-25 mcg inhaler INHALE 1 PUFF BY MOUTH DAILY 180 each 11/13/19 25 Active hydrocortisone (ANUSOL-HC) 2.5 % rectal creamIndication s:Grade II hemorrhoids Insert into the rectum 4 (four) times a day as needed for hemorrhoids (rectal discomfort) Apply to affected areas 30 g 12/28/19 25 Active verapamil ER (VERELAN) 240 mg 24 hr capsuleIndicati ons:hypertensio n Take 1 capsule (240 mg total) by mouth nightly 30 capsule 01/14/202025 Active fluticasone propionate (FLONASE) 50 mcg/actuation nasal spray SPRAY 1 SPRAY INTO EACH NOSTRIL EVERY DAY 48 mL 1 02/04/20 25 Active metFORMIN XR (GLUCOPHAGE XR) 500 mg 24 hr tablet TAKE 1 TABLET BY MOUTH EVERY DAY WITH BREAKFAST 90 tablet 02/28/20 25 Active EPINEPHrine 0.3 mg/0.3 mL auto-injection syringe Inject 0.3 mL (0.3 mg total) into the muscle as instructed as needed for anaphylaxis 2 each 1 02/28/20 25 Active losartan (COZAAR) 50 mg tabletIndicatio ns:Essential hypertension TAKE 1 TABLET BY MOUTH TWICE A DAY 200 tablet 1 03/15/20 25 Active albuterol HFA (PROVENTIL HFA,VENTOLIN HFA,PROAIR HFA) 90 mcg/actuation inhaler INHALE 2 PUFFS BY MOUTH EVERY 4 HOURS NEEDED FOR WHEEZE OR SHORTNESS OF BREATH 8.5 each 2 03/24/20 25 Active sertraline (ZOLOFT) 50 mg tabletIndicatio ns:Recurrent major depressive disorder, in partial remission Take 2 tablets (100 mg total) by mouth nightly 03/28/20 25 Active docusate sodium (COLACE) 100 mg capsule TAKE 1 CAPSULE BY MOUTH TWICE A DAY 60 capsule 2 03/31/20 25 Active famotidine (PEPCID) 40 mg tabletIndicatio ns:Laryngeal spasm TAKE 1 TABLET BY MOUTH EVERY DAY AT NIGHT 90 tablet 04/01/20 25 Active cyanocobalamin (Vitamin B-12) 250 mcg tablet TAKE 1 TABLET BY MOUTH EVERY DAY 90 tablet 1 04/01/20 25 Active torsemide (DEMADEX) 5 mg tabletIndicatio ns:Edema Take 1 tablet (5 mg total) by mouth 2 (two) times a day 60 tablet 1 04/10/20 25 2024 Active cyanocobalamin, vitamin B-12, (VITAMIN B-12 ORAL) Take by mouth 2024 Discontinued(D uplicate order) traMADoL (ULTRAM) 50 mg tablet Take 1 tablet (50 mg total) by mouth every 6 (six) hours as needed for pain for up to 7 days 28 tablet 10/31/19 25 2024 Discontinued cyanocobalamin (Vitamin B-12) 250 mcg tablet TAKE 1 TABLET BY MOUTH EVERY DAY 90 tablet 1 11/13/19 25 2024 Discontinued docusate sodium (COLACE) 100 mg capsule Take 1 capsule (100 mg total) by mouth 2 (two) times a day 60 capsule 2 12/28/19 25 2024 Discontinued albuterol HFA (PROVENTIL HFA,VENTOLIN HFA,PROAIR HFA) 90 mcg/actuation inhaler INHALE 2 PUFFS BY MOUTH EVERY 4 HOURS NEEDED FOR WHEEZE OR SHORTNESS OF BREATH 8.5 each 2 01/11/20 25 2024 Discontinued lansoprazole (PREVACID) 30 mg capsule TAKE 1 CAPSULE BY MOUTH EVERY DAY 90 capsule 1 02/04/20 25 2024 Discontinued(D uplicate order) lisinopril-hydr oCHLOROthiazide (ZESTORETIC) 20-12.5 mg per tablet TAKE 1 TABLET BY MOUTH TWICE A DAY 200 tablet 3 02/04/20 25 2024 Discontinued(A lternate therapy) famotidine (PEPCID) 40 mg tabletIndicatio ns:Laryngeal spasm TAKE 1 TABLET BY MOUTH EVERY DAY AT NIGHT 90 tablet 02/04/20 25 2024 Discontinued sertraline (ZOLOFT) 50 mg tabletIndicatio ns:Recurrent major depressive disorder, in partial remission TAKE 1 TABLET BY MOUTH TWICE A DAY 200 tablet 1 02/04/20 25 2024 Discontinued(R eorder) torsemide (DEMADEX) 5 mg tablet Take 1 tablet (5 mg total) by mouth daily 30 tablet 6 03/04/20 25 2024 Discontinued(R eorder) terbinafine (LamiSIL) 250 mg tablet Take 1 tablet (250 mg total) by mouth daily 2024 Discontinued(O ther) Active Problems Problem Noted Date Diagnosed Date Left atrial enlargement 04/04/2025 Asymmetric septal hypertrophy 04/04/2025 Chronic ITP (idiopathic thrombocytopenia) 2024 Aortic stenosis, mild 03/20/2025 Blindness left eye category 3, normal vision rig ht eye 03/20/2025 Chondromalacia of knee 03/20/2025 Compression neuropathy 03/20/2025 Diastolic dysfunction 03/20/2025 Dysphagia 03/20/2025 Fibromyalgia 03/20/2025 Iatrogenic hypotension 03/20/2025 Mild intermittent reactive a irways dysfunction syndrome with acute exacerbation 03/20/2025 Obesity (BMI 30.0-34.9) 03/20/2025 Panic attack 03/20/2025 Radiculopathy, lumbar region 03/20/2025 Varicose vein of leg 03/20/2025 Vasomotor rhinitis 03/20/2025 Grade II hemorrhoids 11/28/2024 Pain in the shoulder 11/19/2024 S/P repair of recurrent ventral hernia 05/20/202 5 Preop examination 10/08/2024 Assessment & Plan (10/08/2024 2:45 PM CDT): - chronic conditions discussed and medication list updated, recent CXR and EKG appropriate - RCRI Score of 1 point and 6.0 % Risk of major cardiac event - pt can proceed with planned surgery as scheduled UTI (urinary tract infection) 10/08/2024 Assessment & Plan (10/08/2024 2:42 PM CDT): - will send urine culture at this time, advised to continue current keflex 500mg qid for now Primary osteoarthritis of both knees 07/23/2024 Slow transit constipation 07/23/2024 Annual physical exam 05/22/2024 Assessment & Plan (05/22/2024 11:47 AM FINANCE DIRECTOR): -Recommended: Healthy diet. Avoiding junk food/fast food. [...] 06/01/2023 Assessment & Plan (05/22/2024 11:46 AM FINANCE DIRECTOR): Stable on current medication. Continue sertraline 100mg as ordered. May follow up in 6 months Also uses amitriptyline 10mg at bedtime for sleep Memory loss 11/11/2022 Class 2 severe obesity due t o excess calories with serious comorbidity and body mass index (BMI) of 36.0 to 36.9 in adult 01/07/2022 Assessment & Plan (05/24/2024 10:39 PM FINANCE DIRECTOR): BMI Follow-up includes: exercise counseling. Assessment & Plan (11/15/2023 10:35 AM CDT): BMI Follow-up includes: nutrition counseling, exercise counseling, and education provided. Assessment & Plan (05/10/2023 10:58 AM FINANCE DIRECTOR): BMI Follow-up includes: nutrition counseling, exercise counseling, and education provided. Assessment & Plan (02/23/2023 11:10 AM CDT): Monitor weight changes Healthy, low carbohydrate lifestyle and exercise for 150min/week recommended Assessment & Plan (11/11/2022 1:39 PM CDT): BMI Follow-up includes: nutrition counseling, exercise counseling and education provided. Assessment & Plan (01/07/2022 9:04 PM CDT): BMI Follow-up includes: nutrition counseling, exercise counseling and education provided. Hiatal hernia 08/19/2021 Assessment & Plan (12/12/2023 9:59 PM CDT): This is likely a contributor to her dyspnea She has had surgical evaluation. Small portion sizes at meals and sit upright after completion. Assessment & Plan (08/19/2021 1:48 PM FINANCE DIRECTOR): Outside of the shortness of breath, which [...] ensure that she sit up with eating. Arthritis of both knees 05/19/2021 Left hip pain 04/28/2021 Assessment & Plan (04/28/2021 10:08 AM FINANCE DIRECTOR): I'm not convinced serious injury; we will treat conservatively for a week, with ibuprofen 600-800 mg every 8 hours as needed, ice and heat to the tender area 3- 4 times a day, 20 min's per. Xray will be held in abeyance unless not improving through the week. Let us know Allergic rhinitis 04/07/2021 Assessment & Plan (08/10/2022 11:34 AM FINANCE DIRECTOR): Nasal saline spray (Simply saline, Little Remedies, [place], [place]) 2 second sprays or 2 squeezes into [...] 10/16/2020 Assessment & Plan (05/22/2024 11:45 AM FINANCE DIRECTOR): Stable/ Improved. Blood pressure is adequately controlled on lisinopril (Prinivil) and hydrochlorothiazide, verapamil . We will not make any medication changes today. Will have her follow-up in 6 months for continued monitoring and management Assessment & Plan (05/12/2023 2:28 PM FINANCE DIRECTOR): Continuing verapamil, lisinopril-hct Labs ordered for next visit Discussed herbals. Might look into turmeric, krill oil with hyaluronic acid (e.g Solomon-Red), collagen joint supplement Continue good exercise practice, but don't push too far beyond tolerance. 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 Pharmacotherapy as ordered.- atorvastatin Lipids will be reassessed in 6 months. 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 A1AT normal Resolved Problems Problem Noted Date Diagnosed Date Resolved Date Incisional hernia of anterio r abdominal wall with obstruction 10/28/2024 11/05/2024 Incisional hernia with obstr uction but no gangrene 09/19/2024 11/05/2024 Other chest pain 04/25/2023 05/22/2024 Acute recurrent [...] 05/22/2024 Assessment & Plan (08/11/2022 12:49 PM FINANCE DIRECTOR): Pepcid 40 mg at bedtime Chronic maxillary sinusitis 07/05/2022 05/22/2024 Assessment & Plan (07/05/2022 12:05 PM FINANCE DIRECTOR): Nasal saline spray (Simply saline, Little Remedies, [place], [place]) 2 second sprays or 2 squeezes into [...] medications, and relevant testing from Pauline Akila Cueto's recent admission. Complications and discharge plan have been noted, reviewed. Post-discharge testing has not been ordered. Incisional hernia with obstr uction but no gangrene 08/24/2021 01/05/2022 Overview (08/24/2021): Added automatically from request for surgery [id number] Assessment & Plan (10/07/2021 10:53 AM CDT): [...] She will call sooner if anything changes. Ventral hernia without obstr uction or gangrene 08/19/2021 12/03/2024 Assessment & Plan (07/30/2024 10:54 AM FINANCE DIRECTOR): I do not fully appreciate any fascial [...] plan. Assessment & Plan (07/23/2024 11:48 AM FINANCE DIRECTOR): Not having pain, but it's inhibiting movement [...] week) Assessment & Plan (08/19/2021 1:46 PM FINANCE DIRECTOR): The patient has multiple fascial defects along [...] the need for possible conversion to open. Internal hemorrhoids without complication 04/09/2021 05/22/2024 Preoperative cardiovascular examination 04/09/2021 05/22/2024 Assessment & Plan (11/07/2022 10:43 AM CDT): A(n) yearly Medicare Annual Wellness Visit has been performed today. Pauline Cueto is not up to date on screening [...] of care has been performed today. Pauline Cueto is not up to date on screening [...] on echocardiogram, I do not see a [facility] Weight loss and increase exercise Encounters Date Type Department Care Team Description 04/18/2025 Nurse Triage [facility] Primary Care at [address] [phone] Kevin Hoang MD 04/18/2025 Telephone [facility] Primary Care at [address] [phone] Kevin Hoang MD 04/17/2025 Nurse Triage [facility] Primary Care at [address] [phone] Ekaterina Ontiveros, BOLA 04/16/2025 Telephone [facility] Primary Care at [address] [phone] Kevin Hoang MD Med Refill 04/10/2025 Orders Only [facility] Primary Care at [address] [phone] Kevin Hoang MD 04/08/2025 Telephone [facility] Primary Care at [address] [phone] Cate Fernandez MA compression stockings 04/08/2025 Telephone [facility] Primary Care at [address] [phone] Kevin Hoang MD Med Refill 04/04/2025 Results Follow-Up [facility] Primary Care at [address] [phone] Kevin Hoang MD Transthoracic Echo (TTE) Complete W Doppler/CF 04/03/2025 2:00 PM CDT Ancillary Procedure [facility] Cardiology at [address] [place] [address] Diastolic dysfunction; Edema of both lower extremities due to peripheral venous insufficiency 03/28/2025 11:45 AM CDT Office Visit [facility] Primary Care at [address] [phone] Kevin Hoang MD Diastolic dysfunction (Primary Dx); Edema of both lower extremities due to peripheral venous insufficiency; Anxiety disorder with panic attacks; Recurrent major depressive disorder, in partial remission; Lipedema of lower extremity 03/27/2025 Nurse Triage [facility] Primary Care at [address] [phone] Kevin Hoang MD 03/24/2025 Therapy [facility] Sports Medicine and Primary Care at [address] [place] [address] Kenia Waddell MA Primary osteoarthritis of both knees (Primary Dx); Edema of both lower extremities due to peripheral venous insufficiency 03/21/2025 11:30 AM CDT Office Visit [facility] Primary Care at [address] [phone] Kevin Hoang MD Edema of both lower extremities due to peripheral venous insufficiency (Primary Dx); Encounter for screening mammogram for malignant neoplasm of breast; Screening for osteoporosis; Asymptomatic menopausal state; Need for vaccination 03/21/2025 Telephone [facility] Primary Care at [address] [phone] Kevin Hoang MD Lab Results 03/20/2025 Telephone [facility] Primary Care at [address] [phone] Kevin Hoang MD Medical Records Request 03/06/2025 2:15 PM CDT Lab [address] [address] Essential hypertension; Class 2 severe obesity due to excess calories with serious comorbidity and body mass index (BMI) of 36.0 to 36.9 in adult (HCC); Mixed hyperlipidemia 03/06/2025 2:00 PM CDT Lab [address] [address] Dermatophytosis of nail (Primary Dx) 02/28/2025 10:45 AM CDT Office Visit [facility] Cardiology at [address] [place] [phone] Wilian Foy MD Essential hypertension (Primary Dx) 02/28/2025 Telephone [facility] Cardiology [address] [address] [address] [place] [address] Brisa Nixon MA Torsemide 02/27/2025 Orders Only [facility] Primary Care at [address] [phone] Kevin Hoang MD 02/11/2025 Telephone [facility] Medical [facility] Primary Care at [address] [phone] Kevin Hoang MD Med Refill 02/11/2025 Telephone [facility] Primary Care at [address] [phone] Kevin Hoang MD Forms Request 02/03/2025 Orders Only [facility] Orthopedics and Sports Medicine [address] [place] [address] [address] [place] [address] Luis Mancini PA Primary osteoarthritis of both knees (Primary Dx); Quadriceps tendinitis; Weakness of right lower extremity 01/31/2025 11:00 AM CDT - 01/31/2025 11:59 PM CDT Hospital Encounter [facility] Medical [facility] Orthopedics and Sports Medicine [address] [place] [address] [address] [place] [address] Discharge Disposition: Discharge to home or self care 01/31/2025 10:45 AM CDT Office Visit [facility] Sports Medicine [address] [place] [address] [address] [place] [address] Luis Mancini PA Primary osteoarthritis of both knees (Primary Dx); Quadriceps tendinitis; Weakness of right lower extremity 01/27/2025 Telephone [facility] Sports Medicine [address] [place] [phone] Luis Mancini PA 01/24/2025 Telephone [facility] Sports Medicine [address] [place] [address] [address] [place] [address] Audie Escalera MD 01/23/2025 2:00 PM CDT Ancillary Procedure [facility] Vascular and Vein Surgery at [address] [place] [address] Edema of both lower extremities due to peripheral venous insufficiency; Localized swelling, mass and lump, lower limb, bilateral 01/23/2025 Telephone [facility] Medical [facility] Primary Care at [address] [phone] Kevin Haong MD patient question about blood thinners 01/21/2025 Orders Only [facility] Medical [facility] Primary Care at [address] [phone] eKvin Hoang MD 01/21/[address] [address] Daxa Fisher Chart Review (error) 01/21/2025 ACO Quality [address] [address] Daxa Fisher from Last 3 Months Immunizations Immunization Administration Dates Next Due Influenza, Quadrivalent, Negra l Culture-based MDCK, Antibiotic Free, Intramuscular 05/11/2019 Influenza, Quadrivalent, Hig h Dose, Preservative Free, Intrr 05/10/2023,05/31/2022,04/07/2021 Influenza, Quadrivalent, Spl it, Preservative Free, Intramuscular 02/28/2020,05/25/2018 Influenza, Trivalent, High D ose, Split, Preservative Free, Intramuscular 03/21/2025 Influenza, Trivalent, IM (MDV) 03/02/2017 Influenza, Unspecified 02/23/2023(Deferr ed: Patient Refused),01/25/2023(Deferred: Patient Refused),06/01/2022,05/09/2022(Deferre d: Patient Refused),05/25/2018 Moderna SARS-CoV-2 Monovalen t Vaccination (12+ YRS) 04/12/2021 Moderna Sars-cov-2 Monovalen t Booster Vaccination (12+ YRS) 09/07/2020,08/06/2020 Pneumococcal Conjugate Pcv20 05/10/2023 Tdap 08/21/2019 Surgical History Surgery Date Site/Laterality Comments SPLENECTOMY, PARTIAL 06/19/1983 - 06/18/1984 OCULAR PROSTHESIS REMOVAL 06/19/2009 - 06/18/2010 Left secondary to failed retina surgery TOTAL ABDOMINAL HYSTERECTOMY W/ BILATERAL SALPINGOOPHORECTOMY 06/19/2000 - 06/18/2001 AUGMENTATION MAMMOPLASTY 06/19/2005 - 06/18/2006 Bilateral HERNIA REPAIR 09/20/2021 INCISIONAL HERNIA REPAIR 10/28/2024 APPENDECTOMY Medical History Medical History Date Comments Arthritis COPD (chronic obstructive pulmonary disease) Neuropathy legs Hypertension Hyperlipidemia History of ITP Depression MVP (mitral valve prolapse) Internal hemorrhoids without complication 2020 Hiatal hernia Peripheral neuropathy Chronic rhinitis 12/12/2023 Type 2 diabetes mellitus Anxiety Oxygen dependent 2L O2 at bedtim e GERD (gastroesophageal reflux disease) Lung disease Incisional hernia with obstruction but no gangre ne 09/19/2024 Incisional hernia of anterio r abdominal wall with obstruction 10/28/2024 Chronic bronchitis (HCC) Ventral hernia without obstruction or gangrene 0 08/19/2021 Family History Medical History Relation Name Comments Hypertension Brother 1 Brain cancer Brother 2 Bone cancer Father Arcelia Arik Cancer Father Arcelia Arik Diabetes Father Arcelia Arik Heart disease Father Arcelia Arik Heart attack Maternal Grandfather No Known Problems Maternal Grandmother Hypertension Mother Arthritis Other Bleeding Disorder Other No Known Problems Paternal Grandfather Diabetes Paternal Grandmother Hypertension Sister 1 Hypertension Sister 2 Hypertension Sister 3 Hypertension Sister 4 Hypertension Sister 5 Relation Name Status Comments Brother 1 Alive Brother 2 Father Arcelia Arik Maternal Grandfather Maternal Grandmother Mother Other Paternal Grandfather Paternal Grandmother Sister 1 Alive Sister 2 Alive Sister 3 Alive Sister 4 Alive Sister 5 Alive Social History Tobacco Use Types Packs/Day Years Used Date Smoking Tobacco: Former Cigarettes 1 10 0 06/19/1971 - 1981 Smokeless Tobacco: Never Tobacco Cessation:Counseling Given: Not Answered Alcohol Use Standard Drinks/Week Comments Never 0 (1 standard drink = 0.6 oz pur e alcohol) [facility] Utilities Answer Date Recorded In the past [...] any clubs o r organizations such as restoration groups, unions, fraternal or athletic groups, or [...] any time in the past 12 [facility], were you homeless or living in a fdc (including now)? 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 on file Not on file Not on file Obstetrics History Last Filed Vital Signs Vital Sign Reading Time Taken Comments Blood Pressure 134/70 03/28/2025 11:53 AM CDT Pulse 92 03/28/2025 11:53 AM CDT Temperature 36.1 C (96.9 F) 03/28/2025 11:53 AM CDT Respiratory Rate 18 03/28/2025 11:53 AM CDT Oxygen Saturation 96% 03/28/2025 11:53 AM CDT Inhaled Oxygen Concentration - - Weight 99.3 kg (219 lb) 03/28/2025 11:53 AM CDT Height 175.3 cm (5' 9) 03/28/2025 11:53 AM CDT Body Mass Index 32.34 03/28/2025 11:53 AM CDT Plan of Treatment Health Maintenance Due Date Last Done Comments Meningococcal B Vaccine (1 of 4 - Increased Risk) 1965 Osteoporosis Screening-Bone Density Scan 05/11/2023 05/11/2021 Breast Cancer Screening-Mammogram 12/24/2024 12/25/2023, 03/10/2022, 06/24/2014, Additional history exists Well Visit 65+ 05/22/2025 05/22/2024, 10/18, 04/07/2021 Zoster Vaccine (1 of 2) 11/19/2025 Post poned from 2005 (Insurance / Financial) Fall Risk Assessment 01/02/2026 01/02/2025, 10/30/2024, 09/19/2024, Additional history exists Covid-19 Vaccine ( season) 2026 04/12/2021, 09/07/2020, 09/07/2020, Additional history exists Postponed from 02/17/2025 (Patient declined, but will receive in the future) Depression Screening 03/21/2026 03/21/2025, 03/21/2025, 01/02/2025, Additional history exists Colon Cancer Screening-Colonoscopy 05/24/2026 05/24/2016 DTaP/Tdap/Td Vaccine (2 - Td or Tdap) 08/20/2029 08/21/2019 Colon Cancer Screening-CT Colonography Discontinued 05/24/2016 Colon Cancer Screening-DNA Stool Discontinued 05/24/2016 Colon Cancer Screening-FIT Discontinued 05/24/2016 Colon Cancer Screening-Sigmoidoscopy Discontinued 05/24/2016 Hepatitis C Screening Completed 04/07/2021 Pneumococcal vaccine 65+ Completed 05/10/2023 Hepatitis B Screening Completed 04/18/2024 Influenza Vaccine Completed 03/21/2025, , 06/01/2022, Additional history exists Medical Devices Implanted Type Area Fleet Assistant Device Identifier Shelf Expiration Date Model / Serial / Lot [id number] Phasix St Mesh With Echo 2 Positioning System 25cm X 33cm Implanted:Qty: 1 on 09/20/2021 by Robinson Iyer MD at [facility] N/A: Abdomen [employer] 11/13/2022 [id number] / / [id number] [employer]/C R Bard Sepramesh Ip Sepra 8x6in Monofilament Bioresorbable Composite Latex Free [id number] - [id number] Implanted:Qty: 1 on 10/28/2024 by Robinson Iyer MD at [facility] Abdomen [employer] 08/16/2025 [id number] / / [id number] Procedures Procedure Name Priority Date/Time Associated Diagnosis Comments TRANSTHORACIC ECHO (TTE) COMPLETE W DOPPLER/CF WO CONTRAST Routine 04/03/2025 2:55 PM CDT Diastolic dysfunction Edema of both lower extremities due to peripheral venous insufficiency EGFR Routine 03/06/2025 2:17 PM CDT Essential hypertension DIFFERENTIAL AUTO Routine 03/06/2025 2:1 7 PM CDT Essential hypertension CBC WITH AUTO DIFFERENTIAL Routine 03/06/2025 2:17 PM CDT Essential hypertension COMPREHENSIVE METABOLIC PANEL Routine 03/06/2025 2:17 PM CDT Essential hypertension LIPID PANEL Routine 03/06/2025 2:17 PM CDT Mixed hyperlipidemia VITAMIN D 25 HYDROXY Routine 03/06/2025 2:17 PM CDT Class 2 severe obesity due to excess calories with serious comorbidity and body mass index (BMI) of 36.0 to 36.9 in adult (HCC) THYROID FUNCTION CASCADE Routine 03/06/2025 2:17 PM CDT Essential hypertension AST Routine 03/06/2025 2:11 PM CDT Dermatophytosis of nail ALT Routine 03/06/2025 2:11 PM CDT Dermatophytosis of nail XR KNEE BILATERAL 4 OR MORE VIEWS Schedule Routine, Read Routine (OP Routine) 01/31/2025 11:11 AM CDT Primary osteoarthritis of both knees TX ARTHROCENTESIS ASPIR&/INJ MAJOR JT/BURSA W/O US Routine 01/31/2025 10:45 AM CDT Primary osteoarthritis of both knees US VEIN DUPLEX LOWER EXTREMITY BILATERAL COMPLETE Schedule Routine, Read Routine (OP Routine) 01/23/2025 2:25 PM CDT Edema of both lower extremities due to peripheral venous insufficiency Localized swelling, mass and lump, lower limb, bilateral MAMMOGRAPHY Routine 12/25/2023 3:13 PM CDT DEXA AXIAL SKELETON BONE DENSITY 1 OR MORE SITES Schedule Routine, Read Routine (OP Routine) 05/11/2021 4:07 PM FINANCE DIRECTOR 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 (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) use of inhaled steroids HEPATITIS C ANTIBODY Routine 04/07/2021 12:00 PM CDT Encounter for hepatitis C screening test for low risk patient COLONOSCOPY Routine 05/24/2016 from Last 3 Months or Most Recently Relevant to Health Maintenance Results * TRANSTHORACIC ECHO (TTE) COMPLETE W DOPPLER/CF WO CONTRAST (04/03/2025 2:55 PM CDT) Estimated EF 75 % CONS SCIMAGE EF Mod BP 71 % CONS SCIMAGE Anatomical Region Laterality Modality Ultrasound 04/03/2025 2:18 PM CDT Narrative 04/03/2025 3:51 PM CDT [facility] Cardiology [address], [address], [place] [address] P:[phone] P:[phone] Echocardiographic Report Patient Name: PAULINE CUETO L : 1955 Study Date: 04/03/2025 2:18:31 PM Sex: F Broadband Installer: RYLEY Location: [facility] Ref Provider: KEVIN HOANG Height(Cm): 175 BSA: 2.2 Weight(Kg): 99.3 Heart Rate: 94 BP: 134 / 70 Quality: Good Order Provider: KEVIN HOANG PROCEDURES: Echocardiographic Report: Transthoracic echocardiogram with complete 2D, M-Mode, and color Doppler examination. With Strain Analysis. INDICATIONS: Diastolic Dysfunction, Bilateral LE Edema and I87.2 Venous insufficiency (chronic) (peripheral). MEASUREMENTS: 2D/MM Value Range Doppler Value Range EF Mod BP 71 % [ 54 - 74 ] ELEONORA Vmax 2.36 cm2 [ 2.00 - 4.00 ] EF Teich MM 74 % [ 54 - 74 ] AV Mean PG 8 mmHg Estimated EF 75 % AV Peak Liborio 1.85 m/s [ 1.00 - 1.70 ] LV GLS -19.33 % AV Peak PG 14 mmHg LVIDd 2D 4.30 cm [ 3.80 - 5.20 ] AV VTI 38.36 cm LVIDd MM 4.34 cm [ 3.80 - 5.20 ] LVOT Diam 2.00 cm [ 1.70 - 2.10 ] LVIDs 2D 2.39 cm [ 2.20 - 3.50 ] LVOT Peak Liborio 1.39 m/s [ 0.70 - 1.10 ] LVIDs MM 2.50 cm [ 2.20 - 3.50 ] LVOT VTI 28.81 cm LVPWd 2D 1.07 cm [ 0.60 - 0.90 ] MV E Peak Liborio 1.01 m/s [ 0.60 - 1.30 ] LVPWd MM 0.73 cm [ 0.60 - 0.90 ] MV A Peak Liborio 1.19 m/s [ 1.00 - 1.20 ] IVSd 2D 1.51 cm [ 0.60 - 0.90 ] MV Decel Time 100 msec [ 104 - 258 ] IVSd MM 1.03 cm [ 0.60 - 0.90 ] PV Peak Liborio 1.27 m/s [ 0.40 - 0.80 ] LA Dimension MM 3.73 cm [ 2.70 - 3.80 ] TR Peak Liborio 2.63 m/s [ 1.00 - 2.80 ] AoR Diam MM 2.95 cm [ 2.70 - 3.30 ] TR Peak PG 28 mmHg LA Volume 93.61 ml [ 22.00 - 52.00 ] RV S` 0.14 m/s LA Volume Index 43 cc/m2 [ 16 - 28 ] Lateral E` 0.12 m/s [ 0.10 - 0.15 ] ACS MM 1.77 cm Septal E` 0.08 m/s [ 0.08 - 0.15 ] RA Volume 32.95 ml E` 0.10 m/s E/E` 10 Tapse 2.23 cm [ 1.71 - 5.00 ] 2D/MM Value Range Doppler Value Range - FINDINGS: Interpretation Site: Exam was interpreted at [facility]. Left Ventricle: Normal left ventricular systolic function. No focal wall motion abnormalities. Normal left ventricular size. Moderate asymmetric septal hypertrophy with septal wall thickness of 1.5 cm. Impaired diastolic relaxation Grade I. Ejection fraction is measured at 71 %. Ejection Fraction is visually estimated to be 75 %. Global Longitudinal Strain is -19 %. GLS is normal. Right Ventricle: Normal right ventricular size. Normal right ventricular systolic function. Left Atrium: There is severe enlargement of left atrium. Right Atrium: The right atrium is normal in size. Atrial Septum: Normal atrial septum. Mitral Valve: Normal appearance of the mitral valve. Mild mitral valve regurgitation. There is no hemodynamically significant mitral stenosis by Doppler. Aortic Valve: No evidence of hemodynamically significant aortic stenosis by Doppler. Aortic cusps appear mildly sclerotic. Trileaflet aortic valve. Trace aortic valve regurgitation. Tricuspid Valve: Normal appearance of the tricuspid valve. Normal right ventricular systolic pressure. Estimated peak RVSP is 30-35 mmHg. Mild tricuspid regurgitation. Pulmonic Valve: Normal appearance of the pulmonic valve. No pulmonic stenosis. Mild pulmonic regurgitation. Pericardium: Normal pericardium with no significant pericardial effusion. Aorta: Normal aortic root. IVC: Normal size and normal respiratory collapse consistent with normal right atrial pressure (<5 mmHg). CONCLUSIONS: Normal left ventricular systolic function. No focal wall motion abnormalities. Normal left ventricular size. Moderate asymmetric septal hypertrophy with septal wall thickness of 1.5 cm. Impaired diastolic relaxation Grade I. Ejection fraction is measured at 71 %. Ejection Fraction is visually estimated to be 75 %. Global Longitudinal Strain is -19 %. GLS is normal. There is severe enlargement of left atrium. Mild mitral valve regurgitation. Mild tricuspid regurgitation. Mild pulmonic regurgitation. Normal sinus rhythm. Electronically Signed By: Robinson Hurley MD 04/03/2025 3:51:17 PM CDT Procedure Note Robinson Hurley MD - 04/03/2025 [facility] Medical [facility] Cardiology [address], [address], [place] [address] P:[phone] P:[phone] Echocardiographic Report Patient Name: PAULNIE CUETO L : 1955 Study Date: 04/03/2025 2:18:31 PM Sex: F Broadband Installer: RYLEY Location: [facility] Ref Provider: KEVIN HOANG Height(Cm): 175 BSA: 2.2 Weight(Kg): 99.3 Heart Rate: 94 BP: 134 / 70 Quality: Good Order Provider: KEVIN HOANG PROCEDURES: Echocardiographic Report: Transthoracic echocardiogram with complete 2D, M-Mode, and color Dopplerexamination. With Strain Analysis. INDICATIONS: Diastolic Dysfunction, Bilateral LE Edema and I87.2 Venous insufficiency(chronic) (peripheral). MEASUREMENTS: 2D/MM Value Range Doppler ValueRange EF Mod BP 71 % [ 54 - 74 ] ELEONORA Vmax 2.36cm2 [ 2.00 - 4.00 ] EF Teich MM 74 % [ 54 - 74 ] AV Mean PG 8mmHg Estimated EF 75 % AV Peak Liborio 1.85m/s [ 1.00 - 1.70 ] LV GLS -19.33 % AV Peak PG 14mmHg LVIDd 2D 4.30 cm [ 3.80 - 5.20 ] AV VTI 38.36cm LVIDd MM 4.34 cm [ 3.80 - 5.20 ] LVOT Diam 2.00cm [ 1.70 - 2.10 ] LVIDs 2D 2.39 cm [ 2.20 - 3.50 ] LVOT Peak Liborio 1.39m/s [ 0.70 - 1.10 ] LVIDs MM 2.50 cm [ 2.20 - 3.50 ] LVOT VTI 28.81cm LVPWd 2D 1.07 cm [ 0.60 - 0.90 ] MV E Peak Liborio 1.01m/s [ 0.60 - 1.30 ] LVPWd MM 0.73 cm [ 0.60 - 0.90 ] MV A Peak Liborio 1.19m/s [ 1.00 - 1.20 ] IVSd 2D 1.51 cm [ 0.60 - 0.90 ] MV Decel Time 100msec [ 104 - 258 ] IVSd MM 1.03 cm [ 0.60 - 0.90 ] PV Peak Liborio 1.27m/s [ 0.40 - 0.80 ] LA Dimension MM 3.73 cm [ 2.70 - 3.80 ] TR Peak Liborio 2.63m/s [ 1.00 - 2.80 ] AoR Diam MM 2.95 cm [ 2.70 - 3.30 ] TR Peak PG 28mmHg LA Volume 93.61 ml [ 22.00 - 52.00 ] RV S` 0.14m/s LA Volume Index 43 cc/m2 [ 16 - 28 ] Lateral E` 0.12m/s [ 0.10 - 0.15 ] ACS MM 1.77 cm Septal E` 0.08m/s [ 0.08 - 0.15 ] RA Volume 32.95 ml E` 0.10m/s E/E` 10 Tapse 2.23 cm [ 1.71 - 5.00 ] 2D/MM Value Range Doppler ValueRange - FINDINGS: Interpretation Site: Exam was interpreted at [facility]. Left Ventricle: Normal left ventricular systolic function. No focal wall motionabnormalities. Normal left ventricular size. Moderate asymmetric septal hypertrophy with septalwall thickness of 1.5 cm. Impaired diastolic relaxation Grade I. Ejection fraction ismeasured at 71 %. Ejection Fraction is visually estimated to be 75 %. Global LongitudinalStrain is -19 %. GLS is normal. Right Ventricle: Normal right ventricular size. Normal right ventricular systolicfunction. Left Atrium: There is severe enlargement of left atrium. Right Atrium: The right atrium is normal in size. Atrial Septum: Normal atrial septum. Mitral Valve: Normal appearance of the mitral valve. Mild mitral valve regurgitation.There is no hemodynamically significant mitral stenosis by Doppler. Aortic Valve: No evidence of hemodynamically significant aortic stenosis by Doppler.Aortic cusps appear mildly sclerotic. Trileaflet aortic valve. Trace aortic valveregurgitation. Tricuspid Valve: Normal appearance of the tricuspid valve. Normal right ventricularsystolic pressure. Estimated peak RVSP is 30-35 mmHg. Mild tricuspid regurgitation. Pulmonic Valve: Normal appearance of the pulmonic valve. No pulmonic stenosis. Mildpulmonic regurgitation. Pericardium: Normal pericardium with no significant pericardial effusion. Aorta: Normal aortic root. IVC: Normal size and normal respiratory collapse consistent with normal rightatrial pressure (<5 mmHg). CONCLUSIONS: Normal left ventricular systolic function. No focal wall motionabnormalities. Normal left ventricular size. Moderate asymmetric septal hypertrophy with septalwall thickness of 1.5 cm. Impaired diastolic relaxation Grade I. Ejection fraction ismeasured at 71 %. Ejection Fraction is visually estimated to be 75 %. Global LongitudinalStrain is -19 %. GLS is normal. There is severe enlargement of left atrium. Mild mitral valve regurgitation. Mild tricuspid regurgitation. Mild pulmonic regurgitation. Normal sinus rhythm. Electronically Signed By: Robinson Hurley MD 04/03/2025 3:51:17 PM CDT us Kevin Hoang MD CV ECHO PROCEDURES Final Re sult * eGFR (03/06/2025 2:17 PM CDT) eGFR 81 >=60 mL/min/1. 73 m2 Comment: Interpretive Data [...] interpretive data was last reviewed 2021. Blood 03/06/2025 2:17 PM CDT 03/06/2025 6:20 PM CDT us Kevin Hoang MD LAB BLOOD ORDERABLES Final Result [facility] [address] [place] [address] * Differential, auto (03/06/2025 2:17 PM CDT) Pathologist [facility] Neutrophil abs 3.27 1.50 - 6.50 K/cumm Imm gran abs 0.02 0.00 - 0.10 K/cumm [facility] Lymphocyte abs 2.85 0.80 - 3.30 K/cumm [facility] Monocyte abs 0.56 0.20 - 0.80 K/cumm [facility] Eosinophil abs 0.13 0.00 - 0.50 K/cumm [facility] Basophil abs 0.06 0.00 - 0.10 K/cumm [facility] Neutrophil pct 47.4 % [facility] Comment: Interpretive Data Percent cell count reference ranges are not reported, since discordance with absolute values may lead to misinterpretation of CBC data. Current Interpretive Data was last revised on 2017. Imm gran pct 0.3 % [facility] Comment: Interpretive Data Percent cell count reference ranges are not reported, since discordance with absolute values may lead to misinterpretation of CBC data. Current Interpretive Data was last revised on 2017. Lymphocyte pct 41.4 % [facility] Comment: Interpretive Data Percent cell count reference ranges are not reported, since discordance with absolute values may lead to misinterpretation of CBC data. Current Interpretive Data was last revised on 2017. Monocyte pct 8.1 % [facility] Comment: Interpretive Data Percent cell count reference ranges are not reported, since discordance with absolute values may lead to misinterpretation of CBC data. Current Interpretive Data was last revised on 2017. Eosinophil pct 1.9 % [facility] Comment: Interpretive Data Percent cell count reference ranges are not reported, since discordance with absolute values may lead to misinterpretation of CBC data. Current Interpretive Data was last revised on 2017. Basophil pct 0.9 % [facility] Comment: Interpretive Data Percent cell count reference ranges are not reported, since discordance with absolute values may lead to misinterpretation of CBC data. Current Interpretive Data was last revised on 2017. Blood 03/06/2025 2:17 PM CDT 03/06/2025 6:20 PM CDT Kevin Hoang MD LAB BLOOD ORDERABLES Final Result Performing Organization Address [facility] Co de Phone Number [address] [address] * Thyroid Function [place] (03/06/2025 2:17 PM CDT) Pathologist [facility] TSH 1.62 0.30 - 4.20 mcIUnit/mL Blood 03/06/2025 2:17 PM CDT 03/06/2025 6:20 PM CDT Kevin Hoang MD LAB BLOOD ORDERABLES Final Result Performing Organization Address City/[facility] Co de Phone Number [address] [address] * (ABNORMAL) CBC with auto differential (03/06/2025 2:17 PM CDT) Pathologist [facility] WBC 6.89 3.80 - 9.90 K/cumm Hgb 12.0 11.9 - 15.5 g/dL [facility] Hct 36.5 35.6 - 45.5 % [facility] Plt 202 150 - 400 K/cumm [facility] MPV 12.2 9.1 - 12.3 fL [facility] RBC 3.96 3.90 - 5.20 M/cumm [facility] MCV 92.2 81.3 - 96.4 fL [facility] MCH 30.3 27.1 - 33.3 pg [facility] MCHC 32.9 32.3 - 35.7 g/dL [facility] RDW CV 15.2(H) 11.1 - 14.9 % [facility] RDW SD 50.5(H) 35.7 - 48.1 fL [facility] NRBC abs 0.00 0.00 - 0.01 K/cumm [facility] Blood 03/06/2025 2:17 PM CDT 03/06/2025 6:20 PM CDT Kevin Hoang MD LAB BLOOD ORDERABLES Final Result Performing Organization Address [facility] Co de Phone Number [address] [place] [address] * Vitamin D 25 hydroxy (03/06/2025 2:17 PM CDT) Vitamin D 25-OH 31.0 30.0 - 80.0 ng/mL Blood 03/06/2025 2:17 PM CDT 03/06/2025 6:20 PM CDT Kevin Hoang MD LAB BLOOD ORDERABLES Final Result Performing Organization Address City/[facility] Co de Phone Number [address] [place] [address] * (ABNORMAL) Lipid panel (03/06/2025 2:17 PM CDT) Cholesterol 237(H) 30 - 199 mg/dL Comment: Interpretive Data Ages < or = 19 years Acceptable: <170 mg/dL Borderline high: 170-199 mg/dL High: >or= 200 mg/dL Ages > or = 20 years Desirable: <200 mg/dL Borderline high: 200-239 mg/dL High: >or= 240 mg/dL Literature References: 1. Expert Panel on Integrated Guidelines for Cardiovascular Health and Risk Reduction in Children and Adolescents. Pediatrics 2011;128:S213 2. NCEP Expert Panel. Circulation 2004;110:227 Current Interpretive Data was last revised on 2018. Triglycerides 87 <=149 mg/dL [facility] Comment: Interpretive Data Ages < or = 9 years Acceptable: <75 mg/dL Borderline high: 75-99 mg/dL High: >or= 100 mg/dL Ages 10 to 20 years Acceptable: <90 mg/dL Borderline high: 90-129 mg/dL High: >or= 130 mg/dL Ages > or = 20 years Desirable: <150 mg/dL Borderline high: 150-199 mg/dL High: 200-499 mg/dL Very high: >or= 499 mg/dL Literature References: 1. Expert Panel on Integrated Guidelines for Cardiovascular Health and Risk Reduction in Children and Adolescents. Pediatrics 2011;128:S213 2. NCEP Expert Panel. Circulation 2004;110:227 Current Interpretive Data was last revised on 2018. HDL 65 >=40 mg/dL [facility] Comment: Interpretive Data Ages < or = 19 years Acceptable: >45 mg/dL Borderline low: 40-45 mg/dL Low: <40 mg/dL Ages > or = 20 years Desirable: >or= 60 mg/dL Low: <40 mg/dL Literature References: 1. Expert Panel on Integrated Guidelines for Cardiovascular Health and Risk Reduction in Children and Adolescents. Pediatrics 2011;128:S213 2. NCEP Expert Panel. Circulation 2004;110:227 Current Interpretive Data was last revised on 2018. LDL, calculated 157(H) <=129 mg/dL [facility] Comment: Interpretive Data Ages < or = 19 years Acceptable: <110 mg/dL Borderline high: 110-129 mg/dL High: >or= 130 mg/dL Ages > or = 20 years Optimal: <100 mg/dL Near optimal: 100-129 mg/dL Borderline high: 130-159 mg/dL High: >160 mg/dL Calculated using the Lakhwinder LDL-C estimating equation. This equation was implemented on 2024. Prior to this date LDL-C was estimated using the Friedewald equation. Literature References: 1. Expert Panel on Integrated Guidelines for Cardiovascular Health and Risk Reduction in Children and Adolescents. Pediatrics 2011;128:S213 2. NCEP Expert Panel. Circulation 2004;110:227 3. Keane M et al. NA Cardiol. 2019October 17;5(5):540-548. doi: 10.1001/jamacardio.2020.0013 Current Interpretive Data was last revised on 2024. Non-HDL Cholesterol 172 mg/dL [facility] Comment: Interpretive Data Ages < or = 19 years Acceptable: <120 mg/dL Borderline high: 120-144 mg/dL High: >145 mg/dL Ages > or = 20 years When triglycerides are >200 mg/dL, Non-HDL cholesterol is a secondary target of therapy with treatment goals that are 30 mg/dL greater than the LDL cholesterol target. Literature References: 1. Expert Panel on Integrated Guidelines for Cardiovascular Health and Risk Reduction in Children and Adolescents. Pediatrics 2011;128:S213 2. NCEP Expert Panel. Circulation 2004;110:227 Current Interpretive Data was last revised on 2018. Chol/HDL ratio 4 [facility] Blood 03/06/2025 2:17 PM CDT 03/06/2025 6:20 PM CDT us Kevin Hoang MD LAB BLOOD ORDERABLES Final Result [facility] [address] Department [place] [address] * Comprehensive metabolic panel (03/06/2025 2:17 PM CDT) Sodium 142 135 - 145 mmol/L Potassium, pl 3.4 3.3 - 4.9 mmol/L [facility] Chloride 107 97 - 110 mmol/L [facility] CO2 23 22 - 32 mmol/L [facility] Anion gap 12 2 - 15 mmol/L [facility] BUN 14 6 - 25 mg/dL [facility] Creatinine 0.79 0.60 - 1.10 mg/dL [facility] Glucose 95 70 - 199 mg/dL [facility] Comment: Interpretive Data Fasting glucose >/= 126 [...] interpretive data was last revised 2022. Calcium 9.5 8.5 - 10.3 mg/dL [facility] Bilirubin, total 0.4 0.1 - 1.2 mg/dL [facility] Protein, pl 6.8 6.5 - 8.5 g/dL [facility] Albumin 3.7 3.5 - 5.0 g/dL [facility] Alk phos 70 40 - 130 Units/L [facility] ALT 21 7 - 45 Units/L [facility] AST 29 10 - 45 Units/L [facility] Blood 03/06/2025 2:17 PM CDT 03/06/2025 6:20 PM CDT Kevin Hoang MD LAB BLOOD ORDERABLES Final Result Performing Organization Address City/[facility] Co de Phone Number [address] [address] * ALT (03/06/2025 2:11 PM CDT) ALT 20 7 - 45 Units/L Blood Venous blood specimen / Unknown 03/06/2025 2:11 PM CDT 03/06/2025 6:20 PM CDT Torres Carl Jr., DPM LAB BLOOD ORDERABLES F inal Result Performing Organization Address [facility] Co de Phone Number [address] [address] * AST (03/06/2025 2:11 PM CDT) AST 27 10 - 45 Units/L Blood Venous blood specimen / Unknown 03/06/2025 2:11 PM CDT 03/06/2025 6:20 PM CDT us Torres Carl Jr., DPM LAB BLOOD ORDERABLES F inal Result [facility] [id number] Department [place] [address] * XR Knee Bilateral 4 or More Views (01/31/2025 11:11 AM CDT) Anatomical Region Laterality Modality Lower Extremities, Knee Digital Radiography Narrative 01/31/2025 12:19 PM CDT Four views of bilateral knees are negative for acute fracture dislocation or osseous lesion. Moderate arthritic change noted throughout the knee with narrowing in the medial patellofemoral compartments. Minimal osteophyte formations noted. us Luis DICKERSON IMG XR PROCEDURES Final Res ult * TX ARTHROCENTESIS ASPIR&/INJ MAJOR JT/BURSA W/O US (01/31/2025 10:45 AM CDT) Narrative Luis Mancini PA - 01/31/2025 10:45 AM CDT Luis Mancini PA 01/31/2025 12:20 PM Large Joint (Hip, Knee, Shoulder) Injection: bilateral [...] procedure well with no immediate complications us uLis DICKERSON IN CLINIC/BEDSIDE ORDERABLE S Final Result * US Vein Duplex Lower Extremity Bilateral Complete (01/23/2025 2:25 PM CDT) Anatomical Region Laterality Modality Vascular Bilateral Ultrasound 01/23/2025 1:54 PM CDT Narrative 01/24/2025 7:05 AM CDT [facility] [address] [place] [address]. [place] [address] Lower Extremity Venous Report Patient Name: PAULINE CUETO L : 1955 (69y 10m) Gender: F Study Date: 01/23/2025 01:54:38 PM Broadband Installer: LAURA Location: [facility] Order Provider: KEVIN HOANG Quality: Adequate Ref Provider: KEVIN HOANG PROCEDURES: Vascular Report: A non-invasive vascular imaging study of the bilateral lower extremity veins was performed using B-mode ultrasound, color flow, and spectral Doppler. INDICATIONS: R22.43 Localized swelling, mass and lump, lower limb, bilateral. HISTORY: HTN. HLD. COPD. Former smoker. COMPARISONS: No previous exams. FINDINGS: Right: Negative for deep and superficial vein thrombosis in the right lower extremity. Normal compressibility and color filling, spontaneous and phasic flow, and response to distal augmentation is demonstrated in the right common femoral vein, saphenofemoral junction, proximal femoral vein, mid femoral vein, distal femoral vein, profunda vein, popliteal vein, posterior tibial veins, peroneal veins, gastrocnemius veins and soleal veins. Difficult visualization of the peroneal and soleal veins. Left: Negative for deep and superficial vein thrombosis in the left lower extremity. Normal compressibility and color filling, spontaneous and phasic flow, and response to distal augmentation is demonstrated in the left common femoral vein, saphenofemoral junction, proximal femoral vein, mid femoral vein, distal femoral vein, profunda vein, popliteal vein, posterior tibial veins, peroneal veins, gastrocnemius veins and soleal veins. CONCLUSIONS: 1. There is no evidence of deep vein thrombosis in the lower extremities bilaterally. ATTESTATION: I have reviewed and interpreted the pertinent images and measurements of this study. I attest to the conclusions in the final report that is provided above. Electronically Signed By: Leonid Austin MD 01/24/2025 7:04:25 AM CDT Procedure Note Leonid Austin MD - 01/24/2025 [facility] [address] [place] [id number] Lower Extremity Venous Report Patient Name: PAULINE CUETO L : 1955 (69y 10m) Gender: F Study Date: 01/23/2025 01:54:38 PM Broadband Installer: LAURA Location: [facility] Order Provider: KEVIN HOANG Quality: Adequate Ref Provider: KEVIN HOANG PROCEDURES: Vascular Report: A non-invasive vascular imaging study of the bilaterallower extremity veins was performed using B-mode ultrasound, color flow, and spectralDoppler. INDICATIONS: R22.43 Localized swelling, mass and lump, lower limb, bilateral. HISTORY: HTN. HLD. COPD. Former smoker. COMPARISONS: No previous exams. FINDINGS: Right: Negative for deep and superficial vein thrombosis in the rightlower extremity. Normal compressibility and color filling, spontaneous and phasic flow, andresponse to distal augmentation is demonstrated in the right common femoral vein,saphenofemoral junction, proximal femoral vein, mid femoral vein, distal femoral vein,profunda vein, popliteal vein, posterior tibial veins, peroneal veins, gastrocnemiusveins and soleal veins. Difficult visualization of the peroneal and soleal veins. Left: Negative for deep and superficial vein thrombosis in the left lowerextremity. Normal compressibility and color filling, spontaneous and phasic flow, andresponse to distal augmentation is demonstrated in the left common femoral vein,saphenofemoral junction, proximal femoral vein, mid femoral vein, distal femoral vein,profunda vein, popliteal vein, posterior tibial veins, peroneal veins, gastrocnemiusveins and soleal veins. CONCLUSIONS: 1. There is no evidence of deep vein thrombosis in the lower extremitiesbilaterally. ATTESTATION: I have reviewed and interpreted the pertinent images and measurements ofthis study. I attest to the conclusions in the final report that is provided above. Electronically Signed By: Leonid Austin MD 01/24/2025 7:04:25 AM CDT Kevin Hoang MD IMG US PROCEDURES Final Res ult * HM MAMMOGRAPHY (12/25/2023 3:13 PM CDT) Historical Provider HEALTH MAINTENANCE Final Result * Dexa Axial Skeleton Bone Density 1 Or 2 Site (05/11/2021 4:07 PM FINANCE DIRECTOR) Anatomical Region Laterality Modality Body N/A Other 05/12/2021 7:06 AM FINANCE DIRECTOR Impressions 05/12/2021 7:06 AM FINANCE DIRECTOR Normal bone mineral density of the spine and left hip. Electronically signed by: Denise Vail M.D. Narrative 05/12/2021 7:06 AM FINANCE DIRECTOR Examination: Bone densitometry of the lumbar spine [...] by: Denise Vail M.D. Kevin Hoang MD [facility] DXA PROCEDURES Final Re sult * Hepatitis C antibody (04/07/2021 12:00 PM CDT) Pathologist [facility] Hep C Ab Nonreactive Nonreactive JARAD RAMOS [...] 0 PM CDT 04/07/2021 9:05 PM CDT us Kevin Hoang MD LAB MICROBIOLOGY - GENERAL ORDERABLES Final Result Performing Organization Address City/State/[facility] Phone Number JARAD [phone] [place] [address] * HM COLONOSCOPY (05/24/2016) us Historical Provider HEALTH MAINTENANCE Final Result from Last 3 Months or Most Recently Relevant to Health Maintenance Insurance [facility] MDCR HMO REF [facility] MEDICARE ADVANTAGE [facility] MEDICARE ADVANTAGE Advance Directives For more information, please contact: [phone] * Full Code (Latest Code Status on File) Date Activated Date Inactivated Comments 10/28/2024 1:21 PM 10/31/2024 12:27 AM * Full Code Date Activated Date Inactivated Comments 09/20/2021 5:38 PM 09/22/2021 9:03 PM Care Teams Vending Route Driver Relationship Specialty Start Date End Date Kevin Hoang MD [address] [facility] [address] [place] [address] PCP - General Family Medicine 07/25/22 Luisito Conrad MD [address] [place] [address] Consulting Physician Ophthalmology 04/07/21 Audie Escalera MD [address] [place] [address] DR VILLALOBOS B [facility] [address] [place] [address] Surgeon Orthopedic Surgery 11/07/22 Robinson Iyer MD [address] [facility] [address] VILLALOBOS B [facility] [address] [place] [address] Consulting Physician General Surgery 11/07/22 Wilian Menard MD [address] [facility] [address] [place] [address] Referring Physician Critical Care Med 11/28/24
[2025-04-18 13:58] VITALS: BP 170/97; PULSE 83; RESP 18; TEMP 36.6; O2SAT 100
--- NOTE | 2025-04-18 14:04 | ECG_ITS ---
Test Date: 2025-04-18 14:08:55 Measurements Intervals [place] Rate: 79 P: 48 MT: 172 QRS: 30 QRSD: 75 T: 17 QT: 368 QTc: 424 Interpretive Statements SINUS RHYTHM POSSIBLE LEFT ATRIAL ENLARGEMENT BORDERLINE ST-T WAVE ABNORMALITY- INFERIOR LEADS BASELINE ARTIFACT- I, II, III, AVR, AVL, AVF, V1 BORDERLINE ECG No previous ECG available for comparison Electronically Signed On 04-18-2025 14:49:09 CDT by Denver Giron D.O.
[2025-04-18 14:27] LABS: Hematocrit 36.7 % (37.0-47.0); Hemoglobin 11.8 g/dL (12.0-15.0); Immature Granulocyte Percent A 0.2 % (0-0.5); Lymphocytes Absolute Auto 2.30 K/mm3 (0.9-3.2); Mean Corpuscular HGB Conc 32.2 g/dl (32-36); Mean Corpuscular Hemoglobin 30.7 pg (26-34); Mean Corpuscular Volume 95.6 fl (80-100); Nucleated Red Blood Cells Absolute Auto 0.000 K/mm3 (0.0-0.012); Nucleated Red Blood Cells Perc 0.0 % (0.0-0.2); Platelet Count Result 260 k/mm3 (150-375); Red Blood Count 3.84 M/mm3 (4.2-5.4); White Blood Count 6.1 K/mm3 (4.5-10.0)
[2025-04-18 14:52] LABS: Alanine Aminotransferase 21 U/L (6-35); Albumin Level 4.2 g/dL (3.5-5.1); Alkaline Phosphatase 84 U/L (38-126); Anion Gap 6 mmol/L (4-12); Aspartate Amino Transferase 34 U/L (14-36); Bilirubin,Total 0.4 mg/dL (0.2-1.3); Blood Urea Nitrogen 10 mg/dL (7-17); Calcium 9.4 mg/dL (8.4-10.2); Carbon Dioxide 24 mmol/L (22-30); Chloride 109 mmol/L (98-107); Estimated Glomerular Filt Rate > 60; Glucose 85 mg/dL (65-110); Potassium 4.0 mmol/L (3.4-5.0); Sodium 139 mmol/L (137-145); Total Protein 7.7 g/dL (6.3-8.2)
--- NOTE | 2025-04-18 16:44 | ED.SOB ---
HPI - SOB/Dyspnea General Chief Complaint: Shortness of Breath/Dyspnea Stated Complaint: SOB Time Seen by Provider: 04/18/25 16:42 Source: patient and EMS Mode of arrival: EMS Limitations: no limitations History of Present Illness HPI Narrative: 70 YEARS OLD FEMALE CAME TO THE ED BY AMBULANCE FROM HOME COMPLAINING OF INTERMITTENT DIZZINESS, FOGGY BRAIN, LATER FOLLOWED BY SOME SHORTNESS OF BREATH WHICH RESOLVED ON ARRIVAL TO THE ED. PATIENT REPORTS THAT HER BLOOD PRESSURE WAS ELEVATED AT HOME. PATIENT WAS SEEN BY HER FAMILY PHYSICIAN 2 DAYS AGO FOR SIMILAR SYMPTOMS NOON PATIENT ON HOME OXYGEN 2 L BY NASAL CANNULA AT NIGHT. CURRENTLY PATIENT IS ASYMPTOMATIC EXCEPT EMOTIONAL, ANTERIOR FALL. PATIENT LIVES ALONE. HISTORY OF DEPRESSION, ANXIETY, INSOMNIA, DIABETES, HYPERTENSION, HYPERLIPIDEMIA, COPD. SHE DENIES ANY FEVER OR CHILLS OR NAUSEA OR VOMITING OR CHEST PAIN. Related Data Home Medications ?Medication ?Instructions ?Recorded ?Confirmed ?Last Taken ?Type atorvastatin 20 mg tablet 20 mg PO QHS 12/08/20 08/20/24 Unknown History famotidine 40 mg tablet 40 mg PO DAILY 07/31/24 08/20/24 Unknown History metformin 500 mg tablet 500 mg PO DAILY 07/31/24 08/20/24 Unknown History Allergies Allergy/AdvReac Type Severity Reaction Status Date / Time codeine Allergy Unknown Unknown Verified 12/31/24 14:51 venom-honey bee Allergy Unknown Unknown Verified 12/31/24 14:51 Review of Systems Review of Systems: All systems reviewed & are unremarkable except as noted in HPI and below PMFSH Past Medical History Medical History Dysphagia GERD (gastroesophageal reflux disease) Hiatal hernia Obesity (BMI 30.0-34.9) Osteopenia after menopause History of ITP Abdominal adhesions Surgical History Surgical History History of splenectomy Family History Family History Mother Family history of glaucoma Hypertension Father Hypertension Family history of cardiovascular disease Malignant neoplasm of prostate Social History Social History Smoking status: Former smoker Smoking end date: 06/19/86 Alcohol intake: current Do You Feel Safe in your Home?: Yes Lack of Transportation: No Lack of Food: Never True Current Housing: I Have Housing Concerned About Future Housing: No Difficulty Paying Gas/Electric Bills: No Difficulty Paying for Meds: No Education: Don't Know Difficulty w/ Childcare or Family Care: No Exam Narrative: GENERAL APPEARANCE: WELL-DEVELOPED, WELL-NOURISHED, TEARFUL SKIN: NORMAL COLOR HEAD: NORMOCEPHALIC, NONTRAUMATIC EYES: CLEAR CONJUNCTIVA ENT: OROPHARYNX NORMAL, EARS NORMAL, NOSE NORMAL NECK: SUPPLE, NONTENDER CHEST AND RESPIRATORY: AIRWAY PATENT, NO RESPIRATORY DISTRESS, NO ACCESSORY MUSCLE USE HEART: REGULAR RATE/RHYTHM ABDOMEN: SOFT, NONTENDER, NO ORGANOMEGALY, QUIET BOWEL SOUNDS VASCULAR: NORMAL PERIPHERAL PULSES, NORMAL CAPILLARY REFILL. NEUROLOGIC: ALERT AND ORIENTED ?3, TUNNEL HEADING SUPERVISOR IS NORMAL TESTED, NO GROSS MOTOR DEFICIT Course Vital Signs Vital signs: Vital Signs Temperature 36.6 C 04/18/25 13:58 Pulse Rate 83 04/18/25 13:58 Respiratory Rate 18 04/18/25 13:58 Blood Pressure 170/97 H 04/18/25 13:58 Pulse Oximetry 100 04/18/25 13:58 Oxygen Delivery Room Air 04/18/25 13:58 Temperature 36.6 C 04/18/25 13:58 Pulse Rate 83 04/18/25 13:58 Respiratory Rate 18 04/18/25 13:58 Blood Pressure 170/97 H 04/18/25 13:58 Pulse Oximetry 100 04/18/25 13:58 Oxygen Delivery Room Air 04/18/25 13:58 MDM - SOB/Dyspnea MDM Narrative Medical decision making narrative: PATIENT CAME WITH MULTIPLE SYMPTOMS VITAL SIGNS SHOWING BLOOD PRESSURE 170/97 OTHERWISE WITHIN NORMAL LIMIT PHYSICAL EXAMINATION SHOWING EMOTIONAL, DEPRESSED, TEARFUL PATIENT DIFFERENTIAL DIAGNOSIS INCLUDE ANXIETY LIKE SYMPTOMS, DEPRESSION, ELECTROLYTE IMBALANCE, DEHYDRATION, UNCONTROLLED HYPERTENSION BLOOD WORKUP TODAY INCLUDES CBC, CMP, TROPONIN SHOWED NO SIGNIFICANT ABNORMALITIES EKG SHOWED NORMAL SINUS RHYTHM AT 79 BEATS PER MINUTE, LEFT ATRIAL ENLARGEMENT, BORDERLINE ST T-WAVE ABNORMALITY, BORDERLINE EKG, NO PREVIOUS EKG AVAILABLE FOR COMPARISON CHEST X-RAY SHOWED NO ACUTE ABNORMALITY PATIENT RECEIVED 1 MG OF ATIVAN P.O., BLOOD PRESSURE IMPROVED DOWN TO 164/87, PATIENT FEELING MUCH BETTER, ASYMPTOMATIC. DIAGNOSIS ANXIETY/DEPRESSION LIKE SYMPTOMS, HYPERTENSION THE PT WAS DISCHARGED TO HOME.THE PT,S CONDITION UPON DISCHARGE WAS FAIR,EDUCATION WAS PROVIDED TO THE PT IN REFERENCE TO THE FINAL IMPRESSION,DISCHARGE STUDY RESULTS,TREATMENT,PROGNOSIS AND NEED FOR FOLLOW UP . Differential Diagnosis Differential diagnosis: Likely other ( ABOVE) Medical Records Attestation: I reviewed the patient's medical records. Lab Data Attestation: I reviewed the patient's lab results. 04/18/25 14:22 04/18/25 14:22 Labs: Lab Results 04/18/25 04/18/25 Range/Units 14:22 18:21 WBC 6.1 (4.5-10.0) K/mm3 RBC 3.84 L (4.2-5.4) M/mm3 Hgb 11.8 L (12.0-15.0) g/dL Hct 36.7 L (37.0-47.0) % MCV 95.6 (80-100) fl MCH 30.7 (26-34) pg MCHC 32.2 (32-36) g/dl RDW 16.7 H (11.5-14.5) % Plt Count 260 (150-375) k/mm3 MPV 11.1 H (7.4-10.4) fl Immature Gran % (Auto) 0.2 (0-0.5) % Neut % (Auto) 46.9 (45.5-73.1) % Lymph % (Auto) 37.5 (18.3-44.2) % Sibley % (Auto) 10.9 H (2.6-8.5) % Eos % (Auto) 3.7 (0-4.4) % Baso % (Auto) 0.8 (0.2-1.2) % Lymph # (Auto) 2.30 (0.9-3.2) K/mm3 Sibley # (Auto) 0.7 H (0.1-0.6) K/mm3 Eos # (Auto) 0.2 (0-0.3) K/mm3 Baso # (Auto) 0.1 (0.0-0.1) K/mm3 Abs Immat Gran (auto) 0.01 (0.00-0.031) K/mm3 Absolute Neuts (auto) 2.9 (1.3-6.7) K/mm3 Absolute Nucleated RBC 0.000 (0.0-0.012) K/mm3 Nucleated RBC % 0.0 (0.0-0.2) % PT 13.5 (11.1-14.7) Seconds INR 1.0 APTT 33.5 (22.3-36.8) Seconds Sodium 139 (137-145) mmol/L Potassium 4.0 (3.4-5.0) mmol/L Chloride 109 H (98-107) mmol/L Carbon Dioxide 24 (22-30) mmol/L Anion Gap 6 (4-12) mmol/L BUN 10 (7-17) mg/dL Creatinine 0.64 L (0.7-1.0) mg/dL Estim Creat Clear Calc Not Reportable Estimated GFR > 60 (59 - ) Glucose 85 (65-110) mg/dL Calcium 9.4 (8.4-10.2) mg/dL Total Bilirubin 0.4 (0.2-1.3) mg/dL AST 34 (14-36) U/L ALT 21 (6-35) U/L Alkaline Phosphatase 84 (38-126) U/L Troponin I < 0.012 (0.000-0.034) ng/mL NT-Pro-B Natriuret Pep 137 H (19.9-100) pg/mL Total Protein 7.7 (6.3-8.2) g/dL Albumin 4.2 (3.5-5.1) g/dL ABG Data ABG results: 04/18/25 17:19 Puncture Site Right radial ABG pH 7.444 ABG pCO2 35.2 ABG pO2 86.3 ABG PO2/FiO2 Ratio 4.11 ABG HCO3 23.6 ABG O2 Saturation 96.9 ABG O2 Content 16.8 ABG Base Excess -0.1 A-a Gradient 21.3 Oxyhemoglobin 96.4 Total Hemoglobin 12.3 O2 Delivery Device Room air O2 Liters/Min Not Reportable FiO2 21 Imaging Data Radiologist's impression: Impressions Chest X-Ray 04/18/25 15:26 IMPRESSION: No acute findings. Critical Care Time Critical Care Time Critical Care Time: No Discharge Plan Discharge Clinical Impression: Anxiety, Hypertension Patient Disposition: Home Condition: Improved Instructions: Hypertension (ED), Anxiety (ED) Additional Instructions: RETURN IF SYMPTOMS ARE WORSENING , CALL YOUR FAMILY PHYSICIAN FOR APPOINTMENT, TAKE TYLENOL NEEDED FOR ACHES AND PAIN, CONTINUE HOME MEDICATIONS. Patient Language: Kuwaiti Prescriptions: No Action famotidine 40 mg tablet 40 mg PO DAILY metformin 500 mg tablet 500 mg PO DAILY atorvastatin 20 mg tablet 20 mg PO QHS montelukast 10 mg tablet See Rx Instructions .ROUTE .COMPLEX Qty: 90 3RF Dose Instruction: TAKE 1 TABLET BY MOUTH EVERYDAY AT BEDTIME Rx Instructions: TAKE 1 TABLET BY MOUTH EVERYDAY AT BEDTIME azelastine 137 mcg (0.1 %) aerosol,spray See Rx Instructions .ROUTE .COMPLEX Qty: 30 3RF Dose Instruction: PLACE 1 SPRAY IN EACH NOSTRIL EVERY 12 HOURS Rx Instructions: PLACE 1 SPRAY IN EACH NOSTRIL EVERY 12 HOURS alprazolam [Xanax] 0.25 mg tablet 0.25 mg PO BID PRN (Reason: anxiety) Qty: 60 5RF albuterol sulfate [ProAir HFA] 90 mcg/actuation HFA aerosol inhaler 2 puff inhalation Q4H PRN (Reason: shortness of breath or wheezing) Qty: 8.5 2RF lisinopril-hydrochlorothiazide 20-12.5 mg tablet See Rx Instructions .ROUTE .COMPLEX Qty: 180 3RF Dose Instruction: TAKE 1 TABLET BY MOUTH TWICE A DAY Rx Instructions: TAKE 1 TABLET BY MOUTH TWICE A DAY fluticasone propionate 50 mcg/actuation spray,suspension See Rx Instructions .ROUTE .COMPLEX Qty: 48 3RF Dose Instruction: SPRAY 2 SPRAYS INTO EACH NOSTRIL EVERY DAY Rx Instructions: SPRAY 2 SPRAYS INTO EACH NOSTRIL EVERY DAY verapamil 120 mg tablet 120 mg PO BID Qty: 60 0RF Rx Instructions: LAST REFILL UNTIL SEEN sertraline 50 mg tablet 100 mg PO DAILY Qty: 60 0RF Rx Instructions: LAST REFILL UNTIL SEEN Trelegy Ellipta 200-62.5-25 mcg blister with device See Rx Instructions .ROUTE .COMPLEX Qty: 60 5RF Dose Instruction: INHALE 1 PUFF BY MOUTH DAILY RINSE MOUTH AND SPIT AFTER EACH USE Rx Instructions: INHALE 1 PUFF BY MOUTH DAILY RINSE MOUTH AND SPIT AFTER EACH USE Follow-up/Referrals: Natalya,Kevin Hayes MD [Primary Care Provider, Unknown]
--- NOTE | 2025-04-18 16:45 | ECG_ITS ---
Test Date: 2025-04-18 17:05:53 Measurements Intervals [place] Rate: 91 P: 67 PA: 174 QRS: 48 QRSD: 84 T: -1 QT: 362 QTc: 446 Interpretive Statements SINUS RHYTHM POSSIBLE LEFT ATRIAL ENLARGEMENT BORDERLINE ST-T WAVE ABNORMALITY- ANTEROLAT/INF LEADS BASELINE ARTIFACT- I, II, III, AVR, AVL, AVF, V1-V6 BORDERLINE ECG Compared to ECG 04/18/2025 14:08:55 NO SIGNIFICANT CHANGE Electronically Signed On 04-18-2025 20:07:30 CDT by Denver Giron D.O.
--- OUTSIDE RECORDS SUMMARY | 2025-04-18 17:05 | XMS_ITS | Encounter Summary ---
Author Organization [facility] Healthcare Address [address] [place] [address] Care Team Providers Care Vessel Crew Member Name Role Phone Luisito Conrad MD Unavailable Kevin Hoang MD Primary Care Provider Audie Escalera MD Unavailable [phone] Robinson Iyer MD Unavailable Wilian Menard MD Unavailable [phone] Reason for Visit * Reason Onset Date Comments Facial Swelling 04/17/2025 Encounter Details Date Type Department Care Team (Late st Contact Info) Description 04/17/2025 Nurse Triage [facility] Medical Group Primary Care at [address] [address] Ekaterina Ontiveros, BOLA Social History Tobacco Use Types Packs/Day Years Used Date Smoking Tobacco: Former Cigarettes 1 10 0 06/19/1971 - 1981 Smokeless Tobacco: Never Alcohol Use Standard Drinks/Week Comments Never 0 (1 standard drink = 0.6 oz pur e alcohol) [facility] Utilities Answer Date Recorded In the past [...] often do you attend chur ch or sikh services? Never 10/29/2024 Do you belong to any clubs o r organizations such as orthodox groups, unions, fraternal or athletic groups, or [...] any time in the past 12 m [facility], were you homeless or living in a fci (including now)? 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 Not on file Not [...] benazepril/LOTENSIN, captopril/CAPOTEN, enalapril/VASOTEC, lisinopril/ZESTRIL) Protocols Used Face [id number] * Telephone Encounter - Sarai Sanabria RN [...] 04/17/2025 added in this encounter Care Teams Vessel Crew Member Relationship Specialty Start Date End Date Kevin Hoang MD [address] [facility] [address] [place] [address] PCP - General Family Medicine 07/25/22 Luisito Conrad MD [address] [place] [address] Consulting Physician Ophthalmology 04/07/21 Audie Escalera MD [address] [facility] [address] GRISELDA Lenz [facility] [address] [place] [address] Surgeon Orthopedic Surgery 11/07/22 Robinson Iyer MD [address] [place] [address] DR GRISELDA Lenz [facility] [address] [place] [address] Consulting Physician General Surgery 11/07/22 Wilian Menard MD [address] [place], [place] [address] Referring Physician Critical Care Med 11/28/24 documented as of this encounter
--- OUTSIDE RECORDS SUMMARY | 2025-04-18 17:05 | XMS_ITS | Encounter Summary ---
Author Organization [facility] Address [address] [place] [address] Phone Care Team Providers Care Aircraft Armorer Name Role Phone Wilian Belle MD Primary Care Provider [phone] Luisito Conrad MD Unavailable [phone] Kevin Hoang MD Primary Care Provider [phone] Kalee Morelos CMA Unavailable [phone] Kevin Hoang MD Primary Care Provider [phone] Audie Escalera MD Unavailable [phone] Robinson Iyer MD Unavailable Wilian Menard MD Unavailable [phone] Encounter Details Date Type Department Care Team (Latest Contact Info) Description 11/06/2017 Orders Only [facility] Scanning, Provider Social History Tobacco Use Types Packs/Day Years Used Date Smoking Tobacco: Never Assessed Comments Unknown Sex and Gender Information Value Date Recorded Sex Assigned at Not on file Legal Sex Female 3:37 AM HOSPICE ART THERAPIST Gender Identity Not on file Sexual Orientation [...] COVID: Suspected 05/10/2021 05/10/2021 05/10/2021 4:19 PM HOSPICE ART THERAPIST documented as of this encounter Care Teams Aircraft Armorer Relationship Specialty Start Date End Date Wilian Belle MD PCP - General Family Medicine 07/27/18 04/06/21 [place] [address] [place] [address] PCP - General Family Medicine 04/07/21 07/24/22 Kevin Hoang MD [address] [place] [address] [address] [place] [address] PCP - General Family Medicine 07/25/22 [place] [address] [place] [address] Consulting Physician Ophthalmology 04/07/21 Kalee Morelos, [facility] [address] [facility] [address] [place] [address] ACO Care Shot Bagger 09/27/21 09/27/21 Audie Escalera MD [address] [place] [address] [address] [place] [address] Surgeon Orthopedic Surgery 11/07/22 Robinson Iyer MD [address] [facility] [address] [place] [address] Consulting Physician General Surgery 11/07/22 Wilian Menard MD [address] [place] [address] Referring Physician Critical Care Med 11/28/24 documented as of this encounter
--- OUTSIDE RECORDS SUMMARY | 2025-04-18 17:05 | XMS_ITS | Encounter Summary ---
Author Organization [facility] Healthcare Address [address] [place] [address] Care Team Providers Care Director Of Sustainable Design Name Role Phone Luisito Conrad MD Unavailable [phone] Kevin Hoang MD Primary Care Provider Audie Escalera MD Unavailable Robinson Iyer MD Unavailable Wilian Menard MD Unavailable Reason for Visit * Reason Onset Date Comments Med Refill 04/16/2025 Encounter Details Date Type Department Care Team (Late st Contact Info) Description 04/16/2025 Telephone [facility] Medical Group Primary Care at [place] [address] [place] [address] Kevin Hoang MD [address] [place] [address] [address] [place] [address] Med Refill Social History Tobacco Use Types Packs/Day Years Used Date Smoking Tobacco: Former Cigarettes 1 10 0 06/19/1971 - 1981 Smokeless Tobacco: Never Alcohol Use Standard Drinks/Week Comments Never 0 (1 standard drink = 0.6 oz pur e alcohol) [facility] Utilities Answer Date Recorded In [...] often do you attend chur ch or holiness services? Never 10/29/2024 Do you belong to [...] time in the past 12 m [facility], were you homeless or living in a long-term (including now)? 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 on file Not [...] on filedocumented in this encounter Care Teams Director Of Sustainable Design Relationship Specialty Start Date End Date Kevin Hoang MD [address] [facility] [address] [place] [address] PCP - General Family Medicine 07/25/22 Luisito Conrad MD [address] [place] [address] Consulting Physician Ophthalmology 04/07/21 Audie Escalera MD [address] [facility] [address] GRISELDA Lenz [facility] [address] [place] [address] Surgeon Orthopedic Surgery 11/07/22 Robinson Iyer MD [address] [place] [address] DR GRISELDA Lenz [facility] [address] [place] [address] Consulting Physician General Surgery 11/07/22 Wilian Menard MD [address] [facility] [address] [place] [address] Referring Physician Critical Care Med 11/28/24 documented as of this encounter
--- OUTSIDE RECORDS SUMMARY | 2025-04-18 17:05 | XMS_ITS | Encounter Summary ---
Author Organization [facility] Healthcare Address [address] [place] [address] Care Team Providers Care Energy Conservation Representative Name Role Phone Luisito Conrad MD Unavailable [phone] Kevin Hoang MD Primary Care Provider Audie Escalera MD Unavailable [phone] Robinson Iyer MD Unavailable Wilian Menard MD Unavailable Encounter Details Date Type Department Care Team (Late st Contact Info) Description 04/18/2025 Telephone [facility] Medical Group Primary Care at [place] [address] [place] [address] Kevin Hoang MD [address] [facility] [address] [place] [address] Social History Tobacco Use Types Packs/Day Years Used Date Smoking Tobacco: Former Cigarettes 1 10 0 06/19/1971 - 1981 Smokeless Tobacco: Never Alcohol Use Standard Drinks/Week Comments Never 0 (1 standard drink = 0.6 oz pur e alcohol) [facility] Utilities Answer Date Recorded In [...] often do you attend chur ch or sabianist services? 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 on file Not on file documented as of this encounter Plan of Treatment Not on file documented as of this encounter Visit Diagnoses Not on filedocumented in this encounter Care Teams Energy Conservation Representative Relationship Specialty Start Date End Date Kevin Hoang MD [address] [address] PCP - General Family Medicine 07/25/22 Luisito Conrad MD [address] [place] [address] Consulting Physician Ophthalmology 04/07/21 Audie Escalera MD [address] [facility] [address] GRISELDA Lenz [facility] [address] [place] [address] Surgeon Orthopedic Surgery 11/07/22 Robinson Iyer MD [address] [facility] [address] GRISELDA Lenz [facility] [address] [place] [address] Consulting Physician General Surgery 11/07/22 Wilian Menard MD [address] [place] [address] Referring Physician Critical Care Med 11/28/24 documented as of this encounter
--- OUTSIDE RECORDS SUMMARY | 2025-04-18 17:05 | XMS_ITS | Encounter Summary ---
Author Organization [facility] Healthcare Address [address] [place] [address] Care Team Providers Care Director Of Dementia Operations Name Role Phone Luisito Conrad MD Unavailable [phone] Kevin Hoang MD Primary Care Provider Audie Escalera MD Unavailable [phone] Robinson Iyer MD Unavailable Wilian Menard MD Unavailable Reason for Visit * Reason Onset Date Comments Hypertension 04/18/2025 Encounter Details Date Type Department Care Team (Late st Contact Info) Description 04/18/2025 Nurse Triage [facility] Primary Care at [place] [address] [place] [address] Kevin Hoang MD [address] [place] [address] [address] [place] [address] Social History Tobacco Use Types [...] often do you attend chur ch or islam services? Never 10/29/2024 Do you belong to any clubs o r organizations such as protestant groups, unions, fraternal or athletic groups, or [...] any time in the past 12 m [facility], were you homeless or living in a retirement (including now)? 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 Spoke with food service assistant yesterday and Dr. Hoang was contacted and [...] in this encounter Care Teams Director Of Dementia Operations Relationship Specialty Start Date End Date Kevin Hoang MD [address] [facility] [address] [place], [place] [id number] PCP - General Family Medicine 07/25/22 Luisito Conrad MD [address] [place] [address] Consulting Physician Ophthalmology 04/07/21 Audie Escalera MD [address] [place] [address] [address] [place] [address] Surgeon Orthopedic Surgery 11/07/22 Robinson Iyer MD [address] [facility] [address] [place] [address] Consulting Physician General Surgery 11/07/22 Wilian Menard MD [address] [place] [address] Referring Physician Critical Care Med 11/28/24 documented as of this encounter
--- OUTSIDE RECORDS SUMMARY | 2025-04-18 17:05 | XMS_ITS | Encounter Summary ---
Author Organization [facility] Healthcare Address [address] [place] [address] Care Team Providers Care Residential Support Specialist Name Role Phone Luisito Conrad MD Unavailable [phone] Kevin Hoang MD Primary Care Provider Audie Escalera MD Unavailable Robinson Iyer MD Unavailable Wilian Menard MD Unavailable Reason for Visit * Reason Onset Date Comments Test Results 04/04/2025 04/03/25 Transth oracic Echo (TTE) Complete W Doppler/CF WO Contrast Encounter Details Date Type Department Care Team (Late st Contact Info) Description 04/04/2025 Results Follow-Up [facility] Medical [facility] Primary Care at [address] [address] Kevin Hoang MD [address] [place] [address] [address] [place] [address] Transthoracic Echo (TTE) Complete W Doppler/CF Social History Tobacco Use Types Packs/Day Years Used Date Smoking Tobacco: Former Cigarettes 1 10 0 06/19/1971 - 1981 Smokeless Tobacco: Never Alcohol Use Standard Drinks/Week Comments Never 0 (1 standard drink = 0.6 oz pur e alcohol) [facility] Utilities Answer Date Recorded In the [...] often do you attend chur ch or restorationist services? 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 Test Result Request Type of test: Transthoracic Echo (TTE) Complete W Doppler/CF WO Contrast Date of test: 04/03/25 Where was the test performed at?[facility] Cardiology Did provider dictate result [...] on filedocumented in this encounter Care Teams Residential Support Specialist Relationship Specialty Start Date End Date Kevin Hoang MD [address] [facility] [address] [place] [address] PCP - General Family Medicine 07/25/22 Luisito Conrad MD [address] [place] [address] Consulting Physician Ophthalmology 04/07/21 Audie Escalera MD [address] [place] [address] DR GRISELDA Lenz [address] [address] Surgeon Orthopedic Surgery 11/07/22 Robinson Iyer MD [address] [place] [address] DR GRISELDA Lenz [facility] [address] [place] [address] Consulting Physician General Surgery 11/07/22 Wilian Menard MD [address] [place] [address] Referring Physician Critical Care Med 11/28/24 documented as of this encounter
--- OUTSIDE RECORDS SUMMARY | 2025-04-18 17:05 | XMS_ITS | Encounter Summary ---
Author Organization [facility] Healthcare Address [address] [place] [address] Care Team Providers Care Oversize Load Pilot Escort Name Role Phone Luisito Conrad MD Unavailable [phone] Kevin Hoang MD Primary Care Provider Audie Escalera MD Unavailable Robinson Iyer MD Unavailable Wilian Menard MD Unavailable [phone] Encounter Details Date Type Department Care Team (Late st Contact Info) Description 12/05/2022 Telephone [facility] [address] [place] [address] Coreen Gonzalez, BOLA Social History Tobacco Use Types Packs/Day [...] on file Legal 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 Gender Identity Not on file Sexual Orientation Not on file 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 Not on file Not on file documented as of this encounter Plan of Treatment Not on file documented as of this encounter Visit Diagnoses Not on filedocumented in this encounter Care Teams Oversize Load Pilot Escort Relationship Specialty Start Date End Date Kevin Hoang MD [address] [facility] [address] [place] [address] PCP - General Family Medicine 07/25/22 Luisito Conrad MD [facility] [place] [address] Consulting Physician Ophthalmology 04/07/21 Audie Escalera MD [address] [place] [address] [address] GRISELDA Lenz [address] [place] [address] Surgeon Orthopedic Surgery 11/07/22 Robinson Iyer MD [address] [place] [address] [address] GRISELDA Lenz [address] [place] [address] Consulting Physician General Surgery 11/07/22 Wilian Menard MD [address] [place] [address] Referring Physician Critical Care Med 11/28/24 documented as of this encounter
--- OUTSIDE RECORDS SUMMARY | 2025-04-18 17:05 | XMS_ITS | Clinical Summary ---
Author Organization [facility] Address [address] [place] [address] Care Team Providers Care Cardroom Attendant Name Role Phone Luisito Conrad MD Unavailable [phone] Kevin Hoang MD Primary Care Provider [...] 05/22/2024 Assessment & Plan (05/22/2024 11:47 AM HAM STRIPPER): -Recommended: Healthy diet. Avoiding junk food/fast food. [...] 06/01/2023 Assessment & Plan (05/22/2024 11:46 AM HAM STRIPPER): Stable on current medication. Continue sertraline 100mg as ordered. May follow up in 6 months Also uses amitriptyline 10mg at bedtime for sleep Memory loss 11/11/2022 Class 2 severe obesity due t o excess calories with serious comorbidity and body mass index (BMI) of 36.0 to 36.9 in adult 01/07/2022 Assessment & Plan (05/24/2024 10:39 PM HAM STRIPPER): BMI Follow-up includes: exercise counseling. Assessment & Plan (11/15/2023 10:35 AM CDT): BMI Follow-up includes: nutrition counseling, exercise counseling, and education provided. Assessment & Plan (05/10/2023 10:58 AM HAM STRIPPER): BMI Follow-up includes: nutrition counseling, exercise counseling, [...] completion. Assessment & Plan (08/19/2021 1:48 PM HAM STRIPPER): Outside of the shortness of breath, which [...] 04/28/2021 Assessment & Plan (04/28/2021 10:08 AM HAM STRIPPER): I'm not convinced serious injury; we will treat conservatively for a week, with ibuprofen 600-800 mg every 8 hours as needed, ice and heat to the tender area 3- 4 times a day, 20 min's per. Xray will be held in abeyance unless not improving through the week. Let us know Allergic rhinitis 04/07/2021 Assessment & Plan (08/10/2022 11:34 AM HAM STRIPPER): Nasal saline spray (Simply saline, Little Remedies, Numidia, Burna) 2 second sprays or 2 squeezes into [...] 10/16/2020 Assessment & Plan (05/22/2024 11:45 AM HAM STRIPPER): Stable/ Improved. Blood pressure is adequately controlled on lisinopril (Prinivil) and hydrochlorothiazide, verapamil . We will not make any medication changes today. Will have her follow-up in 6 months for continued monitoring and management Assessment & Plan (05/12/2023 2:28 PM HAM STRIPPER): Continuing verapamil, lisinopril-hct Labs ordered for next visit Discussed herbals. Might look into turmeric, krill oil with hyaluronic acid (e.g Solomon-Red), collagen joint supplement Continue good exercise practice, but don't push too far beyond tolerance. 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 Pharmacotherapy as ordered.- atorvastatin Lipids will be reassessed in 6 months. 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 Due to proximity Assessment & Plan (12/12/2023 [...] 05/22/2024 Assessment & Plan (08/11/2022 12:49 PM HAM STRIPPER): Pepcid 40 mg at bedtime Chronic maxillary sinusitis 07/05/2022 05/22/2024 Assessment & Plan (07/05/2022 12:05 PM HAM STRIPPER): Nasal saline spray (Simply saline, Little Remedies, Numidia, Burna) 2 second sprays or 2 squeezes into [...] (08/24/2021): Added automatically from request for surgery [id number] Assessment & Plan (10/07/2021 10:53 AM CDT): [...] 12/03/2024 Assessment & Plan (07/30/2024 10:54 AM HAM STRIPPER): I do not fully appreciate any fascial [...] plan. Assessment & Plan (07/23/2024 11:48 AM HAM STRIPPER): Not having pain, but it's inhibiting movement [...] week) Assessment & Plan (08/19/2021 1:46 PM HAM STRIPPER): The patient has multiple fascial defects along [...] on echocardiogram, [facility] not [facility] Weight loss and increase exercise Encounters Date Type Department Care Team Description 04/18/2025 Nurse Triage [facility] Medical Group Primary Care at [address] [phone] Kevin Hoang MD 04/18/2025 Telephone [facility] Primary Care at [address] [phone] Kevin Hoang MD 04/17/2025 Nurse Triage [facility] Primary Care at [address] [phone] Ekaterina Ontiveros, BOLA 04/16/2025 Telephone [facility] Primary Care at [address] [phone] Kevin Hoang MD Med Refill 04/10/2025 Orders Only [facility] Primary Care at [address] [phone] Kevin Hoang MD 04/08/2025 Telephone [facility] Primary Care at [address] [phone] Cate Fernandez MA compression stockings 04/08/2025 Telephone [facility] Primary Care at [address] [phone] Kevin Hoang MD Med Refill 04/04/2025 Results Follow-Up [facility] Primary Care at [address] [phone] Kevin Hoang MD Transthoracic Echo (TTE) Complete W Doppler/CF 04/03/2025 2:00 PM CDT Ancillary Procedure [facility] Cardiology at [address] [place] [address] Diastolic dysfunction; Edema of both lower extremities due to peripheral venous insufficiency 03/28/2025 11:45 AM CDT Office Visit [facility] Primary Care at [address] [phone] Kevin Hoang MD Diastolic dysfunction (Primary Dx); Edema of both lower extremities due to peripheral venous insufficiency; Anxiety disorder with panic attacks; Recurrent major depressive disorder, in partial remission; Lipedema of lower extremity 03/27/2025 Nurse Triage [facility] Primary Care at [address] [phone] Kevin Hoang MD 03/24/2025 Therapy [facility] Sports Medicine and Primary Care at [address] [place] [address] Kenia Waddell MA Primary osteoarthritis of both knees (Primary Dx); Edema of both lower extremities due to peripheral venous insufficiency 03/21/2025 11:30 AM CDT Office Visit [facility] Primary Care at [address] [phone] Kevin Hoang MD Edema of both lower extremities due to peripheral venous insufficiency (Primary Dx); Encounter for screening mammogram for malignant neoplasm of breast; Screening for osteoporosis; Asymptomatic menopausal state; Need for vaccination 03/21/2025 Telephone [facility] Primary Care at [address] [phone] Kevin Hoang MD Lab Results 03/20/2025 Telephone [facility] Primary Care at [address] [phone] Kevin Hoang MD Medical Records Request 03/06/2025 2:15 PM CDT Lab [address] [address] Essential hypertension; Class 2 severe obesity due to excess calories with serious comorbidity and body mass index (BMI) of 36.0 to 36.9 in adult (HCC); Mixed hyperlipidemia 03/06/2025 2:00 PM CDT Lab [address] [address] Dermatophytosis of nail (Primary Dx) 02/28/2025 10:45 AM CDT Office Visit [facility] Cardiology at [address] [place] [address] Wilian Foy MD Essential hypertension (Primary Dx) 02/28/2025 Telephone [facility] Cardiology [address] [address] [address] [place] [address] Brisa Nixon MA Torsemide 02/27/2025 Orders Only [facility] Medical Group Primary Care at [address] [phone] Kevin Hoang MD 02/11/2025 Telephone [facility] Medical [facility] Primary Care at [address] [phone] Kevin Hoang MD Med Refill 02/11/2025 Telephone [facility] Medical Group Primary Care at [address] [phone] Kevin Hoang MD Forms Request 02/03/2025 Orders Only [facility] Orthopedics and Sports Medicine [address] [place] [address] [address] [place] [address] Luis Mancini PA Primary osteoarthritis of both knees (Primary Dx); Quadriceps tendinitis; Weakness of right lower extremity 01/31/2025 11:00 AM CDT - 01/31/2025 11:59 PM CDT Hospital Encounter [facility] Medical [facility] Orthopedics and Sports Medicine [address] [place] [address] [address] [place] [address] Discharge Disposition: Discharge to home or self care 01/31/2025 10:45 AM CDT Office Visit [facility] Orthopedics and Sports Medicine [address] [place] [address] [address] [place] [address] Luis Mancini PA Primary osteoarthritis of both knees (Primary Dx); Quadriceps tendinitis; Weakness of right lower extremity 01/27/2025 Telephone [facility] Orthopedic and Sports Medicine [address] [place] [phone] Luis Mancini PA 01/24/2025 Telephone [facility] Orthopedics and Sports Medicine [address] [place] [address] [address] [place] [address] Audie Escalera MD 01/23/2025 2:00 PM CDT Ancillary Procedure [facility] Vascular and Vein Surgery at [address] [place] [address] Edema of both lower extremities due to peripheral venous insufficiency; Localized swelling, mass and lump, lower limb, bilateral 01/23/2025 Telephone [facility] Medical [facility] Primary Care at [address] [phone] Kevin Hoang MD patient question about blood thinners 01/21/2025 Orders Only [facility] Medical [facility] Primary Care at [address] [phone] Kevni Hoang MD 01/21/[address] [address] Daxa Fisher Chart Review (error) 01/21/2025 [facility]CO Quality [address] [address] Daxa Fisher from Last 3 Months Immunizations [...] drink = 0.6 oz pur e alcohol) [facility] Utilities Answer Date Recorded In the [...] often do you attend chur ch or anabaptism services? 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 Not on file Not [...] history exists Medical Devices Implanted Type Area Collar Trimmer Device Identifier Shelf Expiration Date Model / Serial / Lot [id number] [employer] St Mesh With Echo 2 Positioning System 25cm X 33cm Implanted:Qty: 1 on 09/20/2021 by Robinson Iyer MD at [facility] N/A: Abdomen [employer] 11/13/2022 [id number] / / [id number] [employer]/C R Bard Sepramesh Ip Sepra 8x6in Monofilament Bioresorbable Composite Latex Free [id number] - [id number] Implanted:Qty: 1 on 10/28/2024 by Robinson Iyer MD at [facility] Abdomen [employer]/C R Bard 08/16/2025 [id number] / / [id number] Procedures Procedure Name Priority Date/Time Associated Diagnosis [...] AM CDT Primary osteoarthritis of both knees OR ARTHROCENTESIS ASPIR&/INJ MAJOR JT/BURSA W/O US Routine [...] Read Routine (OP Routine) 05/11/2021 4:07 PM HAM STRIPPER Screening for osteoporosis 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 Left Ventricle: Normal left ventricular systolic function. [...] Procedure Note Robinson Hurley MD - 04/03/2025 [facility] Medical Group Cardiology [address], [address], [place] [address] P:[phone] P:[phone] Echocardiographic Report Patient Name: PAULINE CUETO L : 1955 Study Date: 04/03/2025 2:18:31 PM Sex: F Laundry Agent: RYLEY Location: [facility] Ref Provider: KEVIN HOANG [...] FINDINGS: Interpretation Site: Exam was interpreted at [facility]. Left Ventricle: Normal left ventricular systolic function. [...] Hoang MD LAB BLOOD ORDERABLES Final Result [facility] [address] [facility] Department [place] [address] * Differential, auto (03/06/2025 2:17 PM CDT) Pathologist [facility] Neutrophil abs 3.27 1.50 - 6.50 K/cumm Imm gran abs 0.02 0.00 - 0.10 K/cumm [facility] Lymphocyte abs 2.85 0.80 - 3.30 K/cumm [facility] Monocyte abs 0.56 0.20 - 0.80 K/cumm [facility] Eosinophil abs 0.13 0.00 - 0.50 K/cumm [facility] Basophil abs 0.06 0.00 - 0.10 K/cumm [facility] Neutrophil pct 47.4 % [facility] Comment: Interpretive Data Percent cell count reference ranges are not reported, since discordance with absolute values may lead to misinterpretation of CBC data. Current Interpretive Data was last revised on 2017. Imm gran pct 0.3 % [facility] Comment: Interpretive Data Percent cell count reference ranges are not reported, since discordance with absolute values may lead to misinterpretation of CBC data. Current Interpretive Data was last revised on 2017. Lymphocyte pct 41.4 % [facility] Comment: Interpretive Data Percent cell count reference ranges are not reported, since discordance with absolute values may lead to misinterpretation of CBC data. Current Interpretive Data was last revised on 2017. Monocyte pct 8.1 % [facility] Comment: Interpretive Data Percent cell count reference ranges are not reported, since discordance with absolute values may lead to misinterpretation of CBC data. Current Interpretive Data was last revised on 2017. Eosinophil pct 1.9 % [facility] Comment: Interpretive Data Percent cell count reference ranges are not reported, since discordance with absolute values may lead to misinterpretation of CBC data. Current Interpretive Data was last revised on 2017. Basophil pct 0.9 % [facility] Comment: Interpretive Data Percent cell count reference ranges are not reported, since discordance with absolute values may lead to misinterpretation of CBC data. Current Interpretive Data was last revised on 2017. Blood 03/06/2025 2:17 PM CDT 03/06/2025 6:20 PM CDT Kevin Hoang MD LAB BLOOD ORDERABLES Final Result Performing Organization Address [facility] Co de Phone Number [address] [address] * Thyroid Function [place] (03/06/2025 2:17 PM CDT) Pathologist [facility] TSH 1.62 0.30 - 4.20 mcIUnit/mL Blood 03/06/2025 2:17 PM CDT 03/06/2025 6:20 PM CDT Kevin Hoang MD LAB BLOOD ORDERABLES Final Result Performing Organization Address City/[facility] Co de Phone Number [address] [address] * (ABNORMAL) CBC with auto differential (03/06/2025 2:17 PM CDT) Pathologist [facility] WBC 6.89 3.80 - 9.90 K/cumm Hgb 12.0 11.9 - 15.5 g/dL [facility] Hct 36.5 35.6 - 45.5 % [facility] Plt 202 150 - 400 K/cumm [facility] MPV 12.2 9.1 - 12.3 fL [facility] RBC 3.96 3.90 - 5.20 M/cumm [facility] MCV 92.2 81.3 - 96.4 fL [facility] MCH 30.3 27.1 - 33.3 pg [facility] MCHC 32.9 32.3 - 35.7 g/dL [facility] RDW CV 15.2(H) 11.1 - 14.9 % [facility] RDW SD 50.5(H) 35.7 - 48.1 fL [facility] NRBC abs 0.00 0.00 - 0.01 K/cumm [facility] Blood 03/06/2025 2:17 PM CDT 03/06/2025 6:20 PM CDT Kevin Hoang MD LAB BLOOD ORDERABLES Final Result Performing Organization Address [facility] Co de Phone Number [address] [place] [address] * Vitamin D 25 hydroxy (03/06/2025 2:17 PM CDT) Vitamin D 25-OH 31.0 30.0 - 80.0 ng/mL Blood 03/06/2025 2:17 PM CDT 03/06/2025 6:20 PM CDT Kevin Hoang MD LAB BLOOD ORDERABLES Final Result Performing Organization Address City/[facility] Co de Phone Number [address] [place] [address] * (ABNORMAL) Lipid panel (03/06/2025 2:17 PM [...] revised on 2024. Non-HDL Cholesterol 172 mg/dL [facility] Comment: Interpretive Data Ages < or = [...] last revised on 2018. Chol/HDL ratio 4 [facility] Blood 03/06/2025 2:17 PM CDT 03/06/2025 6:20 PM CDT us Kevin Hoang MD LAB BLOOD ORDERABLES Final Result [facility] [address] [facility] Department [place] [address] * Comprehensive metabolic panel (03/06/2025 2:17 PM CDT) Sodium 142 135 - 145 mmol/L Potassium, pl 3.4 3.3 - 4.9 mmol/L [facility] Chloride 107 97 - 110 mmol/L [facility] CO2 23 22 - 32 mmol/L [facility] Anion gap 12 2 - 15 mmol/L [facility] BUN 14 6 - 25 mg/dL [facility] Creatinine 0.79 0.60 - 1.10 mg/dL [facility] Glucose 95 70 - 199 mg/dL [facility] Comment: Interpretive Data Fasting glucose >/= [...] 2022. Calcium 9.5 8.5 - 10.3 mg/dL [facility] Bilirubin, total 0.4 0.1 - 1.2 mg/dL [facility] Protein, pl 6.8 6.5 - 8.5 g/dL [facility] Albumin 3.7 3.5 - 5.0 g/dL [facility] Alk phos 70 40 - 130 Units/L [facility] ALT 21 7 - 45 Units/L [facility] AST 29 10 - 45 Units/L [facility] Blood 03/06/2025 2:17 PM CDT 03/06/2025 6:20 PM CDT Kevin Hoang MD LAB BLOOD ORDERABLES Final Result Performing Organization Address City/[facility] Co de Phone Number [address] [place] [address] * ALT (03/06/2025 2:11 PM CDT) ALT 20 7 - 45 Units/L Blood Venous blood specimen / Unknown 03/06/2025 2:11 PM CDT 03/06/2025 6:20 PM CDT Torres Carl Jr., DPM LAB BLOOD ORDERABLES F inal Result Performing Organization Address [facility] Co de Phone Number [address] [address] * AST (03/06/2025 2:11 PM CDT) AST 27 10 - 45 Units/L Blood Venous blood specimen / Unknown 03/06/2025 2:11 PM CDT 03/06/2025 6:20 PM CDT us Torres Carl Jr., DPM LAB BLOOD ORDERABLES F inal Result [facility] [address] [facility] Department [place] [address] * XR Knee Bilateral 4 [...] IMG XR PROCEDURES Final Res ult * OR ARTHROCENTESIS ASPIR&/INJ MAJOR JT/BURSA W/O US (01/31/2025 [...] 7:05 AM CDT Vascular & Vein Surgery [address] [place] [address]. [place] [address] Lower Extremity Venous Report Patient Name: PAULINE CUETO L : 1955 (69y 10m) Gender: F Study Date: 01/23/2025 01:54:38 PM Laundry Agent: LAURA Location: [facility] Order Provider: KEVIN HOANG [...] MD - 01/24/2025 Vascular & Vein Surgery [address] [place] [address] Lower Extremity Venous Report Patient Name: PAULINE CUETO L : 1955 (69y 10m) Gender: F Study Date: 01/23/2025 01:54:38 PM Laundry Agent: LAURA Location: [facility] Order Provider: KEVIN HOANG [...] 1 Or 2 Site (05/11/2021 4:07 PM HAM STRIPPER) Anatomical Region Laterality Modality Body N/A Other 05/12/2021 7:06 AM HAM STRIPPER Impressions 05/12/2021 7:06 AM HAM STRIPPER Normal bone mineral density of the spine and left hip. Electronically signed by: Denise Vail M.D. Narrative 05/12/2021 7:06 AM HAM STRIPPER Examination: Bone densitometry of the lumbar spine [...] by: Denise Vail M.D. Kevin Hoang MD [facility] DXA PROCEDURES Final Re sult * Hepatitis C antibody (04/07/2021 12:00 PM CDT) Pathologist [facility] Hep C Ab Nonreactive Nonreactive [facility] RAMOS [...] GENERAL ORDERABLES Final Result Performing Organization Address City/State/[facility] Phone Number [facility] [address] Department [place] [address] * HM COLONOSCOPY (05/24/2016) us Historical Provider HEALTH MAINTENANCE Final Result from Last 3 Months or Most Recently Relevant to Health Maintenance Insurance [facility] MDCR HMO REF [facility] MEDICARE Address: [address] [address] [facility] MEDICARE ADVANTAGE [facility] MEDICARE Address: [address] [address] [place] [address] [facility] MEDICARE ADVANTAGE [facility] MEDICARE Address: [address] [address] [place] [address] Advance Directives For more information, please contact: [phone] * Full Code (Latest Code Status on File) Date Activated Date Inactivated Comments 10/28/2024 1:21 PM 10/31/2024 12:27 AM * Full Code Date Activated Date Inactivated Comments 09/20/2021 5:38 PM 09/22/2021 9:03 PM Care Teams Cardroom Attendant Relationship Specialty Start Date End Date Kevin Hoang MD [address] [facility] [address] [place] [address] PCP - General Family Medicine 07/25/22 Luisito Conrad MD [address] [place] [address] Consulting Physician Ophthalmology 04/07/21 Audie Escalera MD [address] [place] [address] [address] [facility] [address] [place] [address] Surgeon Orthopedic Surgery 11/07/22 Robinson Iyer MD [address] [facility] [address] [facility] [address] [place] [address] Consulting Physician General Surgery 11/07/22 Wilian Menard MD [address] [place] [address] [facility] [address] [place] [address] Referring Physician Critical Care Med 11/28/24
[2025-04-18 17:28] LABS: Alveolar/Arterial O2 Gradient 21.3 mmHg; Fractional Inspired Oxygen 21 %; HCO3 ABG 23.6 mEq/l (22.0-26.0); Modified Allen's Test Pass; Oxygen Content ABG 16.8 %vol (16.0-22.0); Oxygen Saturation ABG 96.9 % (95.0-100.0); PCO2 ABG 35.2 mmHg (35.0-45.0); PO2 ABG 86.3 mmHg (80.0-100.0); PO2 FiO2 Ratio Arterial Blood 4.11 %; Site Drawn RIGHT RADIAL
[2025-04-18 17:50] LABS: NT Pro B Type Natriuretic Pept 137 pg/mL (19.9-100); Troponin I < 0.012 ng/mL (0.000-0.034)
[2025-04-18 18:43] LABS: INR 1.0; Prothrombin Time 13.5 Seconds (11.1-14.7)
[2025-04-18 18:44] LABS: Partial Thromboplastin Time 33.5 Seconds (22.3-36.8)
[2025-04-18] MEDS: LORazepam (*CRX) 1 MG TABLET PO (18:59)
[2025-04-18 19:35] VITALS: BP 164/87; PULSE 87; RESP 21; O2SAT 100
[2025-04-18 19:36] VITALS: PULSE 89
[2025-04-18 19:37] VITALS: O2SAT 100
[2025-04-18 20:10] VITALS: BP 164/87; PULSE 87; RESP 21; O2SAT 100
== END 2025-04-18 20:11 | disposition home or self-care (01) ==
PROVIDERS: Student in an Organized Health Care Education/Training Program; Emergency Provider Emergency Medicine; PCP Family Medicine
DX: F41.9 Anxiety disorder, unspecified (principal); I10 Essential (primary) hypertension; E11.9 Type 2 diabetes mellitus without complications; E78.5 Hyperlipidemia, unspecified; J44.9 Chronic obstructive pulmonary disease, unspecified; Z99.81 Dependence on supplemental oxygen; K21.9 Gastro-esophageal reflux disease without esophagitis; K44.9 Diaphragmatic hernia without obstruction or gangrene; M85.80 Other specified disorders of bone density and structure, unspecified site; F32.A Depression, unspecified; Z87.891 Personal history of nicotine dependence; Z90.81 Acquired absence of spleen; Z79.84 Long term (current) use of oral hypoglycemic drugs; Z79.899 Other long term (current) drug therapy; R94.31 Abnormal electrocardiogram [ECG] [EKG]
CPT/HCPCS: 36415; 36600; 71046; 80053; 82805; 83880; 84484; 85018; 85025; 85610; 85730; 93005; 99284; A9270

== ENCOUNTER 2025-04-22 12:20 | Emergency (ER) | payer MEDICARE, SELFPAY ==
--- OUTSIDE RECORDS SUMMARY | 2025-04-21 14:45 | XMS_ITS | Encounter Summary ---
Author Organization [facility] Healthcare Address [address] [place] [address] Care Team Providers Care Hearing Aid Consultant Name Role Phone Luisito Conrad MD Unavailable [phone] Kevin Hoang MD Primary Care Provider [phone] Audie Escalera MD Unavailable Robinson Iyer MD Unavailable Wilian Menard MD Unavailable [phone] Reason for Visit * Reason Comments Follow-up Patient is in the of fice today for follow up was in the ER on 04/18 for hypertension and got home and had a fall called 911 fire dept told her she didn't need to go to ER still feels really shaky and not feeling good Encounter Details Date Type Department Care Team (Late st Contact Info) Description 04/21/2025 2:45 PM INTERNET MARKETER Office Visit [facility] Primary Care at [address] [address] Kevin Hoang MD [address] [place] [address] [address] [place] [address] Orthostatic hypotension (Primary Dx); Essential hypertension Social History Tobacco Use Types Packs/Day Years Used Date Smoking Tobacco: Former Cigarettes 1 10 0 06/19/1971 - 1981 Smokeless Tobacco: Never Tobacco Cessation:Counseling Given: Not Answered Alcohol Use Standard Drinks/Week Comments Never 0 (1 standard drink = 0.6 oz pur e alcohol) [facility] Utilities Answer Date Recorded In the past 12 months has e [employer] gas, oil, or water [employer] threatened to shut off services in your [...] often do you attend chur ch or gnosticist services? Never 10/29/2024 Do you belong to any clubs o r organizations such as gnosticist groups, unions, fraternal or athletic groups, or [...] more points, staff should administer the PHQ-9) 2 04/21/2025 Exercise Vital Sign Answer Date Recorde d [...] any time in the past 12 m [facility], were you homeless or living in a senior living (including now)? 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 Not on file Not on file Not on file documented as of this encounter Last Filed Vital Signs Vital Sign Reading Time Taken Comments Blood Pressure 120/80 04/21/2025 3:02 PM INTERNET MARKETER Pulse 99 04/21/2025 3:02 PM INTERNET MARKETER Temperature 36 C (96.8 F) 04/21/2025 2:23 PM INTERNET MARKETER Respiratory Rate 16 04/21/2025 2:23 PM INTERNET MARKETER Oxygen Saturation 95% 04/21/2025 3:02 PM INTERNET MARKETER Inhaled Oxygen Concentration - - Weight 102.1 kg (225 lb) 04/21/2025 2:23 PM INTERNET MARKETER Height 175.3 cm (5' 9) 04/21/2025 2:23 PM INTERNET MARKETER Body Mass Index 33.23 04/21/2025 2:23 PM INTERNET MARKETER documented in this encounter Patient Instructions * Patient Instructions* Kevin Hoang MD - 04/21/2025 2:45 PM INTERNET MARKETER VISIT SUMMARY: Today, we discussed your episodes of orthostatic hypotension and recent falls, as well as your ongoing management of hypertension, lymphedema, and anemia. We reviewed your current medications and made some adjustments to better manage your symptoms and improve your overall health. YOUR PLAN: -ESSENTIAL HYPERTENSION WITH ORTHOSTATIC HYPOTENSION: This means you have high blood pressure that drops significantly when you stand up, which can cause dizziness and falls. We have reduced your verapamil dosage by half and sent a new prescription. Your losartan dosage has been changed to 100 mg once daily, and we have discontinued torsemide. Please monitor your blood pressure closely in different positions (lying, sitting, standing), stay hydrated by drinking two 32-ounce servings of water daily, move slowly to avoid quick movements, and you may add a pinch of salt to your meals if desired. I will want to see the BP readings through the week as well (report Monday at the earliest). It will help me determine if the verapamil was indeed the culprit or no. -BILATERAL LOWER EXTREMITY EDEMA AND LIPOEDEMA OF THIGHS: This means you have swelling in both legsand an abnormal buildup of fat in your thighs. You are working with the therapists, and they use compression in the treatment plan, which should be adequate to improve from the orthostatic standpoint. We are double checking on the stockings, however. Continue your current compression therapy until the stockings are available, and we will coordinate with physical therapy for fitting and managementof the compression stockings. -ANEMIA: This means you have a lower than normal number of red blood cells. Your recent labs showedmild anemia but normal kidney function and creatinine levels. We will continue to monitor your anemia status with future lab work and consider liquid iron supplementation if needed. INSTRUCTIONS: Please follow up with us to monitor your blood pressure and anemia status. Additionally, coordinatewith physical therapy for the fitting and management of your compression stockings. Thanks for coming in today! My medical assistants and I are thankful you have trusted us with your care, and hope that you received EXCELLENT care today! Please do not hesitate to call if you have any questions or concerns at [phone]. You may receive a phone call, text, MYCHART message, or e-mail asking about your care today. We would love to hear your feedback on how EXCELLENT your care wastoday! Wishing you better health, always. Dr. Hoang RNET MARKETER RNET MARKETER RNET MARKETER RNET MARKETER * Attachments The following attachments cannot be sent through Care Everywhere. * Hypotension (General Information) (Belarusian) * How to Take a Blood Pressure Reading (Severity Of Illness Coordinator) (Belarusian) documented in this encounter Ordered Prescriptions Prescription Sig Dispense Quantity Refills Last Filled Start Date End Date verapamil ER (VERELAN) 120 mg 24 hr capsuleIndications :hypertension Take 1 capsule (120 mg total) by mouth nightly 30 capsule 04/21/2025 losartan (COZAAR) 50 mg tabletIndications: Essential hypertension Take 2 tablets (100 mg total) by mouth daily 04/21/2025 documented in this encounter Progress Notes * Kevin Hoang MD - 04/21/2025 2:45 PM CST Images from the original note were not included. Subjective/Objective Patient ID: Pauline Morton is a 70 y.o. female. This patient has verbally consented to recording this visit in order to utilize AI technology in generating this note. Chief Complaint Follow-up (Patient is in the office today for follow up was in the ER on 04/18 for hypertension andgot home and had a fall called 911 fire dept told her she didn't need to go to ER still feels really shaky and not feeling good ) History of Present Illness Pauline Morton is a 70 year old female with hypertension and lymphedema who presents with episodes of orthostatic hypotension and recent falls. She experiences episodes of orthostatic hypotension, leading to falls, with a significant drop in blood pressure upon standing, reaching as low as 98/60 mmHg. A recent fall at home resulted in facialbruising. She attempts to stay hydrated, consuming approximately 64 ounces of water daily. She was recently seen in the ER at [place] due to these symptoms. Her hypertension is managed with losartan and verapamil. During a recent episode, her blood pressure was 142/124 mmHg with a heart rate of 116 bpm. She has been on verapamil for approximately 30 years and losartan for a significant period. She monitors her blood pressure at home and takes positional vitals. She manages lymphedema with treatment at the [facility] and is scheduled for compression therapy. She reports that the current compression boot hinders her mobility. She experienced a rash after taking terbinafine, which improved upon discontinuation. She is cautious about using products on her face due to previous reactions. She has a history of anemia, with recent lab work indicating some abnormalities related to anemia and kidney function. She is taking a liquid iron supplement to address the anemia. She reports a history of confusion and altered mental status following a fall, which was concerningfor a possible concussion, though no definitive diagnosis was made. Current Outpatient Medications on File Prior to Visit Medication Sig Dispense Refill albuterol HFA (PROVENTIL HFA,VENTOLIN HFA,PROAIR HFA) 90 mcg/actuation inhaler INHALE 2 PUFFS BY MOUTH EVERY 4 HOURS NEEDED FOR WHEEZE OR SHORTNESS OF BREATH 8.5 each 2 ALPRAZolam (XANAX) 0.25 mg tablet Take 1 tablet (0.25 mg total) by mouth 3 (three) times a day as needed for anxiety or sleep 60 tablet 1 amitriptyline (ELAVIL) 10 mg tablet TAKE 1 TABLET BY MOUTH EVERY DAY AT NIGHT 100 tablet 1 azelastine (ASTELIN) 137 mcg (0.1 %) nasal spray ADMINISTER 2 SPRAYS INTO EACH NOSTRIL 2 (TWO) TIMES A DAY USE IN EACH NOSTRIL DIRECTED 180 mL 1 cromolyn (OPTICROM) 4 % ophthalmic solution INSTILL 1 DROP INTO LEFT EYE ONCE A DAY 10 mL 3 cyanocobalamin (Vitamin B-12) 250 mcg tablet TAKE 1 TABLET BY MOUTH EVERY DAY 90 tablet 1 docusate sodium (COLACE) 100 mg capsule TAKE 1 CAPSULE BY MOUTH TWICE A DAY 60 capsule 2 EPINEPHrine 0.3 mg/0.3 mL auto-injection syringe Inject 0.3 mL (0.3 mg total) into the muscle as instructed as needed for anaphylaxis 2 each 1 famotidine (PEPCID) 40 mg tablet TAKE 1 TABLET BY MOUTH EVERY DAY AT NIGHT 90 tablet 0 fluticasone propionate (FLONASE) 50 mcg/actuation nasal spray SPRAY 1 SPRAY INTO EACH NOSTRIL EVERYDAY 48 mL 1 usqeydyuepa-czwxzjapz-fkqhnjit (Trelegy Ellipta) 200-62.5-25 mcg inhaler INHALE 1 PUFF BY MOUTH DAILY 180 each 0 hydrocortisone (ANUSOL-HC) 2.5 % rectal cream Insert into the rectum 4 (four) times a day as neededfor hemorrhoids (rectal discomfort) Apply to affected areas 30 g 0 losartan (COZAAR) 50 mg tablet TAKE 1 TABLET BY MOUTH TWICE A DAY 200 tablet 1 meclizine (ANTIVERT) 12.5 mg tablet TAKE 1 TABLET BY MOUTH 3 TIMES A DAY NEEDED FOR DIZZINESS. 30 tablet 1 metFORMIN XR (GLUCOPHAGE XR) 500 mg 24 hr tablet TAKE 1 TABLET BY MOUTH EVERY DAY WITH BREAKFAST 90tablet 1 montelukast (SINGULAIR) 10 mg tablet Take 1 tablet (10 mg total) by mouth nightly sertraline (ZOLOFT) 50 mg tablet Take 2 tablets (100 mg total) by mouth nightly torsemide (DEMADEX) 5 mg tablet Take 1 tablet (5 mg total) by mouth 2 (two) times a day 60 tablet 1 verapamil ER (VERELAN) 240 mg 24 hr capsule Take 1 capsule (240 mg total) by mouth nightly 30 capsule 11 vit A/vit C/vit E/zinc/copper (PRESERVISION AREDS ORAL) Take by mouth No current facility-administered medications on file prior to visit. Review of Systems Constitutional: Positive for fatigue. Respiratory: Negative for shortness of breath. Cardiovascular: Positive for leg swelling. Negative for chest pain and palpitations. Skin: Negative. Neurological: Positive for dizziness and light-headedness. Vitals: 04/21/25 1423 04/21/25 1500 04/21/25 1501 04/21/25 1502 BP: 142/80 152/90 142/88 120/80 BP Location: Left arm Left arm Left arm Left arm Patient Position: Sitting Lying Sitting Standing Pulse: 100 97 99 99 Resp: 16 Temp: 36 ??C (96.8 ??F) TempSrc: Temporal SpO2: 98% 96% 98% 95% Weight: 102.1 kg (225 lb) Height: 175.3 cm (5' 9) Physical Exam CHEST: Clear to auscultation bilaterally. No wheezes, rhonchi, or crackles. SKIN: Welts observed on the skin. Skin loosened. Physical Exam Vitals reviewed. Constitutional: Appearance: She is obese. HENT: Head: Normocephalic and atraumatic. Cardiovascular: Rate and Rhythm: Normal rate and regular rhythm. Heart sounds: Murmur heard. Neurological: Mental Status: She is alert. Psychiatric: Mood and Affect: Mood normal. Results LABS Creatinine: decreased GFR: within normal limits Anemia: mild Assessment & Plan Essential hypertension with orthostatic hypotension Blood pressure drops significantly upon standing, likely due to verapamil. Recent ER visit showed hypotension upon standing. Current regimen of losartan and verapamil may not be optimal. Dehydration may contribute to symptoms. - Reduced verapamil dosage by half and sent a new prescription. - Changed losartan to 100 mg once daily. - Discontinued torsemide. - Monitor blood pressure closely with positional vitals (lying, sitting, standing). - Encouraged hydration, aiming for two 32-ounce servings of water daily. - Advised to move slowly and avoid quick movements. - Allowed a pinch of salt on meals if desired. Bilateral lower extremity edema and lipoedema of thighs Compression stockings are recommended over current compression device due to hindrance in mobility.ER doctor advised transitioning to compression stockings. - Continue current compression therapy until stockings are available. - Will transition to compression stockings as advised by ER doctor. - Will coordinate with physical therapy for compression stocking fitting and management. Anemia Mild anemia noted in recent labs. Not expected to be causing significant symptoms. Recent labs showed normal kidney function and creatinine levels. - Continue to monitor anemia status with future lab work. - Consider liquid iron supplementation if needed. Renal ultrasound since the BP is hard to control RNET MARKETER documented in this encounter Plan of Treatment Not on file documented as of this encounter Visit Diagnoses Diagnosis Orthostatic hypotension- Primary Essential hypertension Unspecified essential hypertension documented in this encounter Discontinued Medications Medication Sig Discontinue Reason Start Date End Da te amitriptyline (ELAVIL) 10 mg tabletIndications:Idiopat hic peripheral neuropathy TAKE 1 TABLET BY MOUTH EVERY DAY AT NIGHT 09/04/2024 04/21/2025 torsemide (DEMADEX) 5 mg tabletIndications:Edema Take 1 tablet (5 mg total) by mouth 2 (two) times a day 04/10/2025 04/21/2025 losartan (COZAAR) 50 mg tabletIndications:Essenti al hypertension TAKE 1 TABLET BY MOUTH TWICE A DAY Reorder 03/15/2025 04/21/2025 verapamil ER (VERELAN) 240 mg 24 hr capsuleIndications:hypert ension Take 1 capsule (240 mg total) by mouth nightly Reorder 01/13/2025 04/21/2025 documented as of this encounter Care Teams Hearing Aid Consultant Relationship Specialty Start Date End Date Kevin Hoang MD [address] [facility] [address] [place] [address] PCP - General Family Medicine 07/25/22 Luisito Conrad MD [address] [place] [id number] Consulting Physician Ophthalmology 04/07/21 Audie Escalera MD [address] [place] [address] [address] GRISELDA [address] [place] [address] Surgeon Orthopedic Surgery 11/07/22 Robinson Iyer MD [address] [facility] [address] [place] [address] Consulting Physician General Surgery 11/07/22 Wilian Menard MD [address] [place] [address] Referring Physician Critical Care Med 11/28/24 documented as of this encounter
--- OUTSIDE RECORDS SUMMARY | 2025-04-21 14:45 | XMS_ITS | Encounter Summary ---
Author Organization [facility] Healthcare Address [address] [place] [address] Care Team Providers Care Heating And Cooling Technician Name Role Phone Luisito Conrad MD Unavailable [phone] Kevin Hoang MD Primary Care Provider Audie Escalera MD Unavailable Robinson Iyer MD Unavailable Wilian Menard MD Unavailable Reason for Visit * Reason Comments Follow-up [...] st Contact Info) Description 04/21/2025 2:45 PM FURNITURE BUILDER Office Visit [facility] Primary Care at [address] [address] Kevin Hoang MD [address] [place] [address] [address] [place] [address] Orthostatic hypotension (Primary Dx); Essential hypertension Social History Tobacco Use Types Packs/Day Years Used Date Smoking Tobacco: Former Cigarettes 1 10 0 06/19/1971 - 1981 Smokeless Tobacco: Never Tobacco Cessation:Counseling Given: Not Answered Alcohol Use Standard Drinks/Week Comments Never 0 (1 standard drink = 0.6 oz pur e alcohol) [facility] Utilities Answer Date Recorded In the past 12 months has e [employer], gas, oil, or water [employer] threatened to shut off services in your [...] any clubs o r organizations such as roman catholic groups, unions, fraternal or athletic groups, or [...] any time in the past 12 m [facility], were you homeless or living in a nursing home (including now)? 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 Not on file Not on file documented as of this encounter Last Filed Vital Signs Vital Sign Reading Time Taken Comments Blood Pressure 120/80 04/21/2025 3:02 PM FURNITURE BUILDER Pulse 99 04/21/2025 3:02 PM FURNITURE BUILDER Temperature 36 C (96.8 F) 04/21/2025 2:23 PM FURNITURE BUILDER Respiratory Rate 16 04/21/2025 2:23 PM FURNITURE BUILDER Oxygen Saturation 95% 04/21/2025 3:02 PM FURNITURE BUILDER Inhaled Oxygen Concentration - - Weight 102.1 kg (225 lb) 04/21/2025 2:23 PM FURNITURE BUILDER Height 175.3 cm (5' 9) 04/21/2025 2:23 PM FURNITURE BUILDER Body Mass Index 33.23 04/21/2025 2:23 PM FURNITURE BUILDER documented in this encounter Patient Instructions * Patient Instructions* Kevin Hoang MD - 04/21/2025 2:45 PM FURNITURE BUILDER VISIT SUMMARY: Today, we discussed your episodes [...] you have any questions or concerns at [phone]. You may receive a phone call, text, MYCHART message, or e-mail asking about your care today. We would love to hear your feedback on how EXCELLENT your care wastoday! Wishing you better health, always. Dr. Hoang ITURE BUILDER ITURE BUILDER ITURE BUILDER ITURE BUILDER * Attachments The following attachments cannot be sent through Care Everywhere. * Hypotension (General Information) (Samoan) * How to Take a Blood Pressure Reading (Can Intake Worker) (Samoan) documented in this encounter Ordered Prescriptions Prescription [...] was recently seen in the ER at [place] due to these symptoms. Her hypertension is managed with losartan and verapamil. During a recent episode, her blood pressure was 142/124 mmHg with a heart rate of 116 bpm. She has been on verapamil for approximately 30 years and losartan for a significant period. She monitors her blood pressure at home and takes positional vitals. She manages lymphedema with treatment at the [facility] and is scheduled for compression therapy. [...] INTO EACH NOSTRIL EVERYDAY 48 mL 1 zfwxymcojxt-mwmtkwllp-ilnmdmnn (Trelegy Ellipta) 200-62.5-25 mcg inhaler INHALE 1 [...] since the BP is hard to control ITURE BUILDER documented in this encounter Plan of Treatment [...] documented as of this encounter Care Teams Heating And Cooling Technician Relationship Specialty Start Date End Date Kevin Hoang MD [address] [facility] [address] [place] [address] PCP - General Family Medicine 07/25/22 Luisito Conrad MD [address] [place] [address] Consulting Physician Ophthalmology 04/07/21 Audie Escalera MD [address] [place] [address] [address]ISELDA [address] [place] [address] Surgeon Orthopedic Surgery 11/07/22 Robinson Iyer MD [address] [facility] [address]ISEL[address] [place] [address] Consulting Physician General Surgery 11/07/22 Wilian Menard MD [address] [place] [address] Referring Physician Critical Care Med 11/28/24 documented as of this encounter
--- NOTE | ~2025-04-22 | CT_ITS ---
CT HEAD NON-CONTRAST CT C-SPINE Clinical History: fall x4 days ago. Confused Comparison: None Technique: Unenhanced axial images skull base to vertex. Coronal, sagittal reformats. Axial images thoracic inlet to skull base. Sagittal and coronal reformats. CT images acquired with automatic exposure control for dose reduction DLP: 605 mGy-cm Findings: Head: Sulci, ventricles: Unremarkable. No intracerebral hemorrhage. No evidence acute territorial infarct. No mass effect, midline shift, intra-/extra-axial fluid collection. Bony calvarium intact. Visualized paranasal sinuses: Clear. Mastoid air cells: Clear. Left globe prosthesis. Right forehead contusion. C-spine: No acute fracture. Grade 1 anterolisthesis C4 on 5. Straightening of normal cervical lordosis. Mild degenerative changes. Disc disease C5-6. Prevertebral soft tissues within normal limits. Visualized lung apices: Clear. Visualized thyroid: Unremarkable. No enlarged cervical nodes. IMPRESSION: HEAD: 1. No acute intracranial findings. C-SPINE: 1. No acute fracture. Reviewed, dictated and finalized at location R. TOW OPERATOR IMPRESSION: HEAD: 1. No acute intracranial findings. C-SPINE: 1. No acute fracture.
--- NOTE | ~2025-04-22 | US_ITS ---
EXAMINATION: US venous doppler LE RT, 04/22/2025 16:20 BRANCH SERVICES MANAGER HISTORY: rle swelling/pain, r/o dvt Comparison: None Technique: Enriquez-scale and color Doppler images were attempted of the lower saphenofemoral junction, common femoral vein,superficial femoral vein, proximal deep femoral vein, proximal deep femoral vein, popliteal vein and posterior tibial veins. Findings: Deep Venous System:Normal flow, augmentation and compressibility. No echogenic thrombus identified. The contralateral saphenofemoral junction appears unremarkable. Superficial Venous SystemNo superficial thrombophlebitis. Soft tissues: Soft tissues are unremarkable. Impression: Negative for DVT. Reviewed, dictated and finalized at location P. CH SERVICES MANAGER Impression: Negative for DVT.
[2025-04-22 12:25] VITALS: BP 149/81; PULSE 90; RESP 16; TEMP 36.7; O2SAT 97
--- OUTSIDE RECORDS SUMMARY | 2025-04-22 14:13 | XMS_ITS | Clinical Summary ---
Author Organization [facility] Address [address] [place] [address] Care Team Providers Care Candle Maker Name Role Phone Luisito Conrad MD Unavailable [phone] Kevin Hoang MD Primary Care Provider [phone] Audie Escalera MD Unavailable [phone] Robinson Iyer MD Unavailable Wilian Menard MD [...] (10 mg total) by mouth nightly Active azelastine (ASTELIN) 137 mcg (0.1 %) [...] affected areas 30 g 12/28/19 25 Active fluticasone propionate (FLONASE) 50 mcg/actuation nasal spray SPRAY 1 SPRAY INTO EACH NOSTRIL EVERY DAY 48 mL 1 02/04/20 25 Active metFORMIN XR (GLUCOPHAGE XR) 500 mg 24 hr tablet TAKE 1 TABLET BY MOUTH EVERY DAY WITH BREAKFAST 90 tablet 1 02/28/20 25 Active EPINEPHrine 0.3 mg/0.3 mL auto-injection syringe Inject 0.3 mL (0.3 mg total) into the muscle as instructed as needed for anaphylaxis 2 each 1 02/28/20 25 Active albuterol HFA (PROVENTIL HFA,VENTOLIN HFA,PROAIR HFA) 90 mcg/actuation inhaler INHALE 2 PUFFS BY MOUTH EVERY 4 HOURS NEEDED FOR WHEEZE OR SHORTNESS OF BREATH 8.5 each 2 03/24/20 25 Active sertraline (ZOLOFT) 50 mg tabletIndicatio ns:Recurrent major depressive disorder, in partial remission Take 2 tablets (100 mg total) by mouth nightly 03/28/20 Active docusate sodium (COLACE) 100 mg capsule TAKE 1 CAPSULE BY MOUTH TWICE A DAY 60 capsule 2 03/31/20 Active famotidine (PEPCID) 40 mg tabletIndicatio ns:Laryngeal spasm TAKE 1 TABLET BY MOUTH EVERY DAY AT NIGHT 90 tablet 04/01/20 25 Active cyanocobalamin (Vitamin B-12) 250 mcg tablet TAKE 1 TABLET BY MOUTH EVERY DAY 90 tablet 1 04/01/20 25 Active losartan (COZAAR) 50 mg tabletIndicatio ns:Essential hypertension Take 2 tablets (100 mg total) by mouth daily 04/21/20 Active verapamil ER (VERELAN) 120 mg 24 hr capsuleIndicati ons:hypertensio n Take 1 capsule (120 mg total) by mouth nightly 30 capsule 04/21/20 25 2025 Active cyanocobalamin, vitamin B-12, (VITAMIN B-12 ORAL) Take by mouth 2024 Discontinued(D uplicate order) amitriptyline (ELAVIL) 10 mg tabletIndicatio ns:Idiopathic peripheral neuropathy TAKE 1 TABLET BY MOUTH EVERY DAY AT NIGHT 100 tablet 1 09/05/19 25 2024 Discontinued cyanocobalamin (Vitamin B-12) 250 [...] 8.5 each 2 01/11/20 25 2024 Discontinued verapamil ER (VERELAN) 240 mg 24 hr capsuleIndicati ons:hypertensio n Take 1 capsule (240 mg total) by mouth nightly 30 capsule 11 01/14/20 25 2024 Discontinued(R eorder) lansoprazole (PREVACID) 30 mg capsule TAKE 1 CAPSULE BY MOUTH EVERY DAY 90 capsule 1 02/04/20 25 2024 Discontinued(D uplicate order) famotidine (PEPCID) 40 mg tabletIndicatio ns:Laryngeal spasm [...] tablet 6 03/04/20 25 2024 Discontinued(R eorder) losartan (COZAAR) 50 mg tabletIndicatio ns:Essential hypertension TAKE 1 TABLET BY MOUTH TWICE A DAY 200 tablet 1 03/15/20 25 2024 Discontinued(R eorder) torsemide (DEMADEX) 5 mg tabletIndicatio ns:Edema Take 1 tablet (5 mg total) by mouth 2 (two) times a day 60 tablet 1 04/10/20 25 2024 Discontinued terbinafine (LamiSIL) 250 mg tablet Take 1 [...] 11/19/2024 S/P repair of recurrent ventral hernia Preop examination 10/08/2024 Assessment & Plan (10/08/2024 [...] 05/22/2024 Assessment & Plan (05/22/2024 11:47 AM ELEMENTARY [employer]CHO[employer] B[employer] DIRECTOR): -Recommended: Healthy diet. Avoiding junk food/fast [...] 06/01/2023 Assessment & Plan (05/22/2024 11:46 AM ELEMENTARY SCHO[employer] BAND DIRECTOR): Stable on current medication. Continue sertraline 100mg as ordered. May follow up in 6 months Also uses amitriptyline 10mg at bedtime for sleep Memory loss 11/11/2022 Class 2 severe obesity due t o excess calories with serious comorbidity and body mass index (BMI) of 36.0 to 36.9 in adult 01/07/2022 Assessment & Plan (05/24/2024 10:39 PM ELEMENTARY [employer]CHOOL BAND DIRECTOR): BMI Follow-up includes: exercise counseling. Assessment & Plan (11/15/2023 10:35 AM CDT): BMI Follow-up includes: nutrition counseling, exercise counseling, and education provided. Assessment & Plan (05/10/2023 10:58 AM ELEMENTARY SCHOOL BAND DIRECTOR): BMI Follow-up includes: nutrition counseling, exercise [...] completion. Assessment & Plan (08/19/2021 1:48 PM ELEMENT[employer]CHO[employer] B[employer] DIRECTOR): Outside of the shortness of breath, [...] 04/28/2021 Assessment & Plan (04/28/2021 10:08 AM ELEMENTARY SCHOOL BAND DIRECTOR): I'm not convinced serious injury; we will treat conservatively for a week, with ibuprofen 600-800 mg every 8 hours as needed, ice and heat to the tender area 3- 4 times a day, 20 min's per. Xray will be held in abeyance unless not improving through the week. Let us know Allergic rhinitis 04/07/2021 Assessment & Plan (08/10/2022 11:34 AM ELEMENTARY SCHOOL BAND DIRECTOR): Nasal saline spray (Simply saline, Little Remedies, [place], [place]) 2 second sprays or 2 squeezes into [...] 10/16/2020 Assessment & Plan (05/22/2024 11:45 AM ELEMENTARY SCHOOL BAND DIRECTOR): Stable/ Improved. Blood pressure is adequately controlled on lisinopril (Prinivil) and hydrochlorothiazide, verapamil . We will not make any medication changes today. Will have her follow-up in 6 months for continued monitoring and management Assessment & Plan (05/12/2023 2:28 PM ELEMENTARY SCHOOL BAND DIRECTOR): Continuing verapamil, lisinopril-hct Labs ordered for next visit Discussed herbals. Might look into turmeric, krill oil with hyaluronic acid (e.g Solomon-Red), collagen joint supplement Continue good exercise practice, but don't push too far beyond tolerance. 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 Pharmacotherapy as ordered.- atorvastatin Lipids will be reassessed in 6 months. 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 Assessment & Plan (12/12/2023 [...] 05/22/2024 Assessment & Plan (08/11/2022 12:49 PM ELEMENTARY SCHOOL BAND DIRECTOR): Pepcid 40 mg at bedtime Chronic maxillary sinusitis 07/05/2022 05/22/2024 Assessment & Plan (07/05/2022 12:05 PM ELEMENTARY SCHO[employer] BAND DIRECTOR): Nasal saline spray (Simply saline, Little Remedies, [place], [place]) 2 second sprays or 2 squeezes into [...] (08/24/2021): Added automatically from request for surgery [id number] Assessment & Plan (10/07/2021 10:53 AM CDT): [...] 12/03/2024 Assessment & Plan (07/30/2024 10:54 AM ELEMENTARY SCHOOL BAND DIRECTOR): I do not fully appreciate any [...] plan. Assessment & Plan (07/23/2024 11:48 AM ELEMENTARY SCHOOL BAND DIRECTOR): Not having pain, but it's inhibiting [...] week) Assessment & Plan (08/19/2021 1:46 PM ELEMENTARY SCHOOL BAND DIRECTOR): The patient has multiple fascial defects [...] on echocardiogram, I do not see a [facility] Weight loss and increase exercise Encounters Date Type Department Care Team Description 04/22/2025 Telephone [facility] Primary Care at [address] [phone] Kevin Hoang MD 04/22/2025 Telephone [facility] Primary Care at [address] [phone] Kevin Hoang MD displaying signs of forgetfulness 04/21/2025 2:45 PM [employer] Office Visit [facility] Primary Care at [address] [phone] Kevin Hoang MD Orthostatic hypotension (Primary Dx); Essential hypertension 04/18/2025 Nurse Triage [facility] Primary Care at [address] [phone] Kevin Hoang MD 04/18/2025 Telephone [facility] Primary Care at [address] [phone] Kevin Hoang MD 04/17/2025 Nurse Triage [facility] Primary Care at [address] [phone] Ekaterina Ontiveros, BOLA 04/16/2025 Telephone [facility] Primary Care at [address] [phone] Kevin Hoang MD Med Refill 04/10/2025 Orders Only [facility] Primary Care at [address] [phone] Kevin Hoang MD 04/08/2025 Telephone [facility] Primary Care at [address] [phone] Cate Fernandez MA compression stockings 04/08/2025 Telephone [facility] Primary Care at [address] [phone] Kevin Hoang MD Med Refill 04/04/2025 Results Follow-Up [facility] Primary Care at [address] [phone] Kevin Hoang MD Transthoracic Echo (TTE) Complete W Doppler/CF 04/03/2025 2:00 PM CDT Ancillary Procedure [facility] Cardiology at [address] [address] Diastolic dysfunction; Edema of both lower extremities due to peripheral venous insufficiency 03/28/2025 11:45 AM CDT Office Visit [facility] Primary Care at [address] [phone] Kevin Hoang MD Diastolic dysfunction (Primary Dx); Edema of both lower extremities due to peripheral venous insufficiency; Anxiety disorder with panic attacks; Recurrent major depressive disorder, in partial remission; Lipedema of lower extremity 03/27/2025 Nurse Triage [facility] Primary Care at [address] [phone] Kevin Hoang MD 03/24/2025 Therapy [facility] Sports Medicine and Primary Care at [address] [phone] Kenia Waddell MA Primary osteoarthritis of both knees (Primary Dx); Edema of both lower extremities due to peripheral venous insufficiency 03/21/2025 11:30 AM CDT Office Visit [facility] Primary Care at [address] [phone] Kevin Hoang MD Edema of both lower extremities due to peripheral venous insufficiency (Primary Dx); Encounter for screening mammogram for malignant neoplasm of breast; Screening for osteoporosis; Asymptomatic menopausal state; Need for vaccination 03/21/2025 Telephone [facility] Primary Care at [address] [phone] Kevin Hoang MD Lab Results 03/20/2025 Telephone [facility] Primary Care at [address] [phone] Kevin Hoang MD Medical Records Request 03/06/2025 2:15 PM CDT Lab [address] [address] Essential hypertension; Class 2 severe obesity due to excess calories with serious comorbidity and body mass index (BMI) of 36.0 to 36.9 in adult (HCC); Mixed hyperlipidemia 03/06/2025 2:00 PM CDT Lab [address] [address] Dermatophytosis of nail (Primary Dx) 02/28/2025 10:45 AM CDT Office Visit [facility] Cardiology at [address] [place] [phone] Wilian Foy MD Essential hypertension (Primary Dx) 02/28/2025 Telephone [facility] Cardiology [address] [facility] [address] [place] [address] Brisa Nixon MA Torsemide 02/27/2025 Orders Only [facility] Primary Care at [address] [phone] Kevin Hoang MD 02/11/2025 Telephone [facility] Primary Care at [address] [phone] Kevin Hoang MD Med Refill 02/11/2025 Telephone [facility] Primary Care at [address] [phone] Kevin Hoang MD Forms Request 02/03/2025 Orders Only [facility] Orthopedics and Sports Medicine [address] [place] [phone] Luis Mancini PA Primary osteoarthritis of both knees (Primary Dx); Quadriceps tendinitis; Weakness of right lower extremity 01/31/2025 11:00 AM CDT - 01/31/2025 11:59 PM CDT Hospital Encounter [facility] Orthopedics and Sports Medicine [address] [place] [address], [place] [phone] Discharge Disposition: Discharge to home or self care 01/31/2025 10:45 AM CDT Office Visit [facility] Orthopedics and Sports Medicine [address] [place] [address], [place] [phone] Luis Mancini PA Primary osteoarthritis of both knees (Primary Dx); Quadriceps tendinitis; Weakness of right lower extremity 01/27/2025 Telephone [facility] Orthopedic and Sports Medicine [address] [place] [phone] Luis Mancini PA 01/24/2025 Telephone [facility] Orthopedics and Sports Medicine [address] [place] [address] [address] [place] [phone] Audie Escalera MD 01/23/2025 2:00 PM CDT Ancillary Procedure [facility] Vascular and Vein Surgery at [address] [place] [phone] Edema of both lower extremities due to peripheral venous insufficiency; Localized swelling, mass and lump, lower limb, bilateral 01/23/2025 Telephone [facility] Primary Care at [address] [phone] Kevin Hoang MD patient question about blood thinners 01/21/2025 Orders Only [facility] Primary Care at [address] [phone] Kevin Hoang MD 01/21/2025 Telephone [facility] Care [address] [address] Daxa Fisher Chart Review (error) 01/21/2025 ACO Quality [facility] Care [address] [address] Daxa Fisher from Last 3 Months Immunizations Immunization Administration Dates Next Due Influenza, Quadrivalent, Negra l Culture-based MDCK, Antibiotic Free, Intramuscular 05/11/2019 Influenza, Quadrivalent, Hig h Dose, Preservative Free, Intrr 05/10/2023,05/31/2022,04/07/2021 Influenza, Quadrivalent, Spl it, Preservative Free, Intramuscular 02/28/2020,05/25/2018 Influenza, Trivalent, High D ose, Split, Preservative Free, Intramuscular 03/21/2025 Influenza, Trivalent, IM (MDV) 05/25/2018,2016 Influenza, Unspecified 02/23/2023(Deferr ed: Patient Refused),01/25/2023(Deferred: Patient [...] Arik Cancer Father Arcelia Arik Diabetes Father Hazel Dell Arik Heart disease Father Hazel Dell Arik Heart attack Maternal Grandfather No Known Problems Maternal Grandmother Hypertension Mother Arthritis Other Bleeding Disorder Other No Known Problems Paternal Grandfather Diabetes Paternal Grandmother Hypertension Sister 1 Hypertension Sister 2 Hypertension Sister 3 Hypertension Sister 4 Hypertension Sister 5 Relation Name Status Comments Brother 1 Alive Brother 2 Father Hazel Dell Arik Maternal Grandfather Maternal Grandmother Mother Other [...] drink = 0.6 oz pur e alcohol) [facility] Utilities Answer Date Recorded In the past 12 months has e [employer], gas, oil, or water [employer] threatened to shut off services in your [...] were you homeless or living in a prison (including now)? 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 Not on file Not on file Last Filed Vital Signs Vital Sign Reading Time Taken Comments Blood Pressure 120/80 04/21/2025 3:02 PM ELEMENTARY SCHOOL B[employer] DIRECTOR Pulse 99 04/21/2025 3:02 PM [employer]MENT[employer] B[employer] DIRECTOR Temperature 36 C (96.8 F) 04/21/2025 2:23 PM [employer]MENT[employer] B[employer] DIRECTOR Respiratory Rate 16 04/21/2025 2:23 PM ELEMENTARY [employer]OL B[employer] DIRECTOR Oxygen Saturation 95% 04/21/2025 3:02 PM ELEMENTARY SCHO[employer] B[employer] DIRECTOR Inhaled Oxygen Concentration - - Weight 102.1 kg (225 lb) 04/21/2025 2:23 PM ELEMENTARY [employer] B[employer] DIRECTOR Height 175.3 cm (5' 9) 04/21/2025 2:23 PM [employer]MENT[employer] B[employer] DIRECTOR Body Mass Index 33.23 04/21/2025 2:23 PM [employer]MENT[employer] B[employer] DIRECTOR Plan of Treatment Health Maintenance Due Date Last Done Comments Hepatitis B Screening 1973 Osteoporosis Screening-Bone Density Scan 05/11/2023 05/11/2021 Breast Cancer Screening-Mammogram 12/24/2024 12/25/2023, 03/10/2022, 06/24/2014, Additional history exists Well Visit 65+ 05/22/2025 05/22/2024, 10/18, 04/07/2021 Zoster Vaccine (1 of 2) 11/19/2025 Post poned from 2005 (Insurance / Financial) Covid-19 Vaccine ( season) 2026 04/12/2021, 09/07/2020, 09/07/2020, Additional history exists Postponed from 02/17/2025 (Patient declined, but will receive in the future) Depression Screening 04/21/2026 04/21/2025, 03/21/2025, 03/21/2025, Additional history exists Fall Risk Assessment 04/21/2026 04/21/2025, 01/02/2025, 10/30/2024, Additional history exists Colon Cancer Screening-Colonoscopy 05/24/2026 05/24/2016 DTaP/Tdap/Td Vaccine (2 - Td or Tdap) 08/20/2029 08/21/2019 Colon Cancer Screening-CT Colonography Discontinued 05/24/2016 Colon Cancer Screening-DNA Stool Discontinued 05/24/2016 Colon Cancer Screening-FIT Discontinued 05/24/2016 Colon Cancer Screening-Sigmoidoscopy Discontinued 05/24/2016 Hepatitis C Screening Completed 04/07/2021 Pneumococcal vaccine 65+ Completed 05/10/2023 Influenza Vaccine Completed 03/21/2025, , 06/01/2022, Additional history exists Medical Devices Implanted Type Area Locomotive Switch Operator Device Identifier Shelf Expiration Date Model / Serial / Lot [id number] Phasix St Mesh With Echo 2 Positioning System 25cm X 33cm Implanted:Qty: 1 on 09/20/2021 by Robinson Iyer MD at [facility] N/A: Abdomen [employer] 11/13/2022 [id number] / / [id number] [employer]/C R Bard Sepramesh Ip Sepra 8x6in Monofilament Bioresorbable Composite Latex Free [id number] - [id number] Implanted:Qty: 1 on 10/28/2024 by Robinson Iyer MD at [facility] Abdomen [employer] Bard 08/16/2025 [id number] / / [id number] Procedures Procedure Name Priority Date/Time Associated Diagnosis [...] AM CDT Primary osteoarthritis of both knees [place] ARTHROCENTESIS ASPIR&/INJ MAJOR JT/BURSA W/O US Routine 01/31/2025 10:45 AM CDT Primary osteoarthritis of both knees US VEIN DUPLEX LOWER EXTREMITY BILATERAL COMPLETE Schedule Routine, Read Routine (OP Routine) 01/23/2025 2:25 PM CDT Edema of both lower extremities due to peripheral venous insufficiency Localized swelling, mass and lump, lower limb, bilateral HM MAMMOGRAPHY Routine 12/25/2023 3:13 PM CDT DEXA AXIAL SKELETON BONE DENSITY 1 OR MORE SITES Schedule Routine, Read Routine (OP Routine) 05/11/2021 4:07 PM [employer]MENT[employer] DIRECTOR Screening for osteoporosis prison (current) use of inhaled steroids HEPATITIS C [...] PM CDT Narrative 04/03/2025 3:51 PM CDT [facility] Cardiology [address], [address], [place] [address] P:[phone] P:[phone] Echocardiographic Report Patient Name: PAULINE CUETO L : 1955 Study Date: 04/03/2025 2:18:31 PM Sex: F Solar Pv Installer: RYLEY Location: [facility] Ref Provider: KEVIN [...] FINDINGS: Interpretation Site: Exam was interpreted at [facility]. Left Ventricle: Normal left ventricular systolic function. [...] Procedure Note Robinson Hurley MD - 04/03/2025 [facility] Cardiology [address] [facility], [address], [place] [address] P:[phone] P:[phone] Echocardiographic Report Patient Name: PAULINE CUETO L : 1955 Study Date: 04/03/2025 2:18:31 PM Sex: F Solar Pv Installer: RYLEY Location: [facility] Ref Provider: KEVIN [...] FINDINGS: Interpretation Site: Exam was interpreted at [facility]. Left Ventricle: Normal left ventricular systolic function. [...] sult * eGFR (03/06/2025 2:17 PM CDT) Pathologist [facility] eGFR 81 >=60 mL/min/1. 73 m2 Comment: [...] Hoang MD LAB BLOOD ORDERABLES Final Result [facility] [address] [facility] Department [place] [address] * Differential, auto (03/06/2025 2:17 PM CDT) [facility] Neutrophil abs 3.27 1.50 - 6.50 K/cumm Imm gran abs 0.02 0.00 - 0.10 K/cumm [facility] Lymphocyte abs 2.85 0.80 - 3.30 K/cumm [facility] Monocyte abs 0.56 0.20 - 0.80 K/cumm [facility] Eosinophil abs 0.13 0.00 - 0.50 K/cumm [facility] Basophil abs 0.06 0.00 - 0.10 K/cumm [facility] Neutrophil pct 47.4 % [facility] Comment: Interpretive Data Percent cell count reference ranges are not reported, since discordance with absolute values may lead to misinterpretation of CBC data. Current Interpretive Data was last revised on 2017. Imm gran pct 0.3 % [facility] Comment: Interpretive Data Percent cell count reference ranges are not reported, since discordance with absolute values may lead to misinterpretation of CBC data. Current Interpretive Data was last revised on 2017. Lymphocyte pct 41.4 % [facility] Comment: Interpretive Data Percent cell count reference ranges are not reported, since discordance with absolute values may lead to misinterpretation of CBC data. Current Interpretive Data was last revised on 2017. Monocyte pct 8.1 % [facility] Comment: Interpretive Data Percent cell count reference ranges are not reported, since discordance with absolute values may lead to misinterpretation of CBC data. Current Interpretive Data was last revised on 2017. Eosinophil pct 1.9 % [facility] Comment: Interpretive Data Percent cell count reference ranges are not reported, since discordance with absolute values may lead to misinterpretation of CBC data. Current Interpretive Data was last revised on 2017. Basophil pct 0.9 % [facility] Comment: Interpretive Data Percent cell count reference ranges are not reported, since discordance with absolute values may lead to misinterpretation of CBC data. Current Interpretive Data was last revised on 2017. Blood 03/06/2025 2:17 PM CDT 03/06/2025 6:20 PM CDT Kevin Hoang MD LAB BLOOD ORDERABLES Final Result Performing Organization Address [facility] Co de Phone Number [address] Department [place] [address] * Thyroid Function [place] (03/06/2025 2:17 PM CDT) TSH 1.62 0.30 - 4.20 mcIUnit/mL Blood 03/06/2025 2:17 PM CDT 03/06/2025 6:20 PM CDT Kevin Hoang MD LAB BLOOD ORDERABLES Final Result Performing Organization Address [facility] Co de Phone Number [address] [address] * (ABNORMAL) CBC with auto differential (03/06/2025 2:17 PM CDT) [facility] WBC 6.89 3.80 - 9.90 K/cumm Hgb 12.0 11.9 - 15.5 g/dL [facility] Hct 36.5 35.6 - 45.5 % [facility] Plt 202 150 - 400 K/cumm [facility] MPV 12.2 9.1 - 12.3 fL [facility] RBC 3.96 3.90 - 5.20 M/cumm [facility] MCV 92.2 81.3 - 96.4 fL [facility] MCH 30.3 27.1 - 33.3 pg [facility] MCHC 32.9 32.3 - 35.7 g/dL [facility] RDW CV 15.2(H) 11.1 - 14.9 % [facility] RDW SD 50.5(H) 35.7 - 48.1 fL [facility] NRBC abs 0.00 0.00 - 0.01 K/cumm [facility] Blood 03/06/2025 2:17 PM CDT 03/06/2025 6:20 PM CDT Kevin Hoang MD LAB BLOOD ORDERABLES Final Result Performing Organization Address [facility] Co de Phone Number [address] [address] * Vitamin D 25 hydroxy (03/06/2025 2:17 PM CDT) [facility] Vitamin D 25-OH 31.0 30.0 - 80.0 ng/mL Blood 03/06/2025 2:17 PM CDT 03/06/2025 6:20 PM CDT Kevin Hoang MD LAB BLOOD ORDERABLES Final Result Performing Organization Address City/[facility] Co de Phone Number [address] [place] [address] * (ABNORMAL) Lipid panel (03/06/2025 2:17 PM [...] 2. NCEP Expert Panel. Circulation 2004;110:227 3. Lakhwinder Quinonez et al. NA Cardiol. 2020 October 17;5(5):540-548. doi: 10.1001/jamacardio.2020.0013 Current Interpretive Data was last revised on 2024. Non-HDL Cholesterol 172 mg/dL [facility] Comment: Interpretive Data Ages < or = [...] last revised on 2018. Chol/HDL ratio 4 [facility] Blood 03/06/2025 2:17 PM CDT 03/06/2025 6:20 PM CDT us Kevin Hoang MD LAB BLOOD ORDERABLES Final Result [facility] [address] [facility] Department of [place] [address] * Comprehensive metabolic panel (03/06/2025 2:17 PM CDT) Sodium 142 135 - 145 mmol/L Potassium, pl 3.4 3.3 - 4.9 mmol/L [facility] Chloride 107 97 - 110 mmol/L [facility] CO2 23 22 - 32 mmol/L [facility] Anion gap 12 2 - 15 mmol/L [facility] BUN 14 6 - 25 mg/dL [facility] Creatinine 0.79 0.60 - 1.10 mg/dL [facility] Glucose 95 70 - 199 mg/dL [facility] Comment: Interpretive Data Fasting glucose >/= 126 [...] classification and Diagnosis of Diabetes Diabetes Care 202; 46: S19-S40. Current interpretive data was last revised 2022. Calcium 9.5 8.5 - 10.3 mg/dL [facility] Bilirubin, total 0.4 0.1 - 1.2 mg/dL [facility] Protein, pl 6.8 6.5 - 8.5 g/dL [facility] Albumin 3.7 3.5 - 5.0 g/dL [facility] Alk phos 70 40 - 130 Units/L [facility] ALT 21 7 - 45 Units/L [facility] AST 29 10 - 45 Units/L [facility] Blood 03/06/2025 2:17 PM CDT 03/06/2025 6:20 PM CDT Kevin Hoang MD LAB BLOOD ORDERABLES Final Result [facility] [address] [facility] Department of Laboratories [place], [place] [id number] * ALT (03/06/2025 2:11 PM CDT) ALT 20 7 - 45 Units/L Blood Venous blood specimen / Unknown 03/06/2025 2:11 PM CDT 03/06/2025 6:20 PM CDT Torres Carl Jr., DPM LAB BLOOD ORDERABLES F inal Result Performing Organization Address City/[facility]/ZIP Co de Phone Number JARAD [facility] [place] [address] * AST (03/06/2025 2:11 PM CDT) AST 27 10 - 45 Units/L Blood Venous blood specimen / Unknown 03/06/2025 2:11 PM CDT 03/06/2025 6:20 PM CDT Torres Carl Jr., DPM LAB BLOOD ORDERABLES F inal Result Performing Organization Address [facility] [[email or web address]] de Phone Number JARAD [address] [address] * XR Knee Bilateral 4 or More [...] IMG XR PROCEDURES Final Res ult * [place] ARTHROCENTESIS ASPIR&/INJ MAJOR JT/BURSA W/O US (01/31/2025 10:45 AM CDT) Narrative Luis aMncini PA - 01/31/2025 10:45 AM CDT Luis [...] 7:05 AM CDT [facility] [address] [place] [address] Lower Extremity Venous Report Patient Name: PAULINE CUETO L : 1955 (69y 10m) Gender: F Study Date: 01/23/2025 01:54:38 PM Solar Pv Installer: LAURA Location: [facility] Order Provider: KEVIN [...] MD - 01/24/2025 [facility] [address] [place] [address] Lower Extremity Venous Report Patient Name: PAULINE CUETO L : 1955 (69y 10m) Gender: F Study Date: 01/23/2025 01:54:38 PM Solar Pv Installer: LAURA Location: SE Order Provider: KEVIN [...] Leonid Austin MD 01/24/2025 7:04:25 AM CDT us Kevin Hoang MD IM US PROCEDURES Final Res ult * HM MAMMOGRAPHY (12/25/2023 3:13 PM CDT) [facility] Provider HEALTH MAINTENANCE Final Result * Dexa Axial Skeleton Bone Density 1 Or 2 Site (05/11/2021 4:07 PM ELEMENTARY SCHOOL BAND DIRECTOR) Anatomical Region Laterality Modality Body N/A Other 05/12/2021 7:06 AM ELEMENTARY SCHOOL BAND DIRECTOR Impressions 05/12/2021 7:06 AM ELEMENTARY SCHOOL BAND DIRECTOR Normal bone mineral density of the spine and left hip. Electronically signed by: Denise Vail M.D. Narrative 05/12/2021 7:06 AM ELEMENTARY SCHOOL BAND DIRECTOR Examination: Bone densitometry of the lumbar [...] and left hip. Electronically signed by: Denise Vail, M.D. us Kevin Hoang MD IMG DXA PROCEDURES Final [...] GENERAL ORDERABLES Final Result Performing Organization Address City/State/[facility] Co ar Phone Number JARAD RAMOS [address] [address] Department [place] [address] * HM COLONOSCOPY (05/24/2016) Kristan Barriga MD HEALTH MAINTENANCE Final Result from Last 3 Months or Most Recently Relevant to Health Maintenance Insurance [facility] Address: [facility] [address] [place] [address] [address] [facility] [address] [place] [id number] [facility] MEDICARE ADVANTAGE [facility] Address: [address] [address] [place] [address] [facility] MEDICARE ADVANTAGE [facility] Address: [address] [address] [place] [address] Advance Directives For more information, please contact: [phone] * Full Code (Latest Code Status on File) Date Activated Date Inactivated Comments 10/28/2024 1:21 PM 10/31/2024 12:27 AM * Full Code Date Activated Date Inactivated Comments 09/20/2021 5:38 PM 09/22/2021 9:03 PM Care Teams Candle Maker Relationship Specialty Start Date End Date Kevin Hoang MD [address] [facility] [address] [place] [address] PCP - General Family Medicine 07/25/22 Luisito Conrad MD [address] [place] [address] Consulting Physician Ophthalmology 04/07/21 Audie Escalera MD [address] [facility] [address]ISELDA Lenz [place] [address] [place] [address] Surgeon Orthopedic Surgery 11/07/22 Robinson Iyer MD [address] [place] [address] DR GRISELDA Lenz [place] [place] [address] Consulting Physician General Surgery 11/07/22 Wilian Menard MD [address] [place] [address] Referring Physician Critical Care Med 11/28/24
--- OUTSIDE RECORDS SUMMARY | 2025-04-22 14:13 | XMS_ITS | Encounter Summary ---
Author Organization [facility] Healthcare Address [address] [place] [address] Care Team Providers Care Recycle Coordinator Name Role Phone Luisito Conrad MD Unavailable [phone] Kevin Hoang MD Primary Care Provider Audie Escalera MD Unavailable Robinson Iyer MD Unavailable Wilian Menard MD Unavailable [phone] Encounter Details Date Type Department Care Team (Late st Contact Info) Description 04/22/2025 Telephone [facility] Medical Group Primary Care at [place] [address] [place] [address] Kevin Hoang MD [facility] [address] [place] [address] Social History Tobacco Use Types Packs/Day Years Used Date Smoking Tobacco: Former Cigarettes 1 10 0 06/19/1971 - 1981 Smokeless Tobacco: Never Alcohol Use Standard Drinks/Week Comments Never 0 (1 standard drink = 0.6 oz pur e alcohol) [facility] Utilities Answer Date Recorded In the past [...] often do you attend chur ch or hindu services? Never 10/29/2024 Do you belong to any clubs o r organizations such as amish groups, unions, fraternal or athletic groups, or [...] time in the past 12 m [facility], were you homeless or living in a senior care (including now)? 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 I also spoke to her friend. She admitted that she did not take her reduced dose of verapamil (didn't pick it up from the pharmacy) and took the losartan 100 mg, with the verapamil 240 mg. From her recollection, her BP was 110 systolic, far lower than expected. Of course, she doesn't remember exactly. She was to begin the 120 mg dose of verapamil today instead of taking the full dose like she did. APHONE TRANSCRIBER documented in this encounter Plan of Treatment Not on file documented as of this encounter Visit Diagnoses Not on filedocumented in this encounter Care Teams Recycle Coordinator Relationship Specialty Start Date End Date Kevin Hoang MD [address] [facility] [place] [place] [address] PCP - General Family Medicine 07/25/22 Luisito Conrad MD [address] [place] [address] Consulting Physician Ophthalmology 04/07/21 Audie Escalera MD [address] [facility] [address] GRISELDA Lenz [place] [address] [place] [address] Surgeon Orthopedic Surgery 11/07/22 Robinson Iyer MD [address] [place] [address] [address] GRISELDA Lenz [place] [address] [place] [address] Consulting Physician General Surgery 11/07/22 Wilian Menard MD [address] [place] [address] Referring Physician Critical Care Med 11/28/24 documented as of this encounter
--- OUTSIDE RECORDS SUMMARY | 2025-04-22 14:13 | XMS_ITS | Encounter Summary ---
Author Organization [facility] Healthcare Address [address] [place] [address] Care Team Providers Care Baby Formula Worker Name Role Phone Luisito Conrad MD Unavailable [phone] Kevin Hoang MD Primary Care Provider Audie Escalera MD Unavailable Robinson Iyer MD Unavailable Wilian Menard MD Unavailable [phone] Reason for Visit * Reason Onset Date Comments Test Results 04/04/2025 04/03/25 Transth oracic Echo (TTE) Complete W Doppler/CF WO Contrast Encounter Details Date Type Department Care Team (Late st Contact Info) Description 04/04/2025 Results Follow-Up [facility] Medical Group Primary Care at [address] [address] Kevin Hoang MD [address] [place] [address] [place] [place] [address] Transthoracic Echo (TTE) Complete W Doppler/CF Social History Tobacco Use Types Packs/Day Years Used Date Smoking Tobacco: Former Cigarettes 1 10 0 06/19/1971 - 1981 Smokeless Tobacco: Never Alcohol Use Standard Drinks/Week Comments Never 0 (1 standard drink = 0.6 oz pur e alcohol) [facility] Utilities Answer Date Recorded In the [...] often do you attend chur ch or sikhism services? 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 Test Result Request Type of test: Transthoracic Echo (TTE) Complete W Doppler/CF WO Contrast Date of test: 04/03/25 Where was the test performed at?[facility] Medical Group Cardiology Did provider dictate result [...] on filedocumented in this encounter Care Teams Baby Formula Worker Relationship Specialty Start Date End Date Kevin Hoang MD [address] [facility] [address] [place] [address] PCP - General Family Medicine 07/25/22 Luisito Conard MD [address] [place] [address] Consulting Physician Ophthalmology 04/07/21 Audie Escalera MD [address] [place] [address] DR GRISELDA Lenz [address] [address] Surgeon Orthopedic Surgery 11/07/22 Robinson Iyer MD [address] [place] [address] DR GRISELDA Lenz [facility] [address] [place] [address] Consulting Physician General Surgery 11/07/22 Wilian Menard MD [address] [place] [address] Referring Physician Critical Care Med 11/28/24 documented as of this encounter
--- OUTSIDE RECORDS SUMMARY | 2025-04-22 14:13 | XMS_ITS | Encounter Summary ---
Author Organization [facility] Healthcare Address [address] [place] [address] Care Team Providers Care Sealing And Canceling Machine Operator Name Role Phone Luisito Conrad MD Unavailable [phone] Kevin Hoang MD Primary Care Provider Audie Escalera MD Unavailable Robinson Iyer MD Unavailable Wilian Menard MD Unavailable [phone] Encounter Details Date Type Department Care Team (Late st Contact Info) Description 12/05/2022 Telephone [facility] [address] [place] [address] Coreen Gonzalez, BOLA Social History Tobacco Use [...] on file Legal Sex Female 3:37 AM EXECUTIVE ADMINISTRATOR Gender Identity Not on file Sexual Orientation Not on file 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 Not on file Not on file documented as of this encounter Plan of Treatment Not on file documented as of this encounter Visit Diagnoses Not on filedocumented in this encounter Care Teams Sealing And Canceling Machine Operator Relationship Specialty Start Date End Date Kevin Hoang MD [address] [facility] [address] [place] [address] PCP - General Family Medicine 07/25/22 Luisito Conrad MD [facility]1 [place] [address] Consulting Physician Ophthalmology 04/07/21 Audie Escalera MD [address] [place] [address] [address] GRISELDA Lenz [place] [address] [place] [address] Surgeon Orthopedic Surgery 11/07/22 Robinson Iyer MD [address] [place] [address] [address] GRISELDA Lenz [place] [address] [place] [address] Consulting Physician General Surgery 11/07/22 Wilian Menard MD [address] [place] [address] Referring Physician Critical Care Med 11/28/24 documented as of this encounter
--- OUTSIDE RECORDS SUMMARY | 2025-04-22 14:13 | XMS_ITS | Encounter Summary ---
Author Organization [facility] Healthcare Address [address] [place] [address] Care Team Providers Care Casino Porter Name Role Phone Luisito Conrad MD Unavailable [phone] Kevin Hoang MD Primary Care Provider Audie Escalera MD Unavailable Robinson Iyer MD Unavailable Wilian Menard MD Unavailable Encounter Details Date Type Department Care Team (Late st Contact Info) Description 04/18/2025 Telephone [facility] Medical Group Primary Care at [place] [address] [place] [address] Kevin Hoang MD 2 [facility] [address] [place] [address] Social History Tobacco Use Types Packs/Day Years Used Date Smoking Tobacco: Former Cigarettes 1 10 0 06/19/1971 - 1981 Smokeless Tobacco: Never Alcohol Use Standard Drinks/Week Comments Never 0 (1 standard drink = 0.6 oz pur e alcohol) [facility] Utilities Answer Date Recorded In [...] often do you attend chur ch or jew services? Never 10/29/2024 Do you belong to any clubs o r organizations such as methodist groups, unions, fraternal or athletic groups, or [...] any time in the past [address] [facility], were you homeless or living in a chcf (including now)? 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 Not on file Not on file documented as of this encounter Plan of Treatment Not on file documented as of this encounter Visit Diagnoses Not on filedocumented in this encounter Care Teams Casino Porter Relationship Specialty Start Date End Date Kevin Hoang MD [address] [address] PCP - General Family Medicine 07/25/22 Luisito Conrad MD [address] [place] [address] Consulting Physician Ophthalmology 04/07/21 Audie Escalera MD [address] [facility] [address] GRISELDA Lenz [place] [address] [place] [address] Surgeon Orthopedic Surgery 11/07/22 Robinson Iyer MD [address] [facility] [address] GRISELDA Lenz [address] [place] [address] Consulting Physician General Surgery 11/07/22 Wilian Menard MD [address] [place] [address] Referring Physician Critical Care Med 11/28/24 documented as of this encounter
--- OUTSIDE RECORDS SUMMARY | 2025-04-22 14:13 | XMS_ITS | Encounter Summary ---
Author Organization [facility] Address [address] [place] [address] Phone Care Team Providers Care Site Acquisition Specialist Name Role Phone Wilian Belle MD Primary Care Provider [phone] uLisito Conrad MD Unavailable [phone] Kevin Hoang MD Primary Care Provider [phone] Kalee Morelos CMA Unavailable [phone] Kevin Hoang MD Primary Care Provider [phone] Audie Escalera MD Unavailable [phone] Robinson Iyer MD Unavailable Wilian Menard MD Unavailable [phone] Encounter Details Date Type Department Care Team (Latest Contact Info) Description 11/06/2017 Orders Only [facility] Scanning, Provider Social History Tobacco Use Types Packs/Day Years Used Date Smoking Tobacco: Never Assessed Comments Unknown Sex and Gender Information Value Date Recorded Sex Assigned at Not on file Legal Sex Female 3:37 AM DIPLOMA MEDICAL ASSISTANT Gender Identity Not on file Sexual [...] COVID: Suspected 05/10/2021 05/10/2021 05/10/2021 4:19 PM DIPLOMA MEDICAL ASSISTANT documented as of this encounter Care Teams Site Acquisition Specialist Relationship Specialty Start Date End Date Wilian Belel MD PCP - General Family Medicine 07/27/18 04/06/21 [place] [address] [place] [address] PCP - General Family Medicine 04/07/21 07/24/22 Kevin Hoang MD [address] [place] [address] [address] [place] [address] PCP - General Family Medicine 07/25/22 [place] [address] [place] [address] Consulting Physician Ophthalmology 04/07/21 Kalee Morelos, [facility] [address] [facility] [address] [place] [address] ACO Care Flexographic Press Operator 09/27/21 09/27/21 Audie Escalera MD [address] [place] [address] [address] [place] [address] Surgeon Orthopedic Surgery 11/07/22 Robinson Iyer MD [address] [facility] [address] [place] [address] Consulting Physician General Surgery 11/07/22 Wilian Menard MD [address] [place] [address] Referring Physician Critical Care Med 11/28/24 documented as of this encounter
--- OUTSIDE RECORDS SUMMARY | 2025-04-22 14:13 | XMS_ITS | Encounter Summary ---
Author Organization [facility] Healthcare Address [address] [place] [address] Care Team Providers Care Skein Washer Name Role Phone Luisito Conrad MD Unavailable [phone] Kevin Hoang MD Primary Care Provider [phone] Audie Escalera MD Unavailable [phone] Robinson Iyer MD Unavailable Wilian Menard MD Unavailable Reason for Visit * Reason Onset Date Comments Med Refill 04/16/2025 Encounter Details Date Type Department Care Team (Late st Contact Info) Description 04/16/2025 Telephone [facility] Medical Group Primary Care at [place] [address] [place] [address] Kevin Hoang MD [address] [place] [address] [address] [place] [address] Med Refill Social History Tobacco Use Types Packs/Day Years Used Date Smoking Tobacco: Former Cigarettes 1 10 0 06/19/1971 - 1981 Smokeless Tobacco: Never Alcohol Use Standard Drinks/Week Comments Never 0 (1 standard drink = 0.6 oz pur e alcohol) [facility] Utilities Answer Date Recorded In [...] often do you attend chur ch or zoroastrianism services? 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 [address] [place] [address] Surgeon Orthopedic Surgery 11/07/22 Robinson Iyer MD [address] [place] [address] DR GRISELDA Lenz [facility] [address] [place] [address] Consulting Physician General Surgery 11/07/22 iWlian Menard MD [address] [facility] [address] [place] [address] Referring Physician Critical Care Med 11/28/24 documented as of this encounter
--- OUTSIDE RECORDS SUMMARY | 2025-04-22 14:13 | XMS_ITS | Encounter Summary ---
Author Organization [facility] Healthcare Address [address] [place] [address] Care Team Providers Care Educational Guidance Counselor Name Role Phone Luisito Conrad MD Unavailable [phone] Kevin Hoang MD Primary Care Provider Audie Escalera MD Unavailable Robinson Iyer MD Unavailable Wilian Menard MD Unavailable [phone] Reason for Visit * Reason Onset Date Comments displaying signs of forgetfulness 04/22/2025 Encounter Details Date Type Department Care Team (Late st Contact Info) Description 04/22/[address] [facility] Medical Group Primary Care at [address] [address] Kevin Hoang MD [address] [place] [address] [address] [place] [address] displaying signs of forgetfulness Social History Tobacco Use Types Packs/Day Years Used Date Smoking Tobacco: Former Cigarettes 1 10 0 06/19/1971 - 1981 Smokeless Tobacco: Never Alcohol Use Standard Drinks/Week Comments Never 0 (1 standard drink = 0.6 oz pur e alcohol) [facility] Utilities Answer Date Recorded In the [...] often do you attend chur ch or taoism services? Never 10/29/2024 Do you belong to any clubs o r organizations such as christian groups, unions, fraternal or athletic groups, or [...] any time in the past 12 m [facility], were you homeless or living in a fpc (including now)? 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 Gabbi is more concerned with the forgetfulness and head aches. She is not comfortable with how thepatient is acting. Advised Gabbi to assess the patient and if she feels dillon the patient is unsafe that she should be sent to the ED for an eval. NE ENGINE DRIVER documented in this encounter Plan of Treatment Not on file documented as of this encounter Visit Diagnoses Not on filedocumented in this encounter Care Teams Educational Guidance Counselor Relationship Specialty Start Date End Date Kevin Hoang MD [address] [facility] [address] [place] [address] PCP - General Family Medicine 07/25/22 Luisito Conrad MD [address] [place] [address] Consulting Physician Ophthalmology 04/07/21 Audie Escalera MD [address] [facility] [address]ISELDA Lenz [address] [place] [address] Surgeon Orthopedic Surgery 11/07/22 Robinson Iyer MD [address] [facility] [address]ISEL[address] L[address] [place] [address] Consulting Physician General Surgery 11/07/22 Wilian Menard MD [address] [place] [address] Referring Physician Critical Care Med 11/28/24 documented as of this encounter
[2025-04-22 15:18] VITALS: BP 157/86; PULSE 93; RESP 18; TEMP 36.5; O2SAT 100
--- NOTE | 2025-04-22 15:37 | ED.HEATRA ---
HPI - Head Injury General Chief complaint: Head Injury Stated complaint: fell on Monday. Hit head.? LOC. confused Time Seen by Provider: 04/22/25 15:17 History of Present Illness HPI Narrative: This is a 70-year-old female with history of GERD, hyperlipidemia, hypertension, peripheral edema who presents the ED for a fall and head injury. Patient states that she had been in the hospital 3 days ago for some testing and was up on her feet for much of the morning but later in the day, she became weak and fell falling and hitting her right face on her hardwood floor. She is unsure of loss of consciousness. Patient thinks she has become increasingly confused today prompting her to come to the ED. she has a mild right-sided headache, denies numbness, tingling, weakness, fevers, chills, chest pain, shortness of breath no other injuries. Related Data Home Medications ?Medication ?Instructions ?Recorded ?Confirmed ?Last Taken ?Type atorvastatin 20 mg tablet 20 mg PO QHS 12/08/20 08/20/24 Unknown History famotidine 40 mg tablet 40 mg PO DAILY 07/31/24 08/20/24 Unknown History metformin 500 mg tablet 500 mg PO DAILY 07/31/24 08/20/24 Unknown History Allergies Allergy/AdvReac Type Severity Reaction Status Date / Time codeine Allergy Unknown Unknown Verified 12/31/24 14:51 venom-honey bee Allergy Unknown Unknown Verified 12/31/24 14:51 Review of Systems Review of Systems: Gen.: Denies fevers or chills Eyes: Denies eye pain or visual change ENT: Denies congestion Respiratory: Denies shortness of breath or cough CV: Denies chest pain or palpitations GI: Denies abdominal pain nausea, emesis or diarrhea denies burning, urgency, frequency or hematuria Musculoskeletal: Denies back pain or muscle pain Neuro: Denies numbness, tingling, weakness or focal weakness Skin: Denies rash Except as documented, all other systems reviewed and negative [facility] Past Medical History Medical History Dysphagia GERD (gastroesophageal reflux disease) Hiatal hernia Obesity (BMI 30.0-34.9) Osteopenia after menopause History of ITP Abdominal adhesions Surgical History Surgical History History of splenectomy Family History Family History Mother Family history of glaucoma Hypertension Father Hypertension Family history of cardiovascular disease Malignant neoplasm of prostate Social History Social History Smoking status: Former smoker Smoking end date: 06/19/86 Alcohol intake: current Do You Feel Safe in your Home?: Yes Lack of Transportation: No Lack of Food: Never True Current Housing: I Have Housing Concerned About Future Housing: No Difficulty Paying Gas/Electric Bills: No Difficulty Paying for Meds: No Education: Don't Know Difficulty w/ Childcare or Family Care: No Exam Narrative: APPEARANCE: No acute distress, nontoxic, resting in bed EYES: EOMI HEENT: Normocephalic, atraumatic, OMM RESPIRATORY: No respiratory distress Clear to auscultation bilaterally with no rhonchi wheezing or rales. CARDIOVASCULAR: Regular rate and rhythm without murmurs rubs or gallops. ABDOMINAL: Soft, nontender, nondistended, no rebound or guarding MUSCULOSKELETAl: Moves all extremities. No clubbing, cyanosis or edema. NEURO: Awake and alert. Following commands, speech normal, no focal deficits SKIN:: Warm, dry. No rashes lesions or abrasions PSYCHIATRIC: Normal affect/mood, Course Vital Signs Vital signs: Vital Signs Temperature 98.1 F 04/22/25 12:25 Pulse Rate 90 04/22/25 12:25 Respiratory Rate 16 04/22/25 12:25 Blood Pressure 149/81 H 04/22/25 12:25 Pulse Oximetry 97 04/22/25 12:25 Oxygen Delivery Room Air 04/22/25 12:25 Temperature 97.7 F 04/22/25 15:18 Pulse Rate 88 04/22/25 16:57 Respiratory Rate 18 04/22/25 16:57 Blood Pressure 150/92 H 04/22/25 16:57 Pulse Oximetry 96 04/22/25 16:57 Oxygen Delivery Room Air 04/22/25 15:18 MDM - Head Injury MDM Narrative Medical decision making narrative: 70-year-old female Presenting for fall 4 days ago with headache. On initial evaluation patient was in no acute distress afebrile, hemodynamic stable. Differentials include but are not limited to: Fracture, sprain, strain, contusion, intracranial hemorrhage, subdural hematoma, facial fracture Notable exam findings: Ecchymosis over the right forehead and right periorbital region Notable imaging findings: CT head and C-spine showed no acute abnormalities Patient was informed of imaging findings but then began to complain of shakiness and her hands so POC glucose was obtained and was 55 and on recheck was 39 so she was given apple juice. Regular labs were obtained which showed no significant abnormalities. Glucose did improve to 116. On further discussion with the patient, as she had not eaten anything today which is likely the cause of her hypoglycemia at this time. She was noted to have some erythema and swelling to her right lower extremity in a right lower extremity venous Doppler was obtained which was negative. This is likely a cellulitis. She was started on Keflex for this. Patient was deemed appropriate for discharge at this time. Patient was given a prescription for Keflex. Patient was advised follow-up with their PCP in the next week for re-evaluation. Patient was agreeable to this plan. Given strict return precautions. Medical Records Attestation: I reviewed the patient's medical records. Lab Data Attestation: I reviewed the patient's lab results. 04/22/25 16:42 04/22/25 17:33 Labs: Lab Results 04/22/25 04/22/25 04/22/25 Range/Units 15:34 15:36 16:12 WBC (4.5-10.0) K/mm3 RBC (4.2-5.4) M/mm3 Hgb (12.0-15.0) g/dL Hct (37.0-47.0) % MCV (80-100) fl MCH (26-34) pg MCHC (32-36) g/dl RDW (11.5-14.5) % Plt Count (150-375) k/mm3 MPV (7.4-10.4) fl Immature Gran % (Auto) (0-0.5) % Neut % (Auto) (45.5-73.1) % Lymph % (Auto) (18.3-44.2) % Harris % (Auto) (2.6-8.5) % Eos % (Auto) (0-4.4) % Baso % (Auto) (0.2-1.2) % Lymph # (Auto) (0.9-3.2) K/mm3 Harris # (Auto) (0.1-0.6) K/mm3 Eos # (Auto) (0-0.3) K/mm3 Baso # (Auto) (0.0-0.1) K/mm3 Abs Immat Gran (auto) (0.00-0.031) K/mm3 Absolute Neuts (auto) (1.3-6.7) K/mm3 Absolute Nucleated RBC (0.0-0.012) K/mm3 Nucleated RBC % (0.0-0.2) % Sodium (137-145) mmol/L Potassium (3.4-5.0) mmol/L Chloride (98-107) mmol/L Carbon Dioxide (22-30) mmol/L Anion Gap (4-12) mmol/L BUN (7-17) mg/dL Creatinine (0.7-1.0) mg/dL Estim Creat Clear Calc ml/min Estimated GFR (59 - ) Glucose (65-110) mg/dL POC Capillary Glucose 39 L* 55 L* 76 (65-105) mg/dl Calcium (8.4-10.2) mg/dL Total Bilirubin (0.2-1.3) mg/dL AST (14-36) U/L ALT (6-35) U/L Alkaline Phosphatase (38-126) U/L Total Protein (6.3-8.2) g/dL Albumin (3.5-5.1) g/dL 04/22/25 04/22/25 Range/Units 16:42 17:33 WBC 6.2 (4.5-10.0) K/mm3 RBC 3.81 L (4.2-5.4) M/mm3 Hgb 11.6 L (12.0-15.0) g/dL Hct 35.5 L (37.0-47.0) % MCV 93.2 (80-100) fl MCH 30.4 (26-34) pg MCHC 32.7 (32-36) g/dl RDW 16.0 H (11.5-14.5) % Plt Count 229 (150-375) k/mm3 MPV 10.9 H (7.4-10.4) fl Immature Gran % (Auto) 0.2 (0-0.5) % Neut % (Auto) 48.4 (45.5-73.1) % Lymph % (Auto) 39.4 (18.3-44.2) % Harris % (Auto) 8.5 (2.6-8.5) % Eos % (Auto) 2.7 (0-4.4) % Baso % (Auto) 0.8 (0.2-1.2) % Lymph # (Auto) 2.45 (0.9-3.2) K/mm3 Harris # (Auto) 0.5 (0.1-0.6) K/mm3 Eos # (Auto) 0.2 (0-0.3) K/mm3 Baso # (Auto) 0.1 (0.0-0.1) K/mm3 Abs Immat Gran (auto) 0.01 (0.00-0.031) K/mm3 Absolute Neuts (auto) 3.0 (1.3-6.7) K/mm3 Absolute Nucleated RBC 0.000 (0.0-0.012) K/mm3 Nucleated RBC % 0.0 (0.0-0.2) % Sodium 137 (137-145) mmol/L Potassium 3.4 (3.4-5.0) mmol/L Chloride 110 H (98-107) mmol/L Carbon Dioxide 22 (22-30) mmol/L Anion Gap 5 (4-12) mmol/L BUN 11 (7-17) mg/dL Creatinine 0.60 L (0.7-1.0) mg/dL Estim Creat Clear Calc 93 ml/min Estimated GFR > 60 (59 - ) Glucose 116 H (65-110) mg/dL POC Capillary Glucose (65-105) mg/dl Calcium 9.1 (8.4-10.2) mg/dL Total Bilirubin 0.7 (0.2-1.3) mg/dL AST 31 (14-36) U/L ALT 20 (6-35) U/L Alkaline Phosphatase 64 (38-126) U/L Total Protein 6.9 (6.3-8.2) g/dL Albumin 3.7 (3.5-5.1) g/dL Imaging Data Attestation: I personally reviewed and interpreted this imaging study as follows: Radiologist's impression: Impressions Cervical Spine CT 04/22/25 13:35 IMPRESSION: HEAD: 1. No acute intracranial findings. C-SPINE: 1. No acute fracture. Head CT 04/22/25 13:35 IMPRESSION: HEAD: 1. No acute intracranial findings. C-SPINE: 1. No acute fracture. Venous Doppler Study 04/22/25 16:33 Impression: Negative for DVT. Discharge Plan Discharge Clinical Impression: Hypoglycemia Cellulitis Qualifiers: Site of cellulitis: extremity Site of cellulitis of extremity: lower extremity Laterality: right Qualified Code(s): L03.115 - Cellulitis of right lower limb Fall Qualifiers: Encounter type: initial encounter Qualified Code(s): W19.XXXA - Unspecified fall, initial encounter Contusion Qualifiers: Encounter type: initial encounter Contusion area: head Contusion of head detail: other part of head Qualified Code(s): S00.83XA - Contusion of other part of head, initial encounter Patient Disposition: Home Condition: Stable Instructions: Antibiotic Form, Cellulitis (ED), Contusion in Adults (ED) Additional Instructions: You likely have cellulitis, there is no evidence of a DVT. Take Keflex as prescribed. Continue to follow with physical therapy regarding swelling in your legs. Follow up with the PCP in the next week for re-evaluation. Return to the ED for any new or worsening symptoms. Patient Language: Thai Prescriptions: New cephalexin 500 mg capsule 500 mg PO Q8H 7 Days Qty: 21 0RF No Action famotidine 40 mg tablet 40 mg PO DAILY metformin 500 mg tablet 500 mg PO DAILY atorvastatin 20 mg tablet 20 mg PO QHS montelukast 10 mg tablet See Rx Instructions .ROUTE .COMPLEX Qty: 90 3RF Dose Instruction: TAKE 1 TABLET BY MOUTH EVERYDAY AT BEDTIME Rx Instructions: TAKE 1 TABLET BY MOUTH EVERYDAY AT BEDTIME azelastine 137 mcg (0.1 %) aerosol,spray See Rx Instructions .ROUTE .COMPLEX Qty: 30 3RF Dose Instruction: PLACE 1 SPRAY IN EACH NOSTRIL EVERY 12 HOURS Rx Instructions: PLACE 1 SPRAY IN EACH NOSTRIL EVERY 12 HOURS alprazolam [Xanax] 0.25 mg tablet 0.25 mg PO BID PRN (Reason: anxiety) Qty: 60 5RF albuterol sulfate [ProAir HFA] 90 mcg/actuation HFA aerosol inhaler 2 puff inhalation Q4H PRN (Reason: shortness of breath or wheezing) Qty: 8.5 2RF lisinopril-hydrochlorothiazide 20-12.5 mg tablet See Rx Instructions .ROUTE .COMPLEX Qty: 180 3RF Dose Instruction: TAKE 1 TABLET BY MOUTH TWICE A DAY Rx Instructions: TAKE 1 TABLET BY MOUTH TWICE A DAY fluticasone propionate 50 mcg/actuation spray,suspension See Rx Instructions .ROUTE .COMPLEX Qty: 48 3RF Dose Instruction: SPRAY 2 SPRAYS INTO EACH NOSTRIL EVERY DAY Rx Instructions: SPRAY 2 SPRAYS INTO EACH NOSTRIL EVERY DAY verapamil 120 mg tablet 120 mg PO BID Qty: 60 0RF Rx Instructions: LAST REFILL UNTIL SEEN sertraline 50 mg tablet 100 mg PO DAILY Qty: 60 0RF Rx Instructions: LAST REFILL UNTIL SEEN Trelegy Ellipta 200-62.5-25 mcg blister with device See Rx Instructions .ROUTE .COMPLEX Qty: 60 5RF Dose Instruction: INHALE 1 PUFF BY MOUTH DAILY RINSE MOUTH AND SPIT AFTER EACH USE Rx Instructions: INHALE 1 PUFF BY MOUTH DAILY RINSE MOUTH AND SPIT AFTER EACH USE Follow-up/Referrals: Natalya,Kevin Hayes MD [Primary Care Provider, Unknown]
--- OUTSIDE RECORDS SUMMARY | 2025-04-22 16:42 | XMS_ITS | Encounter Summary ---
Author Organization [facility] Healthcare Address [address] [place] [address] Care Team Providers Care Rural Mail Carrier Name Role Phone Luisito Conrad MD Unavailable [phone] Kevin Hoang MD Primary Care Provider Audie Escalera MD Unavailable Robinson Iyer MD Unavailable Wilian Menard MD Unavailable Reason for Visit * Reason Onset Date Comments Test Results 04/04/2025 04/03/25 Transth oracic Echo (TTE) Complete W Doppler/CF WO Contrast Encounter Details Date Type Department Care Team (Late st Contact Info) Description 04/04/2025 Results Follow-Up [facility] Medical Group Primary Care at [address] [address] Kevin Hoang MD [address] [place] [address] [address] [place] [address] Transthoracic Echo (TTE) Complete W Doppler/CF Social History Tobacco Use Types Packs/Day Years Used Date Smoking Tobacco: Former Cigarettes 1 10 0 06/19/1971 - 1981 Smokeless Tobacco: Never Alcohol Use Standard Drinks/Week Comments Never 0 (1 standard drink = 0.6 oz pur e alcohol) [facility] Utilities Answer Date Recorded In the past [...] often do you attend chur ch or mosque services? Never 10/29/2024 Do you belong to any clubs o r organizations such as episcopalian groups, unions, fraternal or athletic groups, or [...] any time in the past 12 m [facility], were you homeless or living in a jail (including now)? 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 Test Result Request Type of test: Transthoracic Echo (TTE) Complete W Doppler/CF WO Contrast Date of test: 04/03/25 Where was the test performed at?[facility] Medical Group Cardiology Did provider [...] on filedocumented in this encounter Care Teams Rural Mail Carrier Relationship Specialty Start Date End Date Kevin Hoang MD [address] [facility] [address] [place] [address] PCP - General Family Medicine 07/25/22 Luisito Conrad MD [address] [place] [address] Consulting Physician Ophthalmology 04/07/21 Audie Escalera MD [address] [place] [address] DR GRISELDA Lenz [address] [address] Surgeon Orthopedic Surgery 11/07/22 Robinson Iyer MD [address] [place] [address] DR GRISELDA Lenz [facility] [address] [place] [address] Consulting Physician General Surgery 11/07/22 Wilian Menard MD [address] [place] [address] Referring Physician Critical Care Med 11/28/24 documented as of this encounter
--- OUTSIDE RECORDS SUMMARY | 2025-04-22 16:42 | XMS_ITS | Encounter Summary ---
Author Organization [facility] Healthcare Address [address] [place] [address] Care Team Providers Care Bacon Skinner Name Role Phone Luisito Conrad MD Unavailable [phone] Kevin Hoang MD Primary Care Provider [phone] Audie Escalera MD Unavailable [phone] Robinson Iyer MD Unavailable Wilian Menard MD Unavailable Encounter Details Date Type Department Care Team (Late st Contact Info) Description 04/18/2025 Telephone [facility] Medical Group Primary Care at [place] [address] [place] [address] Kevin Hoang MD 2 [facility] [address] [place] [address] Social History Tobacco Use Types Packs/Day Years Used Date Smoking Tobacco: Former Cigarettes 1 10 0 06/19/1971 - 1981 Smokeless Tobacco: Never Alcohol Use Standard Drinks/Week Comments Never 0 (1 standard drink = 0.6 oz pur e alcohol) [facility] Utilities Answer Date Recorded In the [...] often do you attend chur ch or mu-ism services? 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 Not on file Not on file documented as of this encounter Plan of Treatment Not on file documented as of this encounter Visit Diagnoses Not on filedocumented in this encounter Care Teams Bacon Skinner Relationship Specialty Start Date End Date Kevin Hoang MD [address] [address] PCP - General Family Medicine 07/25/22 Luisito Conrad MD [address] [place] [address] Consulting Physician Ophthalmology 04/07/21 Audie Escalera MD [address] [facility] [address] GRISELDA Lenz [facility] [address] [place] [address] Surgeon Orthopedic Surgery 11/07/22 Robinson Iyer MD [address] [facility] [address] GRISELDA Lenz [facility] [address] [place] [address] Consulting Physician General Surgery 11/07/22 Wilian Menard MD [address] [place] [address] Referring Physician Critical Care Med 11/28/24 documented as of this encounter
--- OUTSIDE RECORDS SUMMARY | 2025-04-22 16:42 | XMS_ITS | Encounter Summary ---
Author Organization [facility] Healthcare Address [address] [place] [address] Care Team Providers Care Gis Coordinator Name Role Phone Luisito Conard MD Unavailable [phone] Kevin Hoang MD Primary Care Provider Audie Escalera MD Unavailable [phone] Robinson Iyer MD Unavailable Wilian Menard MD Unavailable [phone] Reason for Visit * Reason Onset Date Comments Med Refill 04/16/2025 Encounter Details Date Type Department Care Team (Late st Contact Info) Description 04/16/2025 Telephone [facility] Medical Group Primary Care at [place] [address] [place] [address] Kevin Hoang MD [address] [place] [address] [address] [place] [address] Med Refill Social History Tobacco Use Types Packs/Day Years Used Date Smoking Tobacco: Former Cigarettes 1 10 0 06/19/1971 - 1981 Smokeless Tobacco: Never Alcohol Use Standard Drinks/Week Comments Never 0 (1 standard drink = 0.6 oz pur e alcohol) [facility] Utilities Answer Date Recorded In the [...] often do you attend chur ch or evangelical services? 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 Not on file [...] on filedocumented in this encounter Care Teams Gis Coordinator Relationship Specialty Start Date End Date Kevin Hoang MD 2 [facility] [address] [place] [address] PCP - General Family Medicine 07/25/22 Luisito Conrad MD [address] [place] [address] Consulting Physician Ophthalmology 04/07/21 Audie Escalera MD [address] [facility] [address] GRISELDA Lenz [facility] [address] [place] [address] Surgeon Orthopedic Surgery 11/07/22 Robinson Iyer MD [address] [place] [address] [address] GRISELDA Lenz [facility] [address] [place] [address] Consulting Physician General Surgery 11/07/22 Wilian Menard MD [address] [facility] [address] [place] [address] Referring Physician Critical Care Med 11/28/24 documented as of this encounter
--- OUTSIDE RECORDS SUMMARY | 2025-04-22 16:42 | XMS_ITS | Encounter Summary ---
Author Organization [facility] Address [address] [place] [address] Phone Care Team Providers Care Pizza Chef Name Role Phone Wilian Belle MD Primary Care Provider [phone] Luisito Conrad MD Unavailable [phone] Kevin Hoang MD Primary Care Provider [phone] Kalee Morelos CMA Unavailable [phone] Kevin Hoang MD Primary Care Provider [phone] Audie Escalera MD Unavailable [phone] Robinson Iyer MD Unavailable Wilian Menard MD Unavailable [phone] Encounter Details Date Type Department Care Team (Latest Contact Info) Description 11/06/2017 Orders Only [facility] Scanning, Provider Social History Tobacco Use Types Packs/Day Years Used Date Smoking Tobacco: Never Assessed Comments Unknown Sex and Gender Information Value Date Recorded Sex Assigned at Not on file Legal Sex Female 3: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 MILL 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 Gender Identity Not on file Sexual [...] COVID: Suspected 05/10/2021 05/10/2021 05/10/2021 4:19 PM STRUCTURAL MILL SUPERVISOR documented as of this encounter Care Teams Pizza Chef Relationship Specialty Start Date End Date Wilian Belle MD PCP - General Family Medicine 07/27/18 04/06/21 [place] [address] [place] [address] PCP - General Family Medicine 04/07/21 07/24/22 Kevin Hoang MD [address] [place] [address] [address] [place] [address] PCP - General Family Medicine 07/25/22 [place] [address] [place] [address] Consulting Physician Ophthalmology 04/07/21 Kalee Morelos, [facility] [address] [facility] [address] [place] [address] ACO Care Pit Tanner 09/27/21 09/27/21 Audie Escalera MD [address] [place] [address] [address] [place] [address] Surgeon Orthopedic Surgery 11/07/22 Robinson Iyer MD [address] [facility] [address] [place] [address] Consulting Physician General Surgery 11/07/22 Wilian Menard MD [address] [place] [address] Referring Physician Critical Care Med 11/28/24 documented as of this encounter
--- OUTSIDE RECORDS SUMMARY | 2025-04-22 16:42 | XMS_ITS | Encounter Summary ---
Author Organization [facility] Healthcare Address [address] [place] [address] Care Team Providers Care Rfid Systems Architect Name Role Phone Luisito Conrad MD Unavailable [phone] Kevin Hoang MD Primary Care Provider Audie Escalera MD Unavailable Robinson Iyer MD Unavailable Wilian Menard MD Unavailable Reason for Visit * Reason Onset Date Comments Medical Question/Miscellaneous 04/22/2025 Encounter Details Date Type Department Care Team (Late st Contact Info) Description 04/22/2025 Telephone [facility] Medical Group Primary Care at [address] [address] Kevin Hoang MD [address] [place] [address] [address] [place] [address] Medical Question/Miscellaneous Social History Tobacco Use Types Packs/Day Years Used Date Smoking Tobacco: Former Cigarettes 1 10 0 06/19/1971 - 1981 Smokeless Tobacco: Never Alcohol Use Standard Drinks/Week Comments Never 0 (1 standard drink = 0.6 oz pur e alcohol) [facility] Utilities Answer Date Recorded In [...] often do you attend chur ch or confucianist services? 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 She's currently at the hospital and the testing he was waiting on has been completed. Does message need to be routed? Yes-FYI Only SURE SUPERVISOR * Telephone Encounter - Kevin Hoang MD - 04/22/2025 12:20 PM PRESSURE SUPERVISOR Called Pauline, she was at ER with [...] taking the full dose like she did. SURE SUPERVISOR documented in this encounter Plan of Treatment Not on file documented as of this encounter Visit Diagnoses Not on filedocumented in this encounter Care Teams Rfid Systems Architect Relationship Specialty Start Date End Date Kevin Hoang MD [address] [facility] [address] [place] [address] PCP - General Family Medicine 07/25/22 Luisito Conrad MD [facility] [place] [address] Consulting Physician Ophthalmology 04/07/21 Audie Escalera MD [address] [facility] [address] GRISELDA Lenz [facility] [address] [place] [address] Surgeon Orthopedic Surgery 11/07/22 Robinson Iyer MD [address] [facility] [address] GRISELDA Lenz [facility] [address] [place] [address] Consulting Physician General Surgery 11/07/22 Wilian Menard MD [address] [place] [address] Referring Physician Critical Care Med 11/28/24 documented as of this encounter
--- OUTSIDE RECORDS SUMMARY | 2025-04-22 16:42 | XMS_ITS | Clinical Summary ---
Author Organization [facility] Address [address] [place] [address] Care Team Providers Care Skimmer Scoop Operator Name Role Phone Luisito Conrad MD Unavailable [phone] Kevin Hoang MD Primary Care Provider [phone] Audie Escalera MD Unavailable [phone] Robinson Iyer MD Unavailable Wilian Menard MD [...] Assessment & Plan (05/22/2024 11:47 AM ELEMENTARY SPANISH TEACHER): -Recommended: Healthy diet. Avoiding junk food/fast food. [...] Assessment & Plan (05/22/2024 11:46 AM ELEMENTARY SPANISH TEACHER): Stable on current medication. Continue sertraline 100mg as ordered. May follow up in 6 months Also uses amitriptyline 10mg at bedtime for sleep Memory loss 11/11/2022 Class 2 severe obesity due t o excess calories with serious comorbidity and body mass index (BMI) of 36.0 to 36.9 in adult 01/07/2022 Assessment & Plan (05/24/2024 10:39 PM ELEMENTARY SPANISH TEACHER): BMI Follow-up includes: exercise counseling. Assessment & Plan (11/15/2023 10:35 AM CDT): BMI Follow-up includes: nutrition counseling, exercise counseling, and education provided. Assessment & Plan (05/10/2023 10:58 AM ELEMENTARY SPANISH TEACHER): BMI Follow-up includes: nutrition counseling, exercise counseling, [...] Assessment & Plan (08/19/2021 1:48 PM ELEMENTARY SPANISH TEACHER): Outside of the shortness of breath, which [...] Assessment & Plan (04/28/2021 10:08 AM ELEMENTARY SPANISH TEACHER): I'm not convinced serious injury; we will treat conservatively for a week, with ibuprofen 600-800 mg every 8 hours as needed, ice and heat to the tender area 3- 4 times a day, 20 min's per. Xray will be held in abeyance unless not improving through the week. Let us know Allergic rhinitis 04/07/2021 Assessment & Plan (08/10/2022 11:34 AM ELEMENTARY SPANISH TEACHER): Nasal saline spray (Simply saline, Little Remedies, [place], [place]) 2 second sprays or 2 squeezes into [...] Assessment & Plan (05/22/2024 11:45 AM ELEMENTARY SPANISH TEACHER): Stable/ Improved. Blood pressure is adequately controlled on lisinopril (Prinivil) and hydrochlorothiazide, verapamil . We will not make any medication changes today. Will have her follow-up in 6 months for continued monitoring and management Assessment & Plan (05/12/2023 2:28 PM ELEMENTARY SPANISH TEACHER): Continuing verapamil, lisinopril-hct Labs ordered for next visit Discussed herbals. Might look into turmeric, krill oil with hyaluronic acid (e.g Solomon-Red), collagen joint supplement Continue good exercise practice, but don't push too far beyond tolerance. 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 Pharmacotherapy as ordered.- atorvastatin Lipids will be reassessed in 6 months. Idiopathic peripheral neuropathy COPD (chronic obstructive pulmonary disease) Assessment & Plan (05/24/2024 10:40 PM ELEMENTARY SPANISH TEACHER): Changing food services director. Due to proximity Assessment & Plan (12/12/2023 [...] Assessment & Plan (08/11/2022 12:49 PM ELEMENTARY SPANISH TEACHER): Pepcid 40 mg at bedtime Chronic maxillary sinusitis 07/05/2022 05/22/2024 Assessment & Plan (07/05/2022 12:05 PM ELEMENTARY SPANISH TEACHER): Nasal saline spray (Simply saline, Little Remedies, [place], [place]) 2 second sprays or 2 squeezes into [...] (08/24/2021): Added automatically from request for surgery [id number] Assessment & Plan (10/07/2021 10:53 AM CDT): [...] Assessment & Plan (07/30/2024 10:54 AM ELEMENTARY SPANISH TEACHER): I do not fully appreciate any fascial [...] Assessment & Plan (07/23/2024 11:48 AM ELEMENTARY SPANISH TEACHER): Not having pain, but it's inhibiting movement [...] Assessment & Plan (08/19/2021 1:46 PM ELEMENTARY SPANISH TEACHER): The patient has multiple fascial defects along [...] see a [facility] Weight loss and increase exercise Encounters Date Type Department Care Team Description 04/22/2025 Telephone [facility] Medical Group Primary Care at [address] [phone] Kevin Hoang MD Medical Question/Miscellaneous 04/22/2025 Telephone [facility] Primary Care at [address] [phone] Kevin Hoang MD displaying signs of forgetfulness 04/21/2025 2:45 PM ELEMENTARY SPANISH TEACHER Office Visit [facility] Primary Care at [address] [phone] Kevin Hoang MD Orthostatic hypotension (Primary Dx); Essential hypertension 04/18/2025 Nurse Triage [facility] Primary Care at [address] [phone] Kevin Hoang MD 04/18/2025 Telephone [facility] Primary Care at [address] [phone] Kevin Hoang MD 04/17/2025 Nurse Triage [facility] Primary Care at [address] [phone] Ekaterina Ontiveros, BOLA 04/16/2025 Telephone [facility] Primary Care at [address] [phone] Kevin Hoang MD Med Refill 04/10/2025 Orders Only [facility] Primary Care at [address] [phone] Kevin Hoang MD 04/08/2025 Telephone [facility] Primary Care at [address] [phone] Cate Fernandez MA compression stockings 04/08/2025 Telephone [facility] Primary Care at [address] [phone] Kevin Hoang MD Med Refill 04/04/2025 Results Follow-Up [facility] Primary Care at [address] [phone] Kevin Hoang MD Transthoracic Echo (TTE) Complete W Doppler/CF 04/03/2025 2:00 PM CDT Ancillary Procedure [facility] Cardiology at [address] [phone] Diastolic dysfunction; Edema of both lower extremities due to peripheral venous insufficiency 03/28/2025 11:45 AM CDT Office Visit [facility] Primary Care at [address] [phone] Kevin Hoang MD Diastolic dysfunction (Primary Dx); Edema of both lower extremities due to peripheral venous insufficiency; Anxiety disorder with panic attacks; Recurrent major depressive disorder, in partial remission; Lipedema of lower extremity 03/27/2025 Nurse Triage [facility] Primary Care at [address] [phone] Kevin Hoang MD 03/24/2025 Therapy [facility] Sports Medicine and Primary Care at [address] [phone] Kenia Waddell MA Primary osteoarthritis of both knees (Primary Dx); Edema of both lower extremities due to peripheral venous insufficiency 03/21/2025 11:30 AM CDT Office Visit [facility] Primary Care at [address] [phone] Kevin Hoang MD Edema of both lower extremities due to peripheral venous insufficiency (Primary Dx); Encounter for screening mammogram for malignant neoplasm of breast; Screening for osteoporosis; Asymptomatic menopausal state; Need for vaccination 03/21/2025 Telephone [facility] Primary Care at [address] [phone] Kevin Hoang MD Lab Results 03/20/2025 Telephone [facility] Primary Care at [address] [phone] Kevin Hoang MD Medical Records Request 03/06/2025 2:15 PM CDT Lab [address] [address] Essential hypertension; Class 2 severe obesity due to excess calories with serious comorbidity and body mass index (BMI) of 36.0 to 36.9 in adult (HCC); Mixed hyperlipidemia 03/06/2025 2:00 PM CDT Lab [address] [address] Dermatophytosis of nail (Primary Dx) 02/28/2025 10:45 AM CDT Office Visit [facility] Cardiology at [address] [place] [address] Wilian Foy MD Essential hypertension (Primary Dx) 02/28/2025 Telephone [facility] Cardiology [address] [facility] [address] [place] [phone] Brisa Nixon MA Torsemide 02/27/2025 Orders Only [facility] Medical Group Primary Care at [address] [phone] Kevin Hoang MD 02/11/2025 Telephone [facility] Medical Group Primary Care at [address] [phone] Kevin Hoang MD Med Refill 02/11/2025 Telephone [facility] Medical [facility] Primary Care at [address] [phone] Kevin Hoang MD Forms Request 02/03/2025 Orders Only [facility] Orthopedics and Sports Medicine [address] [place] [phone] Luis Mancini PA Primary osteoarthritis of both knees (Primary Dx); Quadriceps tendinitis; Weakness of right lower extremity 01/31/2025 11:00 AM CDT - 01/31/2025 11:59 PM CDT Hospital Encounter [facility] Orthopedics and Sports Medicine [address] [place] [phone] Discharge Disposition: Discharge to home or self care 01/31/2025 10:45 AM CDT Office Visit [facility] Orthopedics and Sports Medicine [address] [place] [address] [address] [place] [phone] Luis Mancini PA Primary osteoarthritis of both knees (Primary Dx); Quadriceps tendinitis; Weakness of right lower extremity 01/27/2025 Telephone [facility] Orthopedic and Sports Medicine [address] [place] [phone] Luis Mancini PA 01/24/2025 Telephone [facility] Orthopedics and Sports Medicine [address] [place] [address] [address] [place] [phone] Audie Escalera MD 01/23/2025 2:00 PM CDT Ancillary Procedure [facility] Vascular and Vein Surgery at [address] [place] [phone] Edema of both lower extremities due to peripheral venous insufficiency; Localized swelling, mass and lump, lower limb, bilateral 01/23/2025 Telephone [facility] Primary Care at [address] [phone] Kevin Hoang MD patient question about blood thinners 01/21/2025 Orders Only [facility] Primary Care at [address] [phone] Kevin Hoang MD 01/21/2025 Telephone [facility] Care [address] [address] Daxa Fisher Chart Review (error) 01/21/2025 ACO Quality [facility] Care [address] [address] Daxa Fisher from Last 3 Months Immunizations [...] Brain cancer Brother 2 Bone cancer Father [place] Arik Cancer Father Arcelia Arik Diabetes Father [...] drink = 0.6 oz pur e alcohol) [facility] Utilities Answer Date Recorded In the past 12 months has e [employer], gas, oil, or water Speed D[employer] by [employer] threatened to shut off services in your [...] often do you attend chur ch or restorationism services? 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 Not on file Not on file Not on file Last Filed Vital Signs Vital Sign Reading Time Taken Comments Blood Pressure 120/80 04/21/2025 3:02 PM ELEMENTARY SPANISH TEACHER Pulse 99 04/21/2025 3:02 PM ELEMENTARY SPANISH TEACHER Temperature 36 C (96.8 F) 04/21/2025 2:23 PM ELEMENTARY SPANISH TEACHER Respiratory Rate 16 04/21/2025 2:23 PM ELEMENTARY SPANISH TEACHER Oxygen Saturation 95% 04/21/2025 3:02 PM ELEMENTARY SPANISH TEACHER Inhaled Oxygen Concentration - - Weight 102.1 kg (225 lb) 04/21/2025 2:23 PM ELEMENTARY SPANISH TEACHER Height 175.3 cm (5' 9) 04/21/2025 2:23 PM ELEMENTARY SPANISH TEACHER Body Mass Index 33.23 04/21/2025 2:23 PM ELEMENTARY SPANISH TEACHER Plan of Treatment Health Maintenance Due Date [...] history exists Medical Devices Implanted Type Area Pattern Marker Device Identifier Shelf Expiration Date Model / Serial / Lot [id number] Phasix St Mesh With Echo 2 Positioning System 25cm X 33cm Implanted:Qty: 1 on 09/20/2021 by Robinson Iyer MD at [facility] N/A: Abdomen [employer] 11/13/2022 [id number] / / [id number] [employer]/C R Bard Sepramesh Ip Sepra 8x6in Monofilament Bioresorbable Composite Latex Free [id number] - [id number] Implanted:Qty: 1 on 10/28/2024 by Robinson Iyer MD at [facility] Abdomen [employer]/C R Bard 08/16/2025 [id number] / / [id number] Procedures Procedure Name Priority Date/Time Associated Diagnosis [...] AM CDT Primary osteoarthritis of both knees [place] ARTHROCENTESIS ASPIR&/INJ MAJOR JT/BURSA W/O US Routine [...] Routine (OP Routine) 05/11/2021 4:07 PM ELEMENTARY SPANISH TEACHER Screening for osteoporosis senior living (current) use of inhaled steroids HEPATITIS C [...] PM CDT Narrative 04/03/2025 3:51 PM CDT [facility] Medical Group Cardiology [address], [address], [place] [address] P:[phone] P:[phone] Echocardiographic Report Patient Name: PAULINE CUETO L : 1955 Study Date: 04/03/2025 2:18:31 PM Sex: F Radio Engineer: RYLEY Location: [facility] Ref Provider: KEVIN HOANG [...] FINDINGS: Interpretation Site: Exam was interpreted at [facility]. Left Ventricle: Normal left ventricular [...] Procedure Note Robinson Hurley MD - 04/03/2025 [facility] Medical Group Cardiology [address] [facility], [address], [place] [address] P:[phone] P:[phone] Echocardiographic Report Patient Name: PAULINE CUETO L : 1955 Study Date: 04/03/2025 2:18:31 PM Sex: F Radio Engineer: RYLEY Location: [facility] Ref Provider: KEVIN HOANG [...] FINDINGS: Interpretation Site: Exam was interpreted at [facility]. Left Ventricle: Normal left ventricular [...] sult * eGFR (03/06/2025 2:17 PM CDT) [facility] eGFR 81 >=60 mL/min/1. 73 m2 Comment: [...] Hoang MD LAB BLOOD ORDERABLES Final Result [facility] [address] [facility] Department [place] [address] * Differential, auto (03/06/2025 2:17 PM CDT) [facility] Neutrophil abs 3.27 1.50 - 6.50 K/cumm Imm gran abs 0.02 0.00 - 0.10 K/cumm [facility] Lymphocyte abs 2.85 0.80 - 3.30 K/cumm [facility] Monocyte abs 0.56 0.20 - 0.80 K/cumm [facility] Eosinophil abs 0.13 0.00 - 0.50 K/cumm [facility] Basophil abs 0.06 0.00 - 0.10 K/cumm [facility] Neutrophil pct 47.4 % [facility] Comment: Interpretive Data Percent cell count reference ranges are not reported, since discordance with absolute values may lead to misinterpretation of CBC data. Current Interpretive Data was last revised on 2017. Imm gran pct 0.3 % [facility] Comment: Interpretive Data Percent cell count reference ranges are not reported, since discordance with absolute values may lead to misinterpretation of CBC data. Current Interpretive Data was last revised on 2017. Lymphocyte pct 41.4 % [facility] Comment: Interpretive Data Percent cell count reference ranges are not reported, since discordance with absolute values may lead to misinterpretation of CBC data. Current Interpretive Data was last revised on 2017. Monocyte pct 8.1 % [facility] Comment: Interpretive Data Percent cell count reference ranges are not reported, since discordance with absolute values may lead to misinterpretation of CBC data. Current Interpretive Data was last revised on 2017. Eosinophil pct 1.9 % [facility] Comment: Interpretive Data Percent cell count reference ranges are not reported, since discordance with absolute values may lead to misinterpretation of CBC data. Current Interpretive Data was last revised on 2017. Basophil pct 0.9 % [facility] Comment: Interpretive Data Percent cell count reference ranges are not reported, since discordance with absolute values may lead to misinterpretation of CBC data. Current Interpretive Data was last revised on 2017. Blood 03/06/2025 2:17 PM CDT 03/06/2025 6:20 PM CDT Kevin Hoang MD LAB BLOOD ORDERABLES Final Result Performing Organization Address [facility] Co de Phone Number [facility] [address] [facility] Department [place] [address] * Thyroid Function [place] (03/06/2025 2:17 PM CDT) TSH 1.62 0.30 - 4.20 mcIUnit/mL Blood 03/06/2025 2:17 PM CDT 03/06/2025 6:20 PM CDT Kevin Hoang MD LAB BLOOD ORDERABLES Final Result Performing Organization Address City/[facility]/ZIP Co de Phone Number [address] [address] * (ABNORMAL) CBC with auto differential (03/06/2025 2:17 PM CDT) [facility] WBC 6.89 3.80 - 9.90 K/cumm Hgb 12.0 11.9 - 15.5 g/dL [facility] Hct 36.5 35.6 - 45.5 % [facility] Plt 202 150 - 400 K/cumm [facility] MPV 12.2 9.1 - 12.3 fL [facility] RBC 3.96 3.90 - 5.20 M/cumm [facility] MCV 92.2 81.3 - 96.4 fL [facility] MCH 30.3 27.1 - 33.3 pg [facility] MCHC 32.9 32.3 - 35.7 g/dL [facility] RDW CV 15.2(H) 11.1 - 14.9 % [facility] RDW SD 50.5(H) 35.7 - 48.1 fL [facility] NRBC abs 0.00 0.00 - 0.01 K/cumm [facility] Blood 03/06/2025 2:17 PM CDT 03/06/2025 6:20 PM CDT Kevin Hoang MD LAB BLOOD ORDERABLES Final Result Performing Organization Address [facility] Co de Phone Number [address] [place] [address] * Vitamin D 25 hydroxy (03/06/2025 2:17 PM CDT) [facility] Vitamin D 25-OH 31.0 30.0 - 80.0 ng/mL Blood 03/06/2025 2:17 PM CDT 03/06/2025 6:20 PM CDT Kevin Hoang MD LAB BLOOD ORDERABLES Final Result Performing Organization Address City/[facility]/ZIP Co de Phone Number [address] [place] [address] * (ABNORMAL) Lipid panel (03/06/2025 2:17 PM [...] NCEP Expert Panel. Circulation 2004;110:227 3. Lakhwinder M et al. NA Cardiol. 2020 October 17;5(5):540-548. [...] LAB BLOOD ORDERABLES Final Result JARAD LLAMAS [address] [facility] Department [place] [address] * Comprehensive metabolic panel (03/06/2025 2:17 PM CDT) Sodium 142 135 - 145 mmol/L Potassium, pl 3.4 3.3 - 4.9 mmol/L [facility] Chloride 107 97 - 110 mmol/L [facility] CO2 23 22 - 32 mmol/L [facility] Anion gap 12 2 - 15 mmol/L [facility] BUN 14 6 - 25 mg/dL [facility] Creatinine 0.79 0.60 - 1.10 mg/dL [facility] Glucose 95 70 - 199 mg/dL [facility] Comment: Interpretive Data Fasting glucose >/= 126 [...] 2022. Calcium 9.5 8.5 - 10.3 mg/dL [facility] Bilirubin, total 0.4 0.1 - 1.2 mg/dL [facility] Protein, pl 6.8 6.5 - 8.5 g/dL [facility] Albumin 3.7 3.5 - 5.0 g/dL [facility] Alk phos 70 40 - 130 Units/L [facility] ALT 21 7 - 45 Units/L [facility] AST 29 10 - 45 Units/L [facility] Blood 03/06/2025 2:17 PM CDT 03/06/2025 6:20 PM CDT Kevin Hoang MD LAB BLOOD ORDERABLES Final Result [facility] [address] [facility] Department [place] [address] * ALT (03/06/2025 2:11 PM CDT) ALT 20 7 - 45 Units/L Blood Venous blood specimen / Unknown 03/06/2025 2:11 PM CDT 03/06/2025 6:20 PM CDT us Torres Carl Jr., DPM LAB BLOOD ORDERABLES F inal Result Performing Organization Address City/[facility]/ZIP Co de Phone Number JARAD [address] [address] * AST (03/06/2025 2:11 PM CDT) AST 27 10 - 45 Units/L Blood Venous blood specimen / Unknown 03/06/2025 2:11 PM CDT 03/06/2025 6:20 PM CDT Torres Carl Jr., DP LAB BLOOD ORDERABLES F inal Result Performing Organization Address [facility] Co de Phone Number JARAD [address] [address] * XR Knee Bilateral 4 or More [...] IMG XR PROCEDURES Final Res ult * [place] ARTHROCENTESIS ASPIR&/INJ MAJOR JT/BURSA W/O US (01/31/2025 [...] 7:05 AM CDT [facility] [address] [place] [address] Lower Extremity Venous Report Patient Name: PAULINE CUETO L : 1955 (69y 10m) Gender: F Study Date: 01/23/2025 01:54:38 PM Radio Engineer: LAURA Location: [facility] Order Provider: KEVIN HOANG [...] MD - 01/24/2025 [facility] [address] [place] [address] Lower Extremity Venous Report Patient Name: PAULINE CUETO L : 1955 (69y 10m) Gender: F Study Date: 01/23/2025 01:54:38 PM Radio Engineer: LAURA Location: [facility] Order Provider: KEVIN HOANG [...] 7:04:25 AM CDT us Kevin Hoang MD IMG US PROCEDURES Final Res ult * HM MAMMOGRAPHY (12/25/2023 3:13 PM CDT) us Historical Provider [facility] Final Result * Dexa Axial Skeleton Bone Density 1 Or 2 Site (05/11/2021 4:07 PM ELEMENTARY SPANISH TEACHER) Anatomical Region Laterality Modality Body N/A Other 05/12/2021 7:06 AM ELEMENTARY SPANISH TEACHER Impressions 05/12/2021 7:06 AM ELEMENTARY SPANISH TEACHER Normal bone mineral density of the spine and left hip. Electronically signed by: Denise Vail M.D. [facility] 05/12/2021 7:06 AM ELEMENTARY SPANISH TEACHER Examination: Bone densitometry of the lumbar spine [...] GENERAL ORDERABLES Final Result Performing Organization Address City/State/[facility] Co dc Phone Number JARAD [address] [address] Department [place] [address] * HM COLONOSCOPY (05/24/2016) Kristan Barriga MD HEALTH MAINTENANCE Final Result from Last 3 Months or Most Recently Relevant to Health Maintenance Insurance [facility] MDCR HMO REF [facility] MEDICARE ADVANTAGE [facility] MEDICARE ADVANTAGE Advance Directives For more information, please contact: [phone] * Full Code (Latest Code Status on File) Date Activated Date Inactivated Comments 10/28/2024 1:21 PM 10/31/2024 12:27 AM * Full Code Date Activated Date Inactivated Comments 09/20/2021 5:38 PM 09/22/2021 9:03 PM Care Teams Skimmer Scoop Operator Relationship Specialty Start Date End Date Kevin Hoang MD [address] [facility] [address] [place] [address] PCP - General Family Medicine 07/25/22 Luisito Conrad MD [address] [place] [address] Consulting Physician Ophthalmology 04/07/21 Audie Escalera MD [address] [facility] [address] [place] [address] Surgeon Orthopedic Surgery 11/07/22 Robinson Iyer MD [address] [facility] [address] [place] [address] Consulting Physician General Surgery 11/07/22 Wilian Menard MD [address] [place] [address] Referring Physician Critical Care Med 11/28/24
--- OUTSIDE RECORDS SUMMARY | 2025-04-22 16:42 | XMS_ITS | Encounter Summary ---
Author Organization [facility] Healthcare Address [address] [place] [address] Care Team Providers Care Javascript Programmer Name Role Phone Luisito Conrad MD Unavailable [phone] Kevin Hoang MD Primary Care Provider Audie Escalera MD Unavailable Robinson Iyer MD Unavailable Wilian Menard MD Unavailable Reason for Visit * Reason Onset Date Comments displaying signs of forgetfulness 04/22/2025 Encounter Details Date Type Department Care Team (Late st Contact Info) Description 04/22/2025 Telephone [facility] Primary Care at [address] [address] Kevin Hoang MD [address] [place] [address] [address] [place] [address] displaying signs of forgetfulness Social History Tobacco Use Types Packs/Day Years Used Date Smoking Tobacco: Former Cigarettes 1 10 0 06/19/1971 - 1981 Smokeless Tobacco: Never Alcohol Use Standard Drinks/Week Comments Never 0 (1 standard drink = 0.6 oz pur e alcohol) [facility] Utilities Answer Date Recorded In the [...] often do you attend chur ch or yazidi services? 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 Patient was sent to [facility] for further evaluation TIER * Telephone Encounter - Cate Prieto MA - 04/22/2025 11:46 AM WARP TIER Gabbi called and stated that Pauline is [...] sent to the ED for an eval. TIER documented in this encounter Plan of Treatment Not on file documented as of this encounter Visit Diagnoses Not on filedocumented in this encounter Care Teams Javascript Programmer Relationship Specialty Start Date End Date Kevin Hoang MD [address] [facility] [address] [place] [address] PCP - General Family Medicine 07/25/22 Luisito Conrad MD [address] [place] [id number] Consulting Physician Ophthalmology 04/07/21 Audie Escalera MD [address] [place] [address] DR GRISELDA Lenz [facility] [address] [place] [address] Surgeon Orthopedic Surgery 11/07/22 Robinson Iyer MD [address] [place] [address] DR GRISELDA Lenz [facility] [address] [place] [address] Consulting Physician General Surgery 11/07/22 Wilian Menard MD [address] [place], [place] [id number] Referring Physician Critical Care Med 11/28/24 documented as of this encounter
--- OUTSIDE RECORDS SUMMARY | 2025-04-22 16:42 | XMS_ITS | Encounter Summary ---
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 Gender Identity Not on file Sexual Orientation Not on file 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 Not on file Not on file documented as of this encounter Plan of Treatment Not on file documented as of this encounter Visit Diagnoses Not on filedocumented in this encounter Care Teams Vegetable Trimmer Relationship Specialty Start Date End Date Kevin Hoang MD [address] [facility] [address] [place] [address] PCP - General Family Medicine 07/25/22 Luisito Conrad MD [facility] [place] [address] Consulting Physician Ophthalmology 04/07/21 Auide Escalera MD [address] [place] [address] DR GRISELDA Lenz [address] [place] [address] Surgeon Orthopedic Surgery 11/07/22 Robinson Iyer MD [address] [place] [address] DR GRISELDA Lenz [address] [place] [address] Consulting Physician General Surgery 11/07/22 Wilian Menard MD [address] [place] [address] Referring Physician Critical Care Med 11/28/24 documented as of this encounter
[2025-04-22 16:51] LABS: Hematocrit 35.5 % (37.0-47.0); Hemoglobin 11.6 g/dL (12.0-15.0); Immature Granulocyte Percent A 0.2 % (0-0.5); Lymphocytes Absolute Auto 2.45 K/mm3 (0.9-3.2); Mean Corpuscular HGB Conc 32.7 g/dl (32-36); Mean Corpuscular Hemoglobin 30.4 pg (26-34); Mean Corpuscular Volume 93.2 fl (80-100); Nucleated Red Blood Cells Absolute Auto 0.000 K/mm3 (0.0-0.012); Nucleated Red Blood Cells Perc 0.0 % (0.0-0.2); Platelet Count Result 229 k/mm3 (150-375); Red Blood Count 3.81 M/mm3 (4.2-5.4); White Blood Count 6.2 K/mm3 (4.5-10.0)
[2025-04-22 16:57] VITALS: BP 150/92; PULSE 88; RESP 18; O2SAT 96
[2025-04-22 17:50] LABS: Alanine Aminotransferase 20 U/L (6-35); Albumin Level 3.7 g/dL (3.5-5.1); Alkaline Phosphatase 64 U/L (38-126); Anion Gap 5 mmol/L (4-12); Aspartate Amino Transferase 31 U/L (14-36); Bilirubin,Total 0.7 mg/dL (0.2-1.3); Blood Urea Nitrogen 11 mg/dL (7-17); Calcium 9.1 mg/dL (8.4-10.2); Carbon Dioxide 22 mmol/L (22-30); Chloride 110 mmol/L (98-107); Estimated CRCL calculation 93 ml/min; Estimated Glomerular Filt Rate > 60; Glucose 116 mg/dL (65-110); Potassium 3.4 mmol/L (3.4-5.0); Sodium 137 mmol/L (137-145); Total Protein 6.9 g/dL (6.3-8.2)
== END 2025-04-22 18:35 | disposition home or self-care (01) ==
PROVIDERS: Emergency Provider Student in an Organized Health Care Education/Training Program; PCP Family Medicine
DX: S00.83XA Contusion of other part of head, initial encounter (principal); S00.11XA Contusion of right eyelid and periocular area, initial encounter; L03.115 Cellulitis of right lower limb; R22.41 Localized swelling, mass and lump, right lower limb; E16.2 Hypoglycemia, unspecified; K21.9 Gastro-esophageal reflux disease without esophagitis; K44.9 Diaphragmatic hernia without obstruction or gangrene; M85.80 Other specified disorders of bone density and structure, unspecified site; D69.3 Immune thrombocytopenic purpura; Z87.891 Personal history of nicotine dependence; Z90.81 Acquired absence of spleen; Z79.899 Other long term (current) drug therapy; W18.39XA Other fall on same level, initial encounter
CPT/HCPCS: 36415; 70450; 72125; 80053; 82948; 85025; 93971; 99284